=== PATIENT | female | born 1990 | race Caucasian/White ===

== ENCOUNTER 2017-12-14 10:06 | Outpatient (CLI) | payer MEDICAID, SELFPAY ==
--- NOTE | 2017-12-14 10:02 | DI.RAD_ITS ---
SYMPTOMS/DIAGNOSIS: LT WRIST PAIN LEFT WRIST: Three views. No priors. No bone or joint abnormality is identified. The soft tissues are unremarkable.
== END 2017-12-14 10:26 ==
PROVIDERS: PCP Nurse Practitioner Family; Visit Provider Physician Assistant
DX: M25.532 Pain in left wrist (principal)
CPT/HCPCS: 73110

== ENCOUNTER 2017-12-24 09:06 | Outpatient (CLI) | payer MEDICAID, SELFPAY ==
[2017-12-24 12:59] LABS: Anion Gap 8.5 mmol/L (3-11); BUN 12 mg/dL (7-18); CO2 27.5 mmol/L (21.0-32.0); CREATININE 0.72 mg/dL (0.55-1.02); Chloride 105 mmol/L (98-107); Cholesterol 192 mg/dL (50-200); Glucose 81 mg/dL (70-100); HDL Cholesterol 75 mg/dL (40-60); LDL CHOLESTEROL 114 mg/dL (<100); Potassium 4.3 mmol/L (3.5-5.1); Sodium 141 mmol/L (136-145); Triglyceride 51 mg/dL (30-150)
== END 2017-12-24 09:26 ==
PROVIDERS: PCP Nurse Practitioner Family; Visit Provider Nurse Practitioner Family
DX: F32.9 Major depressive disorder, single episode, unspecified (principal)
CPT/HCPCS: 36415; 80048; 80061; 83721

== ENCOUNTER 2018-05-02 08:32 | Emergency (ER) | payer MEDICAID, SELFPAY ==
[2018-05-02 08:59] VITALS: BP 103/66; PULSE 126; TEMP 37.5; O2SAT 100
--- NOTE | 2018-05-02 09:18 | DI.CT_ITS ---
SYMPTOMS/DIAGNOSIS: STREP THROAT, CONCERN FOR ABSCESS CT SCAN OF THE NECK: CT scan of the neck was performed following the uneventful administration of intravenous contrast material. There are no priors for comparison. The visualized intracranial structures are unremarkable. The visualized orbits and retroorbital soft tissues are unremarkable. The visualized paranasal sinuses are clear. The mastoid air cells are well pneumatized. There is mild enlargement of the palatine tonsils. No abscess is identified. No significant airway narrowing is seen. The remainder of the nasopharynx, oropharynx, hypopharynx and larynx are unremarkable. The thyroid gland is unremarkable. Subcentimeter lymph nodes are seen in the neck. These are likely reactive. The parotid and submandibular glands are unremarkable. The lung apices are clear. Mild degenerative changes are seen in the spine. IMPRESSION: 1. Mild enlargement of the palatine tonsils consistent with tonsillitis. 2. No evidence of an abscess. The findings were discussed with Dr. Felicita Garcia of the Emergency Department on the date of the examination.
[2018-05-02] MEDS: Lactated Ringers 1,000 ML 1000 ML IV ×2 (09:35→11:25)
[2018-05-02] MEDS: Normal Saline Flush 10 ML SYR IVP (09:35)
--- NOTE | 2018-05-02 09:44 | W.ED.GENAD ---
Discharge Plan Disposition Patient Disposition: HOME Condition: Stable Discharge Details Chief Complaint: Sorethroat Clinical Impression: Acute streptococcal pharyngitis Primary Care Provider: Nuzhat Garcia ED Provider: Felicita Garcia Home Meds and New Rx's Prescriptions: New penicillin V potassium 500 mg tablet 500 mg PO BID 10 Days Qty: 19 RF: 0 Continued diclofenac potassium 50 mg tablet 50 mg PO BID Qty: 30 RF: 0 sertraline 100 mg tablet 100 mg PO DAILY Qty: 90 RF: 4 No Action ondansetron HCl 8 mg tablet 8 mg PO TID PRN (Reason: nausea and vomiting) Qty: 30 RF: 0 prochlorperazine maleate [Compazine] 10 mg tablet 10 mg PO Q6H PRN (Reason: nausea and vomiting) Qty: 10 RF: 0 ranitidine HCl 300 mg capsule 300 mg PO QHS Qty: 14 RF: 0 Discharge Instructions Instructions: Pharyngitis (ED) Additional Instructions: Please return immediately to the emergency department if you develop any new or worsening symptoms or if you become otherwise concerned. It is extremely important that you make an appointment to be seen as soon as possible in follow-up for this visit by your primary care doctor. Stand Alone Forms: Work Release Referrals: Nuzhat Garcia GRADUATE ENGINEER [Primary Care Provider] - Discharge Data Discharge Date/Time-TO BE ENTERED AT DEPARTURE: 05/02/18 12:21 Medical Decision Making Amina Jones Is a 27-year-old woman with history of depression, TMJ pain who presented to the emergency department with sore throat since yesterday, also with difficulty swallowing and pain with lateral rotation of her neck. On exam patient appears uncomfortable but nontoxic. Posterior pharynx is erythematous, uvula is midline. Patient is tachycardic. Concern for bacterial pharyngitis, possible retropharyngeal abscess versus less likely peritonsillar abscess. Plan for screening labs, CT neck, IV fluid hydration. CT neck negative for abscess. Strep test positive. Dexamethasone given patient with significant pain with swallowing. She is taking fluids without issue in the emergency department at this time. On reassessment patient's heart rate is 100. Will treat with penicillin. I had a lengthy discussion with the patient regarding return to emergency department precautions, home care, and importance of outpatient follow-up with her PCP. Patient verbalized understanding of the plan and is amenable. All questions were answered. Medical Records Medical records reviewed: Yes I reviewed the patient's medical records. Imaging Data Radiologic Study: Attestation: I personally reviewed and interpreted this imaging study as follows: Radiologist's impression: CT SCAN OF THE NECK: CT scan of the neck was performed following the uneventful administration of intravenous contrast material. There are no priors for comparison. The visualized intracranial structures are unremarkable. The visualized orbits and retroorbital soft tissues are unremarkable. The visualized paranasal sinuses are clear. The mastoid air cells are well pneumatized. There is mild enlargement of the palatine tonsils. No abscess is identified. No significant airway narrowing is seen. The remainder of the nasopharynx, oropharynx, hypopharynx and larynx are unremarkable. The thyroid gland is unremarkable. Subcentimeter lymph nodes are seen in the neck. These are likely reactive. The parotid and submandibular glands are unremarkable. The lung apices are clear. Mild degenerative changes are seen in the spine. IMPRESSION: 1. Mild enlargement of the palatine tonsils consistent with tonsillitis. 2. No evidence of an abscess. Lab Data Lab results reviewed: Yes I reviewed the patient's lab results. Laboratory Tests Range/Units 05/02/18 05/02/18 05/02/18 09:35 09:35 09:35 WBC (4.4-10.8) k/cumm 13.75 H RBC (4.00-5.20) m/cumm 4.40 Hgb (12.0-15.5) g/dL 12.8 Hct (36.0-46.0) % 38.5 MCV (80-95) fL 87.5 MCH (27.0-33.0) pg 29.1 MCHC (32.0-36.0) g/dL 33.2 RDW (11.7-14.6) % 14.2 Plt Count (130-400) x1000/uL 224 MPV (8.0-11.0) fL 10.0 Immature Gran % 0.3 Neutrophils % 86.1 Lymphocytes % 7.2 Monocytes % 5.7 Eosinophils % 0.6 Basophils % 0.1 Absolute Neutrophils (1.2-6.7) k/cumm 11.84 H Absolute Lymphocytes (1.2-3.4) k/cumm 0.99 L Absolute Monocytes (0.11-0.7) k/cumm 0.78 H Absolute Eosinophils (0.0-0.7) k/cumm 0.08 Absolute Basophils (0.0-0.2) k/cumm 0.01 Sodium (136-145) mmol/L 134 L Potassium (3.5-5.1) mmol/L 3.6 Chloride (98-107) mmol/L 100 Carbon Dioxide (21.0-32.0) mmol/L 24.8 Anion Gap (3-11) mmol/L 9.2 BUN (7-18) mg/dL 10 Creatinine (0.55-1.02) mg/dL 0.75 Estimated GFR/1.73 m2 (mL/min/1.73m2) >= 60.00 Glucose (70-100) mg/dL 103 H Lactate (0.6-1.4) mmol/l 0.8 Calcium (8.5-10.1) mg/dL 8.8 HPI General Mode of arrival: ambulatory. Date/Time Provider Initiated Documentation: 05/02/18 09:18. Limitations to Documentation: no limitations. Information obtained by: patient, RN notes reviewed and old records reviewed. HPI Narrative: Amina Jones is a 27-year-old woman with history of depression, TMJ presents emergency department sore throat. Patient reports that she developed sore throat yesterday. Patient reports that she has had pain with swallowing, but has also noticed that it seems difficult for her to swallow. She has had decreased p.o. intake both food and fluids because of this. Patient reports sore throat is worse with turning her head and also swallowing. She has had fevers at home but has not measured temperature. She has had some nausea without vomiting. She denies other pain, shortness of breath, cough, rash, diarrhea. No other recent illness. No recent travel. Related Data Home Medications Medication Instructions Recorded Confirmed sertraline 100 mg tablet 100 mg PO DAILY #90 tab 03/11/18 05/05/18 diclofenac potassium 50 mg tablet 50 mg PO BID #30 tab 04/29/18 05/05/18 penicillin V potassium 500 mg PO BID 10 Days #19 tab 05/02/18 05/05/18 prochlorperazine maleate 10 mg PO Q6H PRN #10 tab 05/03/18 05/05/18 [Compazine] ranitidine HCl 300 mg PO QHS #14 cap 05/03/18 05/05/18 ondansetron HCl 8 mg tablet 8 mg PO TID PRN #30 tab 05/05/18 05/05/18 Previous Rx's Medication Instructions Recorded sertraline 100 mg tablet 100 mg PO DAILY #90 tab 03/11/18 diclofenac potassium 50 mg tablet 50 mg PO BID #30 tab 04/29/18 penicillin V potassium 500 mg PO BID 10 Days #19 tab 05/02/18 prochlorperazine maleate 10 mg PO Q6H PRN #10 tab 05/03/18 [Compazine] ranitidine HCl 300 mg PO QHS #14 cap 05/03/18 ondansetron HCl 8 mg tablet 8 mg PO TID PRN #30 tab 05/05/18 Allergies Allergy/AdvReac Type Severity Reaction Status Date / Time Sulfa (Sulfonamide Allergy Unknown Unverified 05/05/18 15:40 Antibiotics) naproxen AdvReac Unknown GI UPSET Unverified 05/05/18 15:40 General Stated Complaint: Sorethroat BONNIE: 3 Review of Systems Review of Systems Constitutional: reports fevers Eyes: denies eye pain ENT: denies facial pain, dental pain, ear pain, reports sore throat Cardiovascular: denies chest pain Respiratory: denies SOB, cough GI: denies abdominal pain, vomiting, diarrhea : denies flank pain MSK: denies back pain, neck pain, arthralgias, myalgias Skin: denies rash Neuro: denies headaches, numbness, weakness [facility] Medical History Left wrist pain (Acute) TMJ (temporomandibular joint disorder) (Chronic) BPPV (benign paroxysmal positional vertigo) (Inactive) Migraine headache with aura (Inactive) Surgical History H/O left knee surgery (Inactive ~2005) H/O tubal ligation (Inactive 09/30/15) section Family History Mother Diabetes Depression Hyperlipidemia Hypothyroidism Father Diabetes Hyperlipidemia Sister Hyperlipidemia Son ADHD Daughter No problems noted. Daughter No problems noted. Maternal Grandfather COPD (chronic obstructive pulmonary disease) Heart disease Chronic kidney disease Diabetes Depression Maternal Grandmother Colon cancer Paternal Grandfather Heart disease Myocardial infarction Paternal Grandmother Metastatic bone cancer Breast cancer Social History Smoking/Tobacco Use Status: Never Alcohol Intake: current Alcohol Intake frequency: a few times a month Drug use: Never Substance use type: does not use Household members: other Details: 4 current occupation: Cook Pets and animals: Yes Pets and animals: cat(s) Frequency: 3-4 times per week Special matilda needs: No Do you feel safe at home: Yes Do you feel safe in your relationship?: Yes Exam Narrative Exam Narrative: Constitutional: Uncomfortable but [id number], pleasant, conversing normally HENT: head atraumatic/normocephalic/normal inspection, mucous membranes moist. Posterior pharynx erythematous without exudate. Uvula midline. No intraoral lesion. Normal voice. Handling secretions without issue. Eyes: conjunctiva normal, sclera normal, pupils 3mm b/l Neck: no stridor, pain with lateral rotation in both directions, trachea midline Chest: normal inspection Resp: normal work of breathing, LCTAB Cardio: Tachycardic rate, normal rhythm, no murmur appreciated Back: normal inspection, no rash Skin: warm, dry, normal color, no rash Neuro: alert, not altered, grossly non-focal, normal tone Ext: no edema Psych: normal mood, normal affect, normal behavior Course Vital Signs Temperature 37.5 C 05/02/18 08:59 Pulse 126 H 05/02/18 08:59 Blood Pressure 103/66 05/02/18 08:59 Pulse Oximetry 100 05/02/18 08:59 Temperature 37.5 C 05/02/18 08:59 Temperature Source Skin 05/02/18 08:59 Pulse 126 H 05/02/18 08:59 Blood Pressure 103/66 05/02/18 08:59 Blood Pressure Position Sitting 05/02/18 08:59 Pulse Oximetry 100 05/02/18 08:59 Oxygen Delivery Method Room Air 05/02/18 08:59 Oxygen Flow Rate 0 05/02/18 08:59 Lab/Test Results Lab/Test Results: POC Strep Test-QUINN(Rapid) Start: 05/02/18 09:03 Freq: Status: Active Protocol: Document 05/02/18 09:03 CT (Rec: 05/02/18 09:03 CT [id number]) Strep test-QUINN(Rapid)-POC POC-Strep test-QUINN (Rapid) Positive POC-Strep test-QUINN (Rapid) Positive
[2018-05-02 09:46] LABS: Lactate-non-spesis 0.8 mmol/l (0.6-1.4)
[2018-05-02 09:49] LABS: Abs Immature Grans 0.04 k/cumm (0.0-0.09); Absolute Basophil Count 0.01 k/cumm (0.0-0.2); Absolute Eosinophil Count 0.08 k/cumm (0.0-0.7); Absolute Lymphocyte Count 0.99 k/cumm (1.2-3.4); Absolute Monocyte Count 0.78 k/cumm (0.11-0.7); Absolute Neutrophil Count 11.84 k/cumm (1.2-6.7); Basophils % 0.1; Eosinophils % 0.6; HCT 38.5 % (36.0-46.0); HGB 12.8 g/dL (12.0-15.5); Immature Grans % 0.3; Lymphocytes % 7.2; Mean Corp. HGB Concentration 33.2 g/dL (32.0-36.0); Mean Corpuscular Hemoglobin 29.1 pg (27.0-33.0); Mean Corpuscular Volume 87.5 fL (80-95); Monocytes % 5.7; Neutrophils % 86.1; Platelet Count 224 x1000/uL (130-400); RBC Distribution Width 14.2 % (11.7-14.6); White Blood Cell Count 13.75 k/cumm (4.4-10.8)
[2018-05-02 09:56] LABS: Anion Gap 9.2 mmol/L (3-11); BUN 10 mg/dL (7-18); CO2 24.8 mmol/L (21.0-32.0); CREATININE 0.75 mg/dL (0.55-1.02); Calcium 8.8 mg/dL (8.5-10.1); Chloride 100 mmol/L (98-107); Glucose 103 mg/dL (70-100); Potassium 3.6 mmol/L (3.5-5.1); Sodium 134 mmol/L (136-145)
[2018-05-02] MEDS: Omnipaque 350 MG/ML 100 ML BTL IV (10:29)
[2018-05-02] MEDS: Penicillin V POTASSIUM 500 MG TAB PO (10:53)
[2018-05-02 11:15] VITALS: BP 106/63; PULSE 112; RESP 14; TEMP 37.9; O2SAT 99
[2018-05-02 11:34] VITALS: TEMP 37.9
[2018-05-02] MEDS: Acetaminophen 500 MG TAB 1000 MG PO (11:34)
[2018-05-02] MEDS: Dexamethasone 10 MG/ML VIAL IM (11:39)
[2018-05-02 11:48] VITALS: BP 108/66; PULSE 105; RESP 14; TEMP 37.8; O2SAT 98
[2018-05-02 12:10] VITALS: TEMP 37.8
[2018-05-02 12:12] VITALS: BP 104/63; PULSE 104; RESP 14; TEMP 37.8; O2SAT 98
--- NOTE | 2018-05-10 13:50 | ED.GENADUL_ITS ---
Discharge Plan Disposition Patient Disposition: HOME Condition: Stable Discharge Details Chief Complaint: Sorethroat Clinical Impression: Acute streptococcal pharyngitis Primary Care Provider: Nuzhat Garcia ED Provider: Felicita Garcia Home Meds and New Rx's Prescriptions: New penicillin V potassium 500 mg tablet 500 mg PO BID 10 Days Qty: 19 RF: 0 Continued diclofenac potassium 50 mg tablet 50 mg PO BID Qty: 30 RF: 0 sertraline 100 mg tablet 100 mg PO DAILY Qty: 90 RF: 4 No Action ondansetron HCl 8 mg tablet 8 mg PO TID PRN (Reason: nausea and vomiting) Qty: 30 RF: 0 prochlorperazine maleate [Compazine] 10 mg tablet 10 mg PO Q6H PRN (Reason: nausea and vomiting) Qty: 10 RF: 0 ranitidine HCl 300 mg capsule 300 mg PO QHS Qty: 14 RF: 0 Discharge Instructions Instructions: Pharyngitis (ED) Additional Instructions: Please return immediately to the emergency department if you develop any new or worsening symptoms or if you become otherwise concerned. It is extremely important that you make an appointment to be seen as soon as possible in follow- up for this visit by your primary care doctor. Stand Alone Forms: Work Release Referrals: Nuzhat Garcia NON DESTRUCTIVE TESTING INSPECTOR [Primary Care Provider] - Discharge Data Discharge Date/Time-TO BE ENTERED AT DEPARTURE: 05/02/18 12:21 Medical Decision Making Amina Jones Is a 27-year-old woman with history of depression, TMJ pain who presented to the emergency department with sore throat since yesterday, also with difficulty swallowing and pain with lateral rotation of her neck. On exam patient appears uncomfortable but nontoxic. Posterior pharynx is erythematous, uvula is midline. Patient is tachycardic. Concern for bacterial pharyngitis, possible retropharyngeal abscess versus less likely peritonsillar abscess. Plan for screening labs, CT neck, IV fluid hydration. CT neck negative for abscess. Strep test positive. Dexamethasone given patient with significant pain with swallowing. She is taking fluids without issue in the emergency department at this time. On reassessment patient's heart rate is 100. Will treat with penicillin. I had a lengthy discussion with the patient regarding return to emergency department precautions, home care, and importance of outpatient follow-up with her PCP. Patient verbalized understanding of the plan and is amenable. All questions were answered. Medical Records Medical records reviewed: Yes I reviewed the patient's medical records. Imaging Data Radiologic Study: Attestation: I personally reviewed and interpreted this imaging study as follows: Radiologist's impression: CT SCAN OF THE NECK: CT scan of the neck was performed following the uneventful administration of intravenous contrast material. There are no priors for comparison. The visualized intracranial structures are unremarkable. The visualized orbits and retroorbital soft tissues are unremarkable. The visualized paranasal sinuses are clear. The mastoid air cells are well pneumatized. There is mild enlargement of the palatine tonsils. No abscess is identified. No significant airway narrowing is seen. The remainder of the nasopharynx, oropharynx, hypopharynx and larynx are unremarkable. The thyroid gland is unremarkable. Subcentimeter lymph nodes are seen in the neck. These are likely reactive. The parotid and submandibular glands are unremarkable. The lung apices are clear. Mild degenerative changes are seen in the spine. IMPRESSION: 1. Mild enlargement of the palatine tonsils consistent with tonsillitis. 2. No evidence of an abscess. Lab Data Lab results reviewed: Yes I reviewed the patient's lab results. Laboratory Tests Range/Units 05/02/18 05/02/18 05/02/18 09:35 09:35 09:35 WBC (4.4-10.8) k/cumm 13.75 H RBC (4.00-5.20) m/cumm 4.40 Hgb (12.0-15.5) g/dL 12.8 Hct (36.0-46.0) % 38.5 MCV (80-95) fL 87.5 MCH (27.0-33.0) pg 29.1 MCHC (32.0-36.0) g/dL 33.2 RDW (11.7-14.6) % 14.2 Plt Count (130-400) x1000/uL 224 MPV (8.0-11.0) fL 10.0 Immature Gran % 0.3 Neutrophils % 86.1 Lymphocytes % 7.2 Monocytes % 5.7 Eosinophils % 0.6 Basophils % 0.1 Absolute Neutrophils (1.2-6.7) k/cumm 11.84 H Absolute Lymphocytes (1.2-3.4) k/cumm 0.99 L Absolute Monocytes (0.11-0.7) k/cumm 0.78 H Absolute Eosinophils (0.0-0.7) k/cumm 0.08 Absolute Basophils (0.0-0.2) k/cumm 0.01 Sodium (136-145) mmol/L 134 L Potassium (3.5-5.1) mmol/L 3.6 Chloride (98-107) mmol/L 100 Carbon Dioxide (21.0-32.0) mmol/L 24.8 Anion Gap (3-11) mmol/L 9.2 BUN (7-18) mg/dL 10 Creatinine (0.55-1.02) mg/dL 0.75 Estimated GFR/1.73 m2 (mL/min/1.73m2) >= 60.00 Glucose (70-100) mg/dL 103 H Lactate (0.6-1.4) mmol/l 0.8 Calcium (8.5-10.1) mg/dL 8.8 HPI General Mode of arrival: ambulatory . Date/Time Provider Initiated Documentation: 05/02/18 09:18 . Limitations to Documentation: no limitations . Information obtained by: patient, RN notes reviewed and old records reviewed . HPI Narrative: Amina Jones is a 27-year-old woman with history of depression, TMJ presents emergency department sore throat. Patient reports that she developed sore throat yesterday. Patient reports that she has had pain with swallowing, but has also noticed that it seems difficult for her to swallow. She has had decreased p.o. intake both food and fluids because of this. Patient reports sore throat is worse with turning her head and also swallowing. She has had fevers at home but has not measured temperature. She has had some nausea without vomiting. She denies other pain, shortness of breath, cough, rash, diarrhea. No other recent illness. No recent travel. Related Data Home Medications Medication Instructions Recorded Confirmed sertraline 100 mg tablet 100 mg PO DAILY #90 tab 03/11/18 05/05/18 diclofenac potassium 50 mg tablet 50 mg PO BID #30 tab 04/29/18 05/05/18 penicillin V potassium 500 mg PO BID 10 Days #19 tab 05/02/18 05/05/18 prochlorperazine maleate 10 mg PO Q6H PRN #10 tab 05/03/18 05/05/18 [Compazine] ranitidine HCl 300 mg PO QHS #14 cap 05/03/18 05/05/18 ondansetron HCl 8 mg tablet 8 mg PO TID PRN #30 tab 05/05/18 05/05/18 Previous Rx's Medication Instructions Recorded sertraline 100 mg tablet 100 mg PO DAILY #90 tab 03/11/18 diclofenac potassium 50 mg tablet 50 mg PO BID #30 tab 04/29/18 penicillin V potassium 500 mg PO BID 10 Days #19 tab 05/02/18 prochlorperazine maleate 10 mg PO Q6H PRN #10 tab 05/03/18 [Compazine] ranitidine HCl 300 mg PO QHS #14 cap 05/03/18 ondansetron HCl 8 mg tablet 8 mg PO TID PRN #30 tab 05/05/18 Allergies Allergy/AdvReac Type Severity Reaction Status Date / Time Sulfa (Sulfonamide Allergy Unknown Unverified 05/05/18 15:40 Antibiotics) naproxen AdvReac Unknown GI UPSET Unverified 05/05/18 15:40 General Stated Complaint: Sorethroat BONNIE: 3 Review of Systems Review of Systems Constitutional: reports fevers Eyes: denies eye pain ENT: denies facial pain, dental pain, ear pain, reports sore throat Cardiovascular: denies chest pain Respiratory: denies SOB, cough GI: denies abdominal pain, vomiting, diarrhea : denies flank pain MSK: denies back pain, neck pain, arthralgias, myalgias Skin: denies rash Neuro: denies headaches, numbness, weakness [facility] Medical History Left wrist pain (Acute) TMJ (temporomandibular joint disorder) (Chronic) BPPV (benign paroxysmal positional vertigo) (Inactive) Migraine headache with aura (Inactive) Surgical History H/O left knee surgery (Inactive ~2005) H/O tubal ligation (Inactive 09/30/15) section Family History Mother Diabetes Depression Hyperlipidemia Hypothyroidism Father Diabetes Hyperlipidemia Sister Hyperlipidemia Son ADHD Daughter No problems noted. Daughter No problems noted. Maternal Grandfather COPD (chronic obstructive pulmonary disease) Heart disease Chronic kidney disease Diabetes Depression Maternal Grandmother Colon cancer Paternal Grandfather Heart disease Myocardial infarction Paternal Grandmother Metastatic bone cancer Breast cancer Social History Smoking/Tobacco Use Status: Never Alcohol Intake: current Alcohol Intake frequency: a few times a month Drug use: Never Substance use type: does not use Household members: other Details: 4 current occupation: Cook Pets and animals: Yes Pets and animals: cat(s) Frequency: 3-4 times per week Special matilda needs: No Do you feel safe at home: Yes Do you feel safe in your relationship?: Yes Exam Narrative Exam Narrative: Constitutional: Uncomfortable but [id number], pleasant, conversing normally HENT: head atraumatic/normocephalic/normal inspection, mucous membranes moist. Posterior pharynx erythematous without exudate. Uvula midline. No intraoral lesion. Normal voice. Handling secretions without issue. Eyes: conjunctiva normal, sclera normal, pupils 3mm b/l Neck: no stridor, pain with lateral rotation in both directions, trachea midline Chest: normal inspection Resp: normal work of breathing, LCTAB Cardio: Tachycardic rate, normal rhythm, no murmur appreciated Back: normal inspection, no rash Skin: warm, dry, normal color, no rash Neuro: alert, not altered, grossly non-focal, normal tone Ext: no edema Psych: normal mood, normal affect, normal behavior Course Vital Signs Temperature 37.5 C 05/02/18 08:59 Pulse 126 H 05/02/18 08:59 Blood Pressure 103/66 05/02/18 08:59 Pulse Oximetry 100 05/02/18 08:59 Temperature 37.5 C 05/02/18 08:59 Temperature Source Skin 05/02/18 08:59 Pulse 126 H 05/02/18 08:59 Blood Pressure 103/66 05/02/18 08:59 Blood Pressure Position Sitting 05/02/18 08:59 Pulse Oximetry 100 05/02/18 08:59 Oxygen Delivery Method Room Air 05/02/18 08:59 Oxygen Flow Rate 0 05/02/18 08:59 Lab/Test Results Lab/Test Results: POC Strep Test-QUINN(Rapid) Start: 05/02/18 09:03 Freq: Status: Active Protocol: Document 05/02/18 09:03 CT (Rec: 05/02/18 09:03 CT [email or web address]) Strep test-QUINN(Rapid)-POC POC-Strep test-QUINN (Rapid) Positive POC-Strep test-QUINN (Rapid) Positive
== END 2018-05-02 12:21 | disposition home or self-care (01) ==
PROVIDERS: Emergency Provider Student in an Organized Health Care Education/Training Program; PCP Nurse Practitioner Family
DX: J02.0 Streptococcal pharyngitis (principal)
CPT/HCPCS: 36415; 70491; 80048; 81025; 96361; 96374; 99285; 83605; 85025; 99283; J1100; J3490

== ENCOUNTER 2018-05-03 16:23 | Emergency (ER) | payer MEDICAID, SELFPAY ==
[2018-05-03 16:27] VITALS: BP 110/66; PULSE 76; RESP 16; TEMP 36.7; O2SAT 99
[2018-05-03] MEDS: Dexamethasone 4 MG TAB 8 MG PO (16:50)
--- NOTE | 2018-05-03 17:05 | ED.GENADUL_ITS ---
Discharge Plan Disposition Patient Disposition: HOME Condition: Stable Discharge Details Chief Complaint: Recheck Clinical Impression: Pharyngitis, Facial swelling Primary Care Provider: Nuzhat Garcia ED Provider: Esequiel Lainez Home Meds and New Rx's Prescriptions: New prochlorperazine maleate [Compazine] 10 mg tablet 10 mg PO Q6H PRN (Reason: nausea and vomiting) Qty: 10 RF: 0 ranitidine HCl 300 mg capsule 300 mg PO QHS Qty: 14 RF: 0 No Action diclofenac potassium 50 mg tablet 50 mg PO BID Qty: 30 RF: 0 sertraline 100 mg tablet 100 mg PO DAILY Qty: 90 RF: 4 penicillin V potassium 500 mg tablet 500 mg PO BID 10 Days Qty: 19 RF: 0 Discharge Instructions Instructions: Pharyngitis (ED) Additional Instructions: 1. Drink plenty of fluids. Add solids as tolerated. 2. Continue all medications as prescribed. 3. Acetaminophen 1000mg every 4 hours (up to 5 time a day) and/or ibuprofen 600mg every 6 hours as needed for fever or pain. 4. Compazine 10 mg every 6 hours as needed for nausea/vomiting 5. Ranitidine 300 mg at bedtime. Return to the Emergency Department (ED) if your condition worsens, does not improve as expected, or for ANY other concerns. Specifically, return if you have new or uncontrolled pain, worsening fever, difficulty breathing, vomiting, or are unable to drink fluids. Medical Decision Making 19-year-old with a recent diagnosis of strep pharyngitis returns for evaluation of new facial flushing and mild facial swelling. Onset of symptoms occurred hours after taking her previous dose of penicillin. She also has had increased nausea since starting her oral antibiotics. Exam was significant for an erythematous hypopharynx with no evidence of abscess as well as a mild bilateral malar rash and mild swelling of the cheeks. Treated in the ED with oral Decadron and oral ranitidine. Discharged home with oral Compazine for use as needed for nausea. Also will take ranitidine on a regular basis while taking her antibiotics. Pt evaluated immediately prior to discharge with improved symptoms, normal vital signs, and tolerating PO. The patient feels appropriate for discharge home. Discussed clinical/diagnostic findings. Discharged with a clear plan for outpatient follow up. Given usual and customary return instructions prior to discharge. Medical Records Medical records reviewed: Yes I reviewed the patient's medical records. HPI 27-year-old woman with a history of migraine headaches, BPV, and TMJ. Evaluated here yesterday for a new pharyngitis. Evaluation included a positive rapid strep screen, IV hydration, and treatment with steroids. Clinically improved at discharge and has has been able to tolerate liquid intake since. However, today at approximately 1300, noted atypical bilateral facial flushing and swelling. Denies other generalized exanthem, dyspnea, throat swelling, or worsening throat pain. Has no history of similar symptoms. Has had no previous drug reaction. She also has had worsening nausea since her discharge with no emesis. General Date/Time Provider Initiated Documentation: 05/03/18 16:46 . Related Data Home Medications Medication Instructions Recorded Confirmed sertraline 100 mg tablet 100 mg PO DAILY #90 tab 03/11/18 05/03/18 diclofenac potassium 50 mg tablet 50 mg PO BID #30 tab 04/29/18 05/03/18 penicillin V potassium 500 mg PO BID 10 Days #19 tab 05/02/18 05/03/18 prochlorperazine maleate 10 mg PO Q6H PRN #10 tab 05/03/18 [Compazine] ranitidine HCl 300 mg PO QHS #14 cap 05/03/18 Previous Rx's Medication Instructions Recorded sertraline 100 mg tablet 100 mg PO DAILY #90 tab 03/11/18 diclofenac potassium 50 mg tablet 50 mg PO BID #30 tab 04/29/18 penicillin V potassium 500 mg PO BID 10 Days #19 tab 05/02/18 prochlorperazine maleate 10 mg PO Q6H PRN #10 tab 05/03/18 [Compazine] ranitidine HCl 300 mg PO QHS #14 cap 05/03/18 Allergies Allergy/AdvReac Type Severity Reaction Status Date / Time Sulfa (Sulfonamide Allergy Unknown Unverified 05/03/18 16:31 Antibiotics) naproxen AdvReac Unknown GI UPSET Unverified 05/03/18 16:31 General Stated Complaint: Recheck BONNIE: 3 Review of Systems Review of Systems All systems are reviewed and are unremarkable except as noted in HPI and below: CONSTITUTIONAL: no fevers/chills, nausea with no emesis EYES: no change in vision HEENT: no throat pain or difficulty swallowing; no neck pain CARDIOVASCULAR: no chest pain, palpitations, leg swelling, or diaphoresis RESPIRATORY: no cough, dyspnea, wheezing GASTROINTESTINAL: no abdominal pain, melena, nausea/emesis GENITOURINARY: no dysuria, flank pain, MUSCULOSKELETAL: no pack pain, myalgias, arthralgias INTEGUMENTARY: New facial rash with mild facial swelling worse on the left side than right NEUROLOGIC: no headache, focal weakness, difficulty with speech, numbness PSYCHIATRIC: no confusion, no anxiety HEME: no easy bruising or bleeding ALLERGIC: no urticaria PFSH Medical History Left wrist pain (Acute) TMJ (temporomandibular joint disorder) (Chronic) BPPV (benign paroxysmal positional vertigo) (Inactive) Migraine headache with aura (Inactive) Surgical History H/O left knee surgery (Inactive ~2005) H/O tubal ligation (Inactive 09/30/15) section Family History Mother Diabetes Depression Hyperlipidemia Hypothyroidism Father Diabetes Hyperlipidemia Sister Hyperlipidemia Son ADHD Daughter No problems noted. Daughter No problems noted. Maternal Grandfather COPD (chronic obstructive pulmonary disease) Heart disease Chronic kidney disease Diabetes Depression Maternal Grandmother Colon cancer Paternal Grandfather Heart disease Myocardial infarction Paternal Grandmother Metastatic bone cancer Breast cancer Social History Smoking/Tobacco Use Status: Never Alcohol Intake: current Alcohol Intake frequency: a few times a month Drug use: Never Substance use type: does not use Household members: other Details: 4 Pets and animals: Yes Pets and animals: cat(s) Frequency: 3-4 times per week Special matilda needs: No Do you feel safe at home: Yes Do you feel safe in your relationship?: Yes Exam Narrative Exam Narrative: Nursing note and vital signs have been reviewed and noted. GENERAL: alert, active, no acute distress, well -hydrated, well-nourished HEENT: atraumatic/normocephalic, PERRLA, EOMI, conjunctiva clear, external ears/canals normal, nasal mucosa normal; oropharynx with bilateral peritonsillar erythema and mild tonsillar swelling right greater than left. Uvula is midline with no evidence of peritonsillar abscess. Bilateral malar exanthem with buccal swelling left greater than right NECK: supple, full range of motion; no significant anterior cervical adenopathy CARDIOVASCULAR: nl pulses, no edema PULMONARY: nl effort, no audible wheezing or stridor ABDOMEN: non-distended; no significant tenderness EXTREMITY: normal muscle tone, all joints with FROM, no deformity NUERO: normal mentation, moving all extremities, normal stance and gait, PSYCH: alert and oriented SKIN: no new rashes or lesions Course Vital Signs Temperature 98.1 F 05/03/18 16:27 Pulse 76 05/03/18 16:27 Respiratory Rate 16 05/03/18 16:27 Blood Pressure 110/66 05/03/18 16:27 Pulse Oximetry 99 05/03/18 16:27 Temperature 98.1 F 05/03/18 16:27 Temperature Source Skin 05/03/18 16:27 Pulse 76 05/03/18 16:27 Respiratory Rate 16 05/03/18 16:27 Respiratory Effort Non-Labored 05/03/18 16:32 Blood Pressure 110/66 05/03/18 16:27 Blood Pressure Position Sitting 05/03/18 16:27 Pulse Oximetry 99 05/03/18 16:27 Oxygen Delivery Method Room Air 05/03/18 16:27 Oxygen Flow Rate 0 05/03/18 16:27
== END 2018-05-03 17:00 | disposition home or self-care (01) ==
PROVIDERS: Emergency Provider Emergency Medicine; PCP Nurse Practitioner Family
DX: J02.9 Acute pharyngitis, unspecified (principal); R22.0 Localized swelling, mass and lump, head
CPT/HCPCS: 99283; J8540

== ENCOUNTER 2018-07-25 10:24 | Outpatient (CLI) | payer MEDICAID, SELFPAY ==
[2018-07-25 12:43] LABS: HCT 40.6 % (36.0-46.0); Mean Corpuscular Hemoglobin 28.1 pg (27.0-33.0); Mean Corpuscular Volume 87.9 fL (80-95); Platelet Count 351 x1000/uL (130-400); RBC 4.62 m/cumm (4.00-5.20); White Blood Cell Count 5.79 k/cumm (4.4-10.8)
[2018-07-25 13:33] LABS: ALT 25 U/L (12-78); AST 17 U/L (15-37); Albumin 3.7 g/dL (3.4-5.0); Alkaline Phosphatase 99 U/L (46-116); Anion Gap 7.4 mmol/L (3-11); BUN 9 mg/dL (7-18); Bilirubin, Total 0.5 mg/dL (0.2-1.0); CO2 28.6 mmol/L (21.0-32.0); CREATININE 0.62 mg/dL (0.55-1.02); Calcium 9.1 mg/dL (8.5-10.1); Chloride 103 mmol/L (98-107); FREE T4 0.89 ng/dL (0.76-1.46); Glucose 81 mg/dL (70-100); Potassium 4.8 mmol/L (3.5-5.1); Sodium 139 mmol/L (136-145); TSH 1.83 uIU/mL (0.358-3.74); Total Protein 7.4 g/dL (6.4-8.2)
== END 2018-07-25 10:44 ==
PROVIDERS: PCP Nurse Practitioner Family; Visit Provider Nurse Practitioner Family
DX: R42 Dizziness and giddiness (principal)
CPT/HCPCS: 36415; 80053; 85027; 84439; 84443

== ENCOUNTER 2019-02-07 12:41 | Outpatient (REF) | payer MEDICAID, SELFPAY | END 2019-02-07 13:01 | LOC: LBN 12:41 | PROVIDERS: PCP Nurse Practitioner Family; Visit Provider Family Medicine | DX: J02.9 Acute pharyngitis, unspecified (principal) | CPT/HCPCS: 87070 ==

== ENCOUNTER 2019-08-17 21:48 | Emergency (ER) | payer MEDICAID, SELFPAY ==
[2019-08-17] VITALS (24 sets, daily range): BP systolic 113–132; BP diastolic 59–84; PULSE 76–101; RESP 12–23; TEMP 36.7; O2SAT 99–100
--- NOTE | 2019-08-17 21:59 | ED.GENADUL_ITS ---
Discharge Plan Disposition Patient Disposition: HOME Condition: Good Discharge Details Chief Complaint: Chest Pain Clinical Impression: Acute pericarditis Primary Care Provider: Nuzhat Garcia ED Provider: Alber Agostos and New Rx's Prescriptions: New indomethacin 50 mg capsule 50 mg PO TID Qty: 30 RF: 0 colchicine 0.6 mg capsule 0.6 mg PO BID Qty: 20 RF: 0 hydrocodone-acetaminophen 5-325 mg tablet 1 tab PO BID PRNQty: 4 RF: 0 Discharge Instructions Instructions: Acute Pericarditis (ED) Additional Instructions: Please get your prescriptions filled in the morning. Start taking indomethacin in the morning. Take your next dose of colchicine tomorrow night. He hydrocodo ne/acetaminophen from here is for severe pain if needed. Rest and take it easy until follow-up with primary care. Contact primary care today for follow-up appointment. Outpatient echo has been ordered and you should be contacted by the hospital as to when to come in for that appointment. Return to ED if you develop fever, new or worsening pain, shortness of breath, other concerns or problems. Stand Alone Forms: Work Release Referrals: Nuzhat Garcia NP [Primary Care Provider] - Discharge Data Discharge Date/Time-TO BE ENTERED AT DEPARTURE: 08/18/19 02:30 Medical Decision Making <RAZ Rosario - Last Filed: 08/18/19 12:57> Patient is a 29-year-old female presents today with chief complaint of chest pain. She reports the pain came on a few hours prior to arrival when she is cleaning her house. Reports that she was picking up things on the floor when she had sudden onset of left-sided central chest pain that radiated to the central anterior neck. States she had some shortness of breath associated with the discomfort. Pain is not worse with exertion. She denies any nausea vomiting. States that she had been lifting heavy objects at work recently. No chest trauma. Patient is not an active smoker. She denies alcohol or illicit drug use. Patient is to status post tubal ligation. No personal or significant familial history of cardiac disease. No history of DVT or PE. Patient is not on any hormone replacement. Past medical history is pertinent for depression, migraines. On exam, patient appears slightly anxious. She appears to be no respiratory distress. Slightly tachycardic with a heart rate of 99. Normal cardiac auscultation. Lungs are clear. She does have tenderness elicited with palpation about the chest as well as movement of the left upper extremity, in particular adduction of the left shoulder. Abdomen is benign. No calf tenderness, no lower extremity edema. Differential includes musculoskeletal pain, pleurisy, pneumonia, PE, ACS. I do find the latter to less likely. Patient has no history of IV drug use and does not have any evidence of systemic illness suggestive of endocarditis. Her history and exam is most consistent with musculoskeletal discomfort. Will obtain chest x-ray, labs and EKG. ECG was reviewed by Dr. Agosto. Patientin NSR with rate of 91,no acute ischmic changes, he advises no acute abnormality. Labs reviewed. No leukocytosis. CBC within normal limits, CMP within normal limits, troponin less than 0.05, TSH normal, d-dimer 331. Chest x-ray reviewed by radiologist: FINDINGS: Lungs: No focal airspace consolidation. Pleural space: No large pleural effusion. No large pneumothorax. Heart/Mediastinum: Cardiomediastinal silhouette is unchanged. Bones/joints: No displaced fracture. IMPRESSION: No acute findings. Patient given Tylenol, Toradol and Lidoderm patch to help with discomfort. Despite the above interventions, the patient continues to endorse severe pain with no improvement. The pain does radiate centrally, also considered esophagitis and will give GI cocktail. GI cocktail also unsuccessful at alleviating discomfort. Patient continues to rate the pain at an 8 out of 10. Given patient's level of discomfort, will plan to move forward with CT for possible unseen underlying pathology including dissection or PE although I do find these less likely with no widening of the mediastinum, tearing pain, back pain both negative d-dimer. We will also plan for repeat troponin. <Alber Agosto MD - Last Filed: 08/18/19 02:29> Patient had presented with acute onset of chest pain radiating to left shoulder and neck. It is worse with movement and breathing. She does not necessarily feel short of breath but hurts to take a breath. She denies any risk factors for PE or ACS. She denies fever or viral illness. Initial work-up unremarkable but continues to have pain despite Tylenol, Toradol, Lidoderm patch. Because of this CTA of chest was performed. This shows no PE or dissection. However there is evidence of probable pericardial thickening with small effusion. Her repeat EKG does appear to be developing [place] depression rather diffusely. Not completely obvious but seems to be there. Repeat troponin negative. Sed rate and C- reactive protein sent. Patient reevaluated. I do not hear a friction rub. Pain does not really seem to change with her sitting forward but she is just uncomfortable to begin with. I am going to treat this as acute pericarditis. We will start her on colchicine and indomethacin. Will need outpatient echo and follow-up with primary care with eventual referral to cardiology if needed. We will give her [place] to go pack for her discomfort early on. We did discuss risks and side effects of all the drugs. I did review her in the [place] prescription monitoring system. No narcotics within the last 2 years. Informed consent given and signed. Patient told to return if she develops fever, worsening pain, shortness of breath, other concerns or problems. Lab Data Lab results reviewed: Yes I reviewed the patient's lab results. ECG Data Attestation: I personally reviewed and interpreted this ECG (s) as follows: Prior ECG tracings: available for review Interpretation: Second EKG is sinus rhythm at 91. Normal axis. Normal intervals. She appears to be developing [place] depression throughout. HPI <RAZ Rosario - Last Filed: 08/18/19 12:57> General Mode of arrival: ambulatory . Date/Time Provider Initiated Documentation: 08/17/19 21:59 . Limitations to Documentation: no limitations . Information obtained by: patient and RN notes reviewed . History of Present Illness 29 year old F presents to the emergency department with the chief complaint of chest pain, described as severe, with intensity rated at 9. Quality is described as stabbing, and is localized to the chest. Patient neck. Patient started experiencing this hour(s) and it has been constant. No relieving factors improve symptom(s), No exacerbating factors reported . Patient notes chest pain; denies cough, diaphoresis, fever/chills, headaches, loss of appetite, nausea/vomiting, rash, shortness of breath, syncope and weakness. Patient did receive the following treatments prior to arrival, none Related Data Home Medications Medication Instructions Recorded Confirmed colchicine 0.6 mg PO BID #20 cap 08/18/19 hydrocodone-acetaminophen 1 tab PO BID PRN #4 tab 08/18/19 indomethacin 50 mg PO TID #30 cap 08/18/19 Previous Rx's Medication Instructions Recorded colchicine 0.6 mg PO BID #20 cap 08/18/19 hydrocodone-acetaminophen 1 tab PO BID PRN #4 tab 08/18/19 indomethacin 50 mg PO TID #30 cap 08/18/19 Allergies Allergy/AdvReac Type Severity Reaction Status Date / Time Sulfa (Sulfonamide Allergy Unknown Unverified 08/17/19 22:01 Antibiotics) naproxen AdvReac Unknown GI UPSET Unverified 08/17/19 22:01 General BONNIE: 3 Review of Systems <RAZ Rosario - Last Filed: 08/18/19 12:57> Constitutional Constitutional: Reports as per HPI, Denies chills, Denies fever(s), Denies headache(s), Denies lethargy and Denies poor appetite Eyes Eyes: Denies change in vision ENT Ears, Nose, Mouth, and Throat: Denies dizziness and Denies headache(s) Cardiovascular Cardiovascular: Reports as per HPI, Reports chest pain (no change in chest pain since onset), Reports chest pain at rest, Reports chest pain with activity, Denies rapid heart rate, Denies pedal edema, Denies irregular heart rhythm, Denies claudication, Denies leg edema, Denies lightheadedness, Reports radiating jaw, neck or arm pain (anterior neck), Denies dyspnea and Denies dyspnea on exertion Respiratory Respiratory: Reports as per HPI, Denies chest congestion, Denies cough, Denies pain on inspiration, Denies pain with cough, Denies dyspnea, Denies dyspnea on exertion and Denies wheezing Gastrointestinal Gastrointestinal: Reports as per HPI, Denies abdominal pain, Denies diarrhea, Denies nausea and Denies vomiting Musculoskeletal Musculoskeletal: Reports as per HPI and Denies back pain Integumentary/Breasts Skin/Breast: Reports as per HPI and Denies rash Neurologic Neurologic: Reports as per HPI, Denies dizziness and Denies headache(s) Allergic/Immunologic Allergic/Immunologic: Denies wheezing PFSH <RAZ Rosario - Last Filed: 08/18/19 12:57> Medical History BPPV (benign paroxysmal positional vertigo) (Inactive) Depressive disorder (Chronic) Migraine headache with aura (Inactive) TMJ (temporomandibular joint disorder) (Chronic) Surgical History H/O left knee surgery (Inactive ~2005) Torn Meniscus Repair H/O tubal ligation (Inactive 09/30/15) History of section (Chronic ~2012) 2012 and 2015 Social History Smoking/Tobacco Use Status: Never Alcohol Intake: current Alcohol Intake frequency: a few times a month Drug use: Never Substance use type: does not use Household members: other Details: 4 current occupation: Cook Pets and animals: Yes Pets and animals: cat(s) Frequency: 3-4 times per week Special matilda needs: No Do you feel safe at home: Yes Do you feel safe in your relationship?: Yes Exam <RAZ Rosario - Last Filed: 08/18/19 12:57> Const General: cooperative, healthy appearing, comfortable, no acute distress and well developed Nutritional Appearance: average body habitus and well nourished Orientation: alert, awake and oriented x3 HENMT Head: normal to inspection Ears: hearing grossly normal bilaterally Mouth: moist mucous membranes Neck Neck: normal visual inspection, full ROM, no lymphadenopathy, no meningeal signs, trachea midline, supple and no anterior neck swelling Thyroid: thyroid normal Carotids: normal carotid upstroke and no bruits Chest Chest: normal inspection of the chest, normal palpation of entire chest wall, no crepitus and tenderness (elicited with pressure applied over sternum and with movement of LUE) Resp Effort & Inspection: normal respiratory effort, able to speak in complete sentences and no respiratory distress Auscultation: clear to auscultation bilaterally, no rales, no rhonchi and no wheezes Cardio Rate: regular rate Rhythm: regular rhythm Heart Sounds: S1 normal and S2 normal GI Inspection: normal to inspection, no edema and non-distended Palpation: soft, no hepatosplenomegaly, not firm, no guarding, not rigid and nontender Auscultation: normal bowel sounds Back/Spine/Pelvis Back: no CVA tenderness Thoracic/Lumbar Spine: thoracic and lumbar spine normal to inspection Skin General skin exam: no rashes or lesions noted Trauma: no lacerations or abrasions Neuro General: patient alert, patient awake and patient oriented x3 Cognition: normal cognition Speech: speech normal Gait: normal gait Extrem General: normal to inspection, capillary refill normal, no pedal edema, no calf tenderness and normal gait Psych Appearance: grossly normal and well kempt Mental Status: mental status grossly normal Speech and Movement: speech and movement normal Sign Out <RAZ Rosario - Last Filed: 08/18/19 12:57> Sign Out Data: Sign Out Comment: Patient having chest pain, worse with movement and palpation of the chest wall. Most consistent with musculoskeletal discomfort. CT for PE and dissection pending. Plan for repeat troponin Last updated by Gissell Stafford PA at 08/18/19 00:41
[2019-08-17 22:27] LABS: Abs Immature Grans 0.01 k/cumm (0.0-0.09); Absolute Basophil Count 0.03 k/cumm (0.0-0.2); Absolute Eosinophil Count 0.37 k/cumm (0.0-0.7); Absolute Lymphocyte Count 3.17 k/cumm (1.2-3.4); Absolute Monocyte Count 0.45 k/cumm (0.11-0.7); Absolute Neutrophil Count 3.89 k/cumm (1.2-6.7); Basophils % 0.4; Eosinophils % 4.7; HCT 37.5 % (36.0-46.0); HGB 12.4 g/dL (12.0-15.5); Immature Grans % 0.1 %; Mean Corp. HGB Concentration 33.1 g/dL (32.0-36.0); Mean Corpuscular Hemoglobin 28.8 pg (27.0-33.0); Mean Corpuscular Volume 87.2 fL (80-95); Mean Platelet Volume 9.7 fL (8.0-11.0); Monocytes % 5.7; Neutrophils % 49.1; Platelet Count 302 x1000/uL (130-400); RBC Distribution Width 13.7 % (11.7-14.6); White Blood Cell Count 7.92 k/cumm (4.4-10.8)
--- NOTE | 2019-08-17 22:39 | DI.RAD_ITS ---
EXAM: XR PORTABLE CHEST AP CLINICAL HISTORY: CP, SOB TECHNIQUE: 2D digital imaging was performed. COMPARISON: No exams were available for comparison FINDINGS: MEDIASTINUM: Normal. HEART: Normal. PULMONARY VASCULATURE: Normal. LUNGS: Clear. PLEURAL SPACE: No pleural effusion or pneumothorax. BONE:Normal. OTHER FINDINGS:Normal. IMPRESSION: No acute pulmonary findings. DATA REPOSITORY: RADIATION DOSE DELIVERED:
[2019-08-17 22:49] LABS: ALT 20 U/L (14-59); AST 16 U/L (15-37); Albumin 3.8 g/dL (3.4-5.0); Alkaline Phosphatase 82 U/L (46-116); Anion Gap 7.7 mmol/L (3-11); BUN 13 mg/dL (7-18); Bilirubin, Total 0.4 mg/dL (0.2-1.0); CO2 29.3 mmol/L (21.0-32.0); CREATININE 0.83 mg/dL (0.55-1.02); Calcium 9.3 mg/dL (8.5-10.1); Chloride 103 mmol/L (98-107); Glucose 98 mg/dL (74-106); Potassium 3.6 mmol/L (3.5-5.1); Sodium 140 mmol/L (136-145); Total Protein 7.7 g/dL (6.4-8.2)
[2019-08-17 22:51] LABS: Magnesium 2.2 mg/dL (1.8-2.4); Troponin I < 0.05 ng/mL (<0.06)
--- NOTE | 2019-08-17 22:59 | DI.VRAD_ITS ---
PROCEDURE INFORMATION: Exam: XR Chest, 1 View Exam date and time: 08/17/2019 10:40 PM Age: 29 years old Clinical indication: Other: Cp, SOB TECHNIQUE: Imaging protocol: XR of the chest Views: 1 view. COMPARISON: CR CHEST 2 VIEWS PA,LAT 02/12/2017 8:48 PM FINDINGS: Lungs: No focal airspace consolidation. Pleural space: No large pleural effusion. No large pneumothorax. Heart/Mediastinum: Cardiomediastinal silhouette is unchanged. Bones/joints: No displaced fracture. IMPRESSION: No acute findings. Dictated and Authenticated by: Tracey Bobby MD. Ordering:DAPHNEY Borrero MD
[2019-08-17 23:20] LABS: D-Dimer 331 ng/mlFEU (<500)
[2019-08-17] MEDS: Acetaminophen 500 MG TAB 1000 MG PO (23:27)
[2019-08-17] MEDS: Ketorolac 30 MG/ML VIAL IVP (23:28)
[2019-08-17] MEDS: Normal Saline Flush 10 ML SYR IVP (23:28)
[2019-08-17] MEDS: Lidocaine 5% Patch 1 PATCH TP (23:32)
[2019-08-18] VITALS (16 sets, daily range): BP systolic 106–111; BP diastolic 61–70; PULSE 89–103; RESP 13–22; O2SAT 97–99
--- NOTE | 2019-08-18 01:03 | DI.CT_ITS ---
EXAM: CT CHEST PE CTA CLINICAL HISTORY: chest pain. TECHNIQUE: Imaging Protocol: Axial CT angiography was performed with multi-slice acquisition and mu lti-planar and/or 3D reconstructions. CONTRAST MATERIAL: Intravenous: Omnipaque 350 Contrast volume:75 mL COMPARISON: CT ABD PELVIS WITH CONTRAST from 02/11/2013 FINDINGS: Pulmonary Arteries: No evidence of filling defect to suggest pulmonary emboli. Tracheobronchial tree: Patent where visualized. Mediastinum and Marii: No dominant adenopathy or fluid collection. Pulmonary parenchyma: No consolidation or dominant measurable mass. No architectural distortion. Mild dependent atelectasis. Pleura: No effusion or pneumothorax. Heart: The heart is not dilated. No coronary artery calcifications are seen. No right heart strain. Small pericardial effusion versus pericardial thickening. Aorta: Thoracic aorta non-dilated. No evidence of dissection. Upper abdomen: Unremarkable. Bones: Mild degenerative changes. No acute abnormality. IMPRESSION: 1. No evidence of pulmonary embolism, thoracic aortic dissection or aneurysm. 2. Possible small pericardial effusion versus thickening. RADIATION DOSE DELIVERED: Total DLP Total DLP Total DLP DATA REPOSITORY: All CT scans at this facility are submitted to the National Radiology Data Registry (NRDR) Dose Index Registry (DIR) with the [employer] (ACR). RADIATION OPTIMIZATION: All CT scans at this facility use at least one of these dose optimization te chniques: automated exposure control; mA and/or kV adjustment per patient size (includes targeted exa ms where dose is matched to clinical indication); or iterative reconstruction.
[2019-08-18] MEDS: Normal Saline - Diluent 50 ML VIAL IV (01:13)
[2019-08-18] MEDS: Normal Saline Flush 10 ML SYR IVP (01:13)
[2019-08-18] MEDS: Omnipaque 350 MG/ML 100 ML BTL IJ (01:14)
--- NOTE | 2019-08-18 01:36 | DI.VRAD_ITS ---
PROCEDURE INFORMATION: Exam: CT Angiography Chest With Contrast Exam date and time: 08/18/2019 12:37 AM Age: 29 years old Clinical indication: Type not specified; Patient HX: Sternal chest pain x5+/- hours, difficulty breathing, no known trauma TECHNIQUE: Imaging protocol: Computed tomographic angiography of the chest with intravenous contrast. 3D rendering: MIP and/or 3D reconstructed images were created by the technologist. Radiation optimization: All CT scans at this facility use at least one of these dose optimization techniques: automated exposure control; mA and/or kV adjustment per patient size (includes targeted exams where dose is matched to clinical indication); or iterative reconstruction. Contrast material: [id number]; Contrast volume: 75 ml; Contrast route: INTRAVENOUS (IV); COMPARISON: CR XR PORTABLE CHEST AP 08/17/2019 10:34 PM FINDINGS: Pulmonary arteries: Normal. No pulmonary emboli. Aorta: Unremarkable. No aortic aneurysm. No aortic dissection. Lungs: Atelectasis of the lung bases. Pleural space: Unremarkable. No pneumothorax. No pleural effusion. Heart: Possible small pericardial effusion versus thickening. Lymph nodes: Unremarkable. No enlarged lymph nodes. Bones/joints: Moderate degenerative change of the spine. Soft tissues: Unremarkable. IMPRESSION: 1. No pulmonary artery filling defect to suggest pulmonary embolism. 2. Possible small pericardial effusion versus thickening. Dictated and Authenticated by: Tracey Bobby MD. Ordering:DAPHNEY Borrero MD
[2019-08-18 01:42] LABS: Troponin I < 0.05 ng/mL (<0.06)
[2019-08-18 01:57] LABS: C-Reactive Protein 0.67 mg/dL (0.0-0.3)
[2019-08-18] MEDS: Colchicine 0.6 MG TAB PO (02:07)
[2019-08-18 02:31] LABS: ESR 47 mm/hr (0-20)
== END 2019-08-18 02:30 | disposition home or self-care (01) ==
PROVIDERS: Physician Assistant; Emergency Provider Emergency Medicine; PCP Nurse Practitioner Family
DX: I31.8 Other specified diseases of pericardium (principal)
CPT/HCPCS: 71275; 80053; 85652; 93005; 96374; 99285; 71045; 83735; 84443; 84484; 85025; 85379; 86140; 93010; J1885; J3490

== ENCOUNTER 2019-08-23 01:41 | Outpatient (CLI) | payer MEDICAID, SELFPAY ==
--- NOTE | 2019-08-23 08:21 | DI.US_ITS ---
APPROVED REPORT EXAM: Comprehensive 2D, Doppler, and color-flow Echocardiogram Patient Location: Out-Patient Hog Ringer: Lorenza Mays RDCS (AE) Indications: Acute pericarditis Other Information Study Quality: Good Conclusion Normal left ventricular chamber size and wall thickness. Estimated ejection fraction is 55 to 60%. There are no segmental wall motion abnormalities. Diastolic function is normal Normal right ventricular size and function Normal atrial size There are no structural valvular abnormalities Trace to mild mitral and tricuspid regurgitation. Estimated right ventricular systolic pressure is n ormal Trivial pericardial effusion Wall motion Left Ventricle The left ventricle is normal size. The left ventricular systolic function is normal. The left ventric ular ejection fraction is within the normal range. There is normal left ventricular wall thickness. T here is normal LV segmental wall motion. The left ventricular diastolic function is normal. LVEF is 5 5-60%. Right Ventricle The right ventricle is normal size. The right ventricular systolic function is normal. The RVSP is 19 .2 mmHg. Atria The left atrium size is normal. The right atrium size is normal. Aortic Valve Aortic valve is trileaflet. There is no aortic valvular stenosis. No aortic regurgitation is present. Mitral Valve The mitral valve is normal in structure. No evidence of mitral valve stenosis. Trace to mild mitral r egurgitation. Tricuspid Valve The tricuspid valve is normal in structure. There is no tricuspid valve stenosis. Trace to mild tricu spid regurgitation. Pulmonic Valve The pulmonary valve is normal in structure. There is no pulmonic valvular stenosis. There is no pulmo asad valvular regurgitation. Great Vessels The aortic root is normal in size. The ascending aorta is normal in size. IVC is normal in size and c ollapses >50% with inspiration. Pericardium Trace pericardial effusion. 2D Dimensions IVSD d PLAX 0.72 cm F: 0.6-1.0 LV Vol A2C d MOD 56.0 mL LVPW d PLAX 0.71 cm F: 0.6 - 1.0 LV Vol A4C d MOD 53.2 mL LVID d PLAX 4.01 cm F: 3.8 - 5.2 LA vol/ BSA A2C s A-L 14.1 mL/m2 LVDs 2.55 cm F: 2.2 - 3.5 LA vol/ BSA A4C s A-L 14.3 mL/m2 Ao Root d 2.24 cm F: 2.7 - 3.3 LA Vol/ BSA Biplane s A-L 15.1 mL/m2 RA Area A4C 10.54 cm2 LA Area A4C s MOD 12.53 cm2 RA Vol/ BSA A4C s A-L 12.7 mL/m2 LA Area A2C s MOD 11.67 cm2 Ao Asc Diam d 2.37 cm F: 2.3 - 3.1 LV EF A4C MOD 59.2 % LV EF Teichholz 65.8 % LV EF A2C MOD 61.6 % LVEF (Andersen's) 59.68 % F: 54 - 74 LV EF Biplane MOD 59.7 % LV Volume 43.60 mL F: 46 - 106 SV 33.50 mL LV Volume Index 24.22 mL/m2 F: 29 - 61 SV Index 18.55 mL/m2 LV Vol Biplane MOD 56.1 mL FS 35.75 % M-Mode TAPSE 1.72 cm (M/F) >1.7 LV Diastology MV E' medial 0.098 (>0.07 m/s) E/A Ratio 1.2 LV E/e MED 7.60 (<14) MV E Vmax 0.75 (0.4-1.3 m/s) MV E' lateral 0.185 (>0.1 m/s) MV A Vmax 0.65 (0.4-1.3 m/s) LV E/e LAT 4.00 (<14) MV E/A Ratio 1.09 MV E/E' medial 7.63 MV E/E' lateral 4.03 Aortic Valve LVOT Area 2.81 cm2 AoV Area Vmax 2.49 cm2 LVOT Vmax 1.23 m/s AoV Area/ BSA (Vmax) 1.38 cm2/m2 LVOT Mean Shayne. 0.76 m/s ALEX Mean Shayne. 2.17 cm2 LVOT Peak Grad 6.0 mmHg ALEX Mean Shayne. Index 1.20 cm2/m2 LVOT Mean Grad 2.8 mmHg LVOT VTI 0.222 m LVOT Diam s 1.85 cm AoV Vmax 1.39 m/s Velocity Ratio 0.88 AoV Mean Shayne. 0.98 m/s AoV Peak Grad 7.7 mmHg LVOT SV 62.27 mL AoV Mean Grad 4.2 mmHg AoV VTI 0.233 m AoV Area VTI 2.67 cm2 AoV Area/ BSA (VTI) 1.48 cm/m2 Mitral Valve MV DT 233 (160-240 msec) MV PHT 68 msec MV Area PHT 3.25 cm2 Pulmonary Valve PV Vmax 0.97 (0.5-1.5 m/s) RVOT Peak Gr. 2.95 mmHg PV Peak Grad 3.8 mmHg RVOT Mean Gr. 1.35 mmHg PV Mean Grad 1.7 mmHg RVOT VTI 0.171 m PV VTI 0.171 m RVOT Vmax 0.86 m/s Tricuspid Valve TR Peak Grad 16.2 mmHg TR Vmax 2.01 m/s RA Pressure 3.00 mmHg RVSP (TR) 19.2 mmHg
== END 2019-08-23 02:01 ==
PROVIDERS: PCP Nurse Practitioner Family; Visit Provider Nurse Practitioner Family
DX: I30.9 Acute pericarditis, unspecified (principal); I31.3 Pericardial effusion (noninflammatory); I34.0 Nonrheumatic mitral (valve) insufficiency; R42 Dizziness and giddiness
CPT/HCPCS: 93306

== ENCOUNTER 2019-08-24 15:25 | Outpatient (CLI) | payer MEDICAID, SELFPAY ==
--- NOTE | 2019-08-24 15:15 | RT.EKG_ITS ---
APPROVED REPORT Exam: Resting ECG Patient Location: O HR:76 bpm ECG Measurements Heart Rate 76 AXIS MA 141 P -3 QRSd 68 QRS 58 QT 359 T 64 QTc 405 <Conclusion> Sinus rhythm...normal P axis, V-rate 60- 99
== END 2019-08-24 15:45 ==
PROVIDERS: PCP Nurse Practitioner Family; Visit Provider Nurse Practitioner Family
DX: I31.9 Disease of pericardium, unspecified (principal)

== ENCOUNTER 2019-08-28 07:47 | Outpatient (CLI) | payer MEDICAID, SELFPAY ==
[2019-09-02 06:52] LABS: SARS-CoV-2 RNA Undetected (Undetected); SARS-CoV-2 Specimen Source Nasopharynx
== END 2019-08-28 08:07 ==
PROVIDERS: PCP Nurse Practitioner Family; Visit Provider Nurse Practitioner Family
DX: Z11.59 Encounter for screening for other viral diseases (principal)
CPT/HCPCS: U0003

== ENCOUNTER 2019-09-05 03:13 | Outpatient (CLI) | payer MEDICAID, SELFPAY ==
[2019-09-05 10:30] LABS: ESR 34 mm/hr (0-20)
[2019-09-05 16:29] LABS: CRP, High Sensitivity 2.24 mg/L (See Note); Rheumatoid Factor <8.6 IU/mL (<12.0)
[2019-09-06 15:06] LABS: ANA Interpretation Negative (Negative)
== END 2019-09-05 03:33 ==
PROVIDERS: PCP Nurse Practitioner Family; Visit Provider Nurse Practitioner Family
DX: I30.9 Acute pericarditis, unspecified (principal); Z00.00 Encounter for general adult medical examination without abnormal findings
CPT/HCPCS: 36415; 85652; 86141; 86900; 86901; 86038; 86431

== ENCOUNTER 2019-11-17 17:42 | Outpatient (REF) | payer MEDICAID, SELFPAY ==
--- NOTE | 2019-11-17 13:30 | PAPFT_PTH ---
PATIENT: Amina Jones LOC: [facility] U#:[id number] AGE/SX: 29/F ROOM: RE11/17/[address]: BISI Da Silva : 1990 BED: DIS: 11/17/2019 SPEC #: [id number] RECD: 11/20/19 13:10 STATUS: FELICIA FUNG #: [id number] RODRIGO: 11/17/19 13:[address]: Nuzhat Garcia DEPT: [facility] Cytology RECD BY: Cristina Hernandez Tissues: 1 - CX/ENDOCX FOR PAP SMEARS Procedures: PAP THIN PREP/UVM Screening HPV DNA PROBE Comments: [id number]
[2019-11-17 21:52] LABS: ESR 41 mm/hr (0-20)
[2019-11-19 16:41] LABS: CRP, High Sensitivity 5.73 mg/L (See Note)
[2019-11-20 08:45] LABS: Abs Immature Grans 0.03 10^3/uL (0.0-0.06); Absolute Basophil Count 0.07 10^3/uL (0.0-0.2); Absolute Eosinophil Count 0.27 10^3/uL (0.0-0.7); Absolute Monocyte Count 0.38 10^3/uL (0.1-0.8); Absolute Neutrophil Count 3.64 10^3/uL (1.2-6.7); HCT 38.4 % (36.0-46.0); HGB 12.5 g/dL (11.2-15.7); Immature Grans % 0.4; Lymphocytes % 35.3; MCH 28.5 pg (27.0-33.0); MCHC 32.6 % (32.0-36.0); MCV 87.5 fL (80-95); MPV 10.8 fL (8.0-11.0); Monocytes % 5.6; Neutrophils % 53.7; Nucleated RBC 0 %; Platelet Count 323 10^3/uL (130-400); RBC 4.39 10^6/uL (3.93-5.22); RDW 13.2 % (11.7-14.6); WBC 6.79 10^3/uL (4.4-10.8)
== END 2019-11-17 18:02 ==
LOC: LBN 17:42
PROVIDERS: PCP Nurse Practitioner Family; Visit Provider Nurse Practitioner Family
DX: I31.9 Disease of pericardium, unspecified (principal); Z12.4 Encounter for screening for malignant neoplasm of cervix
CPT/HCPCS: 85652; 86141; 88142; 85025; 87624

== ENCOUNTER 2020-03-26 08:22 | Emergency (ER) | payer MEDICAID, SELFPAY ==
[2020-03-26] VITALS (33 sets, daily range): BP systolic 102–118; BP diastolic 66–74; PULSE 64–89; RESP 12–24; TEMP 36.8; O2SAT 97–100
--- NOTE | 2020-03-26 08:15 | RT.EKG_ITS ---
APPROVED REPORT Exam: Resting ECG Patient Location: E HR:75 bpm ECG Measurements Heart Rate 75 AXIS WV 151 P -3 QRSd 74 QRS 54 QT 354 T 58 QTc 395 Conclusion Sinus rhythm...normal P axis, V-rate 60- 99 No STEMI. I have reviewed and interpreted ECG and agree with software generated interpretation.
--- NOTE | 2020-03-26 08:26 | W.ED.GENAD ---
Discharge Plan Disposition Patient Disposition: HOME Condition: Stable Discharge Details Clinical Impression: Chest wall pain Primary Care Provider: Nuzhat Garcia ED Provider: Cathy Roman Home Meds and New Rx's Prescriptions: New clindamycin HCl 150 mg capsule 450 mg PO TID 7 Days Qty: 63 RF: 0 ibuprofen 600 mg tablet 600 mg PO Q6H PRN (Reason: pain) Qty: 20 RF: 0 Continued lidocaine 4 % adhesive patch,medicated 1 patch topical DAILY PRN (Reason: pain) Qty: 30 RF: 4 Discharge Instructions Instructions: Chest Wall Pain (ED) Additional Instructions: Alternate ice and heat to the affected area(s) several times daily for 20 minutes at a time. Take the ibuprofen 600 mg every 6 hours for the next 2 days. You can try [id number] Lidoderm patches as needed and directed for pain. Call your primary care doctor today to schedule a follow-up appointment for reevaluation this week for result of your ESR blood test and for reevaluation. Return immediately to the emergency department if you develop any worsening or new concerning symptoms. Discharge Data Discharge Date/Time-TO BE ENTERED AT DEPARTURE: 03/26/20 13:51 Discharge Physician: Cathy Roman Medical Decision Making 0830 -- 29-year-old female with a history of pericarditis in August 2019 treated with indomethacin and colchicine, BPPV, hyperlipidemia presents for right-sided sharp chest pain which has now progressed to entire anterior chest pressure since yesterday. EKG on arrival notes a rate of 75, sinus, no STEMI, nondiagnostic. Upon review of records, patient was diagnosed with acute pericarditis on a second EKG while here in the ED after MI depression noted, and 2 negative troponins at that time. Patient had an echocardiogram on August 24, 2019 which noted Conclusion Normal left ventricular chamber size and wall thickness. Estimated ejection fraction is 55 to 60%. There are no segmental wall motion abnormalities. Diastolic function is normal Normal right ventricular size and function Normal atrial size There are no structural valvular abnormalities Trace to mild mitral and tricuspid regurgitation. Estimated right ventricular systolic pressure is normal Trivial pericardial effusion Patient vitals are within normal limits. She appears comfortable and nontoxic. She has reproducible anterior chest pain to palpation and with deep breaths. Differential diagnosis includes musculoskeletal pain, pericarditis, PE, etc. We will check screening labs, CT chest, give a dose of Toradol and Lidoderm patch and reassess. 1000 -- Delay in patient going to CT due to awaiting urine test and delay in radiology. Patient reassessed and her pain has not changed. She is declining additional pain medication at this time. 1230 -- CT chest negative. Repeat troponin negative. EKG notes a rate of 71, sinus, questionable MI depression in 1 but this appears similar to previous EKGs and not acute. No STEMI. Patient reassessed and denies any change in pain. She was offered additional pain medication but declined. Patient drove herself to the ED. Discussed with patient that with 2 negative troponins and 2 EKGs that do not appear obviously consistent with STEMI or pericarditis, do not see an indication for admission at this time and patient is agreeable. Advised that she could be in the early stages of a developing process and to be aware of any change or worsening of her condition and to return immediately. We will send home with a prescription for ibuprofen to take every 6 hours over the next few days. Advised to follow up with the primary care doctor for re-evaluation. Usual and customary return precautions given prior to discharge. Medical Records Medical records reviewed: Yes I reviewed the patient's medical records. Imaging Data Radiologic Study: Radiologist's impression: CT CHEST PE CTA CLINICAL HISTORY: pleuritic chest pain, r/o PE. TECHNIQUE: Imaging Protocol: Axial CT angiography was performed with multi-slice acquisition and multi-planar and/or 3D reconstructions. CONTRAST MATERIAL: Intravenous: Omnipaque 350 Contrast volume:100 mL COMPARISON: CT CT CHEST PE CTA from 08/18/2019 FINDINGS: Tracheobronchial tree: Patent where visualized. Pulmonary parenchyma: No consolidation or dominant measurable mass. No architectural distortion. Pulmonary Arteries: No evidence of filling defect to suggest pulmonary emboli. Mediastinum and Marii: No dominant adenopathy or fluid collection. Visualized thyroid gland: Unremarkable. Pleura: No effusion or pneumothorax. Heart: The heart is not dilated. No coronary artery calcifications are seen. No pericardial effusion. Aorta: Thoracic aorta non-dilated. No evidence of dissection. Upper abdomen: Unremarkable. Soft tissues: Unremarkable. Bones: Normal. IMPRESSION: No evidence of pulmonary embolism, thoracic aortic dissection or aneurysm. Results of this exam have been verbally communicated with provider. Lab Data Lab results reviewed: Yes I reviewed the patient's lab results. Labs: Laboratory Tests Range/Units 02/09/21 02/09/21 02/09/21 08:30 08:30 08:30 WBC (4.4-10.8) 10^3/uL 5.70 RBC (3.93-5.22) 10^6/uL 4.53 Hgb (11.2-15.7) g/dL 12.7 Hct (36.0-46.0) % 39.4 MCV (80-95) fL 87.0 MCH (27.0-33.0) pg 28.0 MCHC (32.0-36.0) % 32.2 RDW (11.7-14.6) % 13.8 Plt Count (130-400) 10^3/uL 309 MPV (8.0-11.0) fL 9.6 Immature Gran % 0.4 Neutrophils % 54.6 Lymphocytes % 32.8 Monocytes % 6.1 Eosinophils % 5.6 Basophils % 0.5 Nucleated RBC % % 0 Absolute Neutrophils (1.2-6.7) 10^3/uL 3.11 Absolute Lymphocytes (1.2-3.4) 10^3/uL 1.87 Absolute Monocytes (0.1-0.8) 10^3/uL 0.35 Absolute Eosinophils (0.0-0.7) 10^3/uL 0.32 Absolute Basophils (0.0-0.2) 10^3/uL 0.03 ESR (<or=20) mm/hr PT (9.3-11.0) sec 10.4 INR (0.9-1.1) 1.0 APTT (21.0-27.5) sec 26.3 D-Dimer (<500) ng/mlFEU Sodium (136-145) mmol/L 139 Potassium (3.5-5.1) mmol/L 3.9 Chloride (98-107) mmol/L 105 Carbon Dioxide (21.0-32.0) mmol/L 25.1 Anion Gap (3-11) mmol/L 8.9 BUN (7-18) mg/dL 12 Creatinine (0.55-1.02) mg/dL 0.8 Estimated GFR/1.73 m2 (mL/min/1.73m2) >= 60.00 Glucose (74-106) mg/dL 91 Calcium (8.5-10.1) mg/dL 8.8 Magnesium (1.8-2.4) mg/dL 2.2 Total Bilirubin (0.2-1.0) mg/dL 0.7 AST (15-37) U/L 16 ALT (14-59) U/L 28 Alkaline Phosphatase (46-116) U/L 93 Troponin I (<0.06) ng/mL < 0.05 C-Reactive Protein (0.0-0.3) mg/dL Total Protein (6.4-8.2) g/dL 7.5 Albumin (3.4-5.0) g/dL 3.5 Range/Units 03/26/20 03/26/20 03/26/20 08:30 08:30 08:30 WBC (4.4-10.8) 10^3/uL RBC (3.93-5.22) 10^6/uL Hgb (11.2-15.7) g/dL Hct (36.0-46.0) % MCV (80-95) fL MCH (27.0-33.0) pg MCHC (32.0-36.0) % RDW (11.7-14.6) % Plt Count (130-400) 10^3/uL MPV (8.0-11.0) fL Immature Gran % Neutrophils % Lymphocytes % Monocytes % Eosinophils % Basophils % Nucleated RBC % % Absolute Neutrophils (1.2-6.7) 10^3/uL Absolute Lymphocytes (1.2-3.4) 10^3/uL Absolute Monocytes (0.1-0.8) 10^3/uL Absolute Eosinophils (0.0-0.7) 10^3/uL Absolute Basophils (0.0-0.2) 10^3/uL ESR (<or=20) mm/hr 58 PT (9.3-11.0) sec INR (0.9-1.1) APTT (21.0-27.5) sec D-Dimer (<500) ng/mlFEU 555 H Sodium (136-145) mmol/L Potassium (3.5-5.1) mmol/L Chloride (98-107) mmol/L Carbon Dioxide (21.0-32.0) mmol/L Anion Gap (3-11) mmol/L BUN (7-18) mg/dL Creatinine (0.55-1.02) mg/dL Estimated GFR/1.73 m2 (mL/min/1.73m2) Glucose (74-106) mg/dL Calcium (8.5-10.1) mg/dL Magnesium (1.8-2.4) mg/dL Total Bilirubin (0.2-1.0) mg/dL AST (15-37) U/L ALT (14-59) U/L Alkaline Phosphatase (46-116) U/L Troponin I (<0.06) ng/mL C-Reactive Protein (0.0-0.3) mg/dL 0.43 H Total Protein (6.4-8.2) g/dL Albumin (3.4-5.0) g/dL Range/Units 03/26/20 12:10 WBC (4.4-10.8) 10^3/uL RBC (3.93-5.22) 10^6/uL Hgb (11.2-15.7) g/dL Hct (36.0-46.0) % MCV (80-95) fL MCH (27.0-33.0) pg MCHC (32.0-36.0) % RDW (11.7-14.6) % Plt Count (130-400) 10^3/uL MPV (8.0-11.0) fL Immature Gran % Neutrophils % Lymphocytes % Monocytes % Eosinophils % Basophils % Nucleated RBC % % Absolute Neutrophils (1.2-6.7) 10^3/uL Absolute Lymphocytes (1.2-3.4) 10^3/uL Absolute Monocytes (0.1-0.8) 10^3/uL Absolute Eosinophils (0.0-0.7) 10^3/uL Absolute Basophils (0.0-0.2) 10^3/uL ESR (<or=20) mm/hr PT (9.3-11.0) sec INR (0.9-1.1) APTT (21.0-27.5) sec D-Dimer (<500) ng/mlFEU Sodium (136-145) mmol/L Potassium (3.5-5.1) mmol/L Chloride (98-107) mmol/L Carbon Dioxide (21.0-32.0) mmol/L Anion Gap (3-11) mmol/L BUN (7-18) mg/dL Creatinine (0.55-1.02) mg/dL Estimated GFR/1.73 m2 (mL/min/1.73m2) Glucose (74-106) mg/dL Calcium (8.5-10.1) mg/dL Magnesium (1.8-2.4) mg/dL Total Bilirubin (0.2-1.0) mg/dL AST (15-37) U/L ALT (14-59) U/L Alkaline Phosphatase (46-116) U/L Troponin I (<0.06) ng/mL < 0.05 C-Reactive Protein (0.0-0.3) mg/dL Total Protein (6.4-8.2) g/dL Albumin (3.4-5.0) g/dL ECG Data Attestation: I personally reviewed and interpreted this ECG (s) as follows: Interpretation: #1 -- Rate of 75, sinus, no acute ST elevation or depression. MI 151. QRS 74. QTc 395. #2 -- Rate of 71, sinus, No STEMI, MI 158, QRS 77, QTc 395. There is very minimal MI depression noted in lead I which is seen in first and second EKG but this is questionable at best and is not diffuse. There is no STEMI. HPI General Mode of arrival: ambulatory. Date/Time Provider Initiated Documentation: 03/26/20 08:26. Limitations to Documentation: no limitations. Information obtained by: patient. HPI Narrative: Patient is a 29-year-old female with a history of pericarditis in August 2019 who presents with chest pain since yesterday. Patient states the pain is constant pressure and intermittent sharp pain that is worse with deep breaths and leaning forward. Patient's chest pain in August 2019 when she was diagnosed with pericarditis was on the left side of her chest and sharp. She states since yesterday the pain started while she was sitting down and started on the right side of her chest and since then has progressed to her entire chest. She states the pain is a constant 8 and increases to 10 with deep breaths and when leaning forward. 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 She has not taken any medication for her pain. Patient denies any fever, cough, shortness of breath, nausea, vomiting, dizziness, leg pain or swelling, recent travel, recent sick contacts or recent surgeries. Patient was treated with Indocin and colchicine after her diagnosis of pericarditis in August which she states she finished completely with near relief. She states since August she has had intermittent episodes of left-sided chest pain that occur every few weeks that are sharp and lasting a few seconds occurring at random. Related Data Home Medications Medication Instructions Recorded Confirmed lidocaine 4 % topical patch 1 patch TOPICAL DAILY PRN #30 ea 11/17/19 03/26/20 clindamycin HCl 450 mg PO TID 7 Days #63 cap 03/26/20 ibuprofen 600 mg PO Q6H PRN #20 tab 03/26/20 Previous Rx's Medication Instructions Recorded lidocaine 4 % topical patch 1 patch TOPICAL DAILY PRN #30 ea 11/17/19 clindamycin HCl 450 mg PO TID 7 Days #63 cap 03/26/20 ibuprofen 600 mg PO Q6H PRN #20 tab 03/26/20 Allergies Allergy/AdvReac Type Severity Reaction Status Date / Time Sulfa (Sulfonamide Allergy Unknown Verified 03/26/20 08:33 Antibiotics) naproxen AdvReac Unknown GI UPSET Verified 03/26/20 08:33 General BONNIE: 2 Review of Systems All systems reviewed & are unremarkable except as noted in HPI and below Constitutional Constitutional: Reports as per HPI, Denies chills and Denies fever(s) Eyes Eyes: Denies blurry vision ENT Ears, Nose, Mouth, and Throat: Denies dizziness, Denies sore throat and Denies throat swelling Cardiovascular Cardiovascular: Reports chest pain and Denies dyspnea Respiratory Respiratory: Denies cough and Denies dyspnea Gastrointestinal Gastrointestinal: Denies abdominal pain, Denies diarrhea and Denies vomiting Genitourinary Genitourinary: Denies hematuria and Denies dysuria Musculoskeletal Musculoskeletal: Denies back pain and Denies numbness Integumentary/Breasts Skin/Breast: Denies lesions and Denies rash Neurologic Neurologic: Denies dizziness, Denies localized weakness and Denies numbness Allergic/Immunologic Allergic/Immunologic: Denies throat swelling [facility] Medical History (Updated 03/26/20 @ 13:32 by Cathy Roman DO) BPPV (benign paroxysmal positional vertigo) Depressive disorder Hyperlipidemia Migraine headache with aura Pericarditis TMJ (temporomandibular joint disorder) Surgical History H/O left knee surgery (~2005) Torn Meniscus Repair H/O tubal ligation (09/30/15) History of section (~2012) 2012 and 2016 Family History Mother Diabetes Depression Hyperlipidemia Hypothyroidism Father Diabetes Hyperlipidemia Sister Hyperlipidemia Son ADHD Daughter No problems noted. Daughter No problems noted. Maternal Grandfather , at 82 of kidney failure COPD (chronic obstructive pulmonary disease) Heart disease Chronic kidney disease Diabetes Depression Maternal Grandmother , at 62 of colon cancer Colon cancer Paternal Grandfather , in his 60s of [place] Heart disease Myocardial infarction Paternal Grandmother , in her 70s of metastatic bone cancer Metastatic bone cancer Breast cancer Social History Smoking/Tobacco Use Status: Never Smoking risk assessment performed?: Yes Alcohol Intake: current Alcohol Intake frequency: a few times a month Drug use: Never Substance use type: does not use Household members: other Details: 4 current occupation: Cook Pets and animals: Yes Pets and animals: cat(s) Frequency: 3-4 times per week Special matilda needs: No Do you feel safe at home: Yes Do you feel safe in your relationship?: Yes History History 3 Para 3 Hx # Term Pregnancies Multiple births Hx # Pregnancies Ectopic pregnancies AB induced Hx Number of Living Children 3 AB spontaneous Exam Const General: cooperative, healthy appearing and no acute distress HENDE Head: normal to inspection Face and sinus: normal facial exam Eyes General: appearance normal, both eyes and all related structures EOM: EOM intact bilaterally Neck Neck: normal visual inspection and No submandibular swelling Lymphatic: no lymphadenopathy noted Chest Chest: normal inspection of the chest, no crepitus, tenderness (entire anterior chest) and No rash Resp Effort & Inspection: normal respiratory effort and able to speak in complete sentences Auscultation: clear to auscultation bilaterally Cardio Rate: regular rate Rhythm: regular rhythm GI Inspection: normal to inspection Palpation: soft, not firm, not rigid and nontender Auscultation: normal bowel sounds Back/Spine/Pelvis Thoracic/Lumbar Spine: thoracic and lumbar spine normal to inspection Skin General skin exam: no rashes or lesions noted Neuro General: patient alert, patient awake and patient oriented x3 Cognition: normal cognition Speech: speech normal Motor: muscle tone normal throughout Sensory Exam: no sensory deficits noted Extrem General: normal to inspection, full ROM, capillary refill normal, no calf tenderness bilaterally and no edema Psych Appearance: grossly normal Mental Status: mental status grossly normal Speech and Movement: speech and movement normal Affect: normal affect
[2020-03-26 08:43] LABS: Abs Immature Grans 0.02 10^3/uL (0.0-0.06); Absolute Basophil Count 0.03 10^3/uL (0.0-0.2); Absolute Eosinophil Count 0.32 10^3/uL (0.0-0.7); Absolute Lymphocyte Count 1.87 10^3/uL (1.2-3.4); Absolute Monocyte Count 0.35 10^3/uL (0.1-0.8); Absolute Neutrophil Count 3.11 10^3/uL (1.2-6.7); Basophils % 0.5; Eosinophils % 5.6; HCT 39.4 % (36.0-46.0); HGB 12.7 g/dL (11.2-15.7); Immature Grans % 0.4; Lymphocytes % 32.8; MCHC 32.2 % (32.0-36.0); MPV 9.6 fL (8.0-11.0); Monocytes % 6.1; Neutrophils % 54.6; Nucleated RBC 0 %; Platelet Count 309 10^3/uL (130-400); RBC 4.53 10^6/uL (3.93-5.22); RDW 13.8 % (11.7-14.6); RDW-SD 43.9 fL
--- NOTE | 2020-03-26 08:45 | DI.CT_ITS ---
EXAM: CT CHEST PE CTA CLINICAL HISTORY: pleuritic chest pain, r/o PE. TECHNIQUE: Imaging Protocol: Axial CT angiography was performed with multi-slice acquisition and mu lti-planar and/or 3D reconstructions. CONTRAST MATERIAL: Intravenous: Omnipaque 350 Contrast volume:100 mL COMPARISON: CT CT CHEST PE CTA from 08/18/2019 FINDINGS: Tracheobronchial tree: Patent where visualized. Pulmonary parenchyma: No consolidation or dominant measurable mass. No architectural distortion. Pulmonary Arteries: No evidence of filling defect to suggest pulmonary emboli. Mediastinum and Marii: No dominant adenopathy or fluid collection. Visualized thyroid gland: Unremarkable. Pleura: No effusion or pneumothorax. Heart: The heart is not dilated. No coronary artery calcifications are seen. No pericardial effusion. Aorta: Thoracic aorta non-dilated. No evidence of dissection. Upper abdomen: Unremarkable. Soft tissues: Unremarkable. Bones: Normal. IMPRESSION: No evidence of pulmonary embolism, thoracic aortic dissection or aneurysm. Results of this exam have been verbally communicated with provider. RADIATION DOSE DELIVERED: Total DLP DATA REPOSITORY: All CT scans at this facility are submitted to the National Radiology Data Registry (NRDR) Dose Index Registry (DIR) with the [employer] (ACR). RADIATION OPTIMIZATION: All CT scans at this facility use at least one of these dose optimization te chniques: automated exposure control; mA and/or kV adjustment per patient size (includes targeted exa ms where dose is matched to clinical indication); or iterative reconstruction.
[2020-03-26 08:57] LABS: C-Reactive Protein 0.43 mg/dL (0.0-0.3)
[2020-03-26 09:01] LABS: ALT 28 U/L (14-59); AST 16 U/L (15-37); Albumin 3.5 g/dL (3.4-5.0); Alkaline Phosphatase 93 U/L (46-116); Anion Gap 8.9 mmol/L (3-11); BUN 12 mg/dL (7-18); Bilirubin, Total 0.7 mg/dL (0.2-1.0); CO2 25.1 mmol/L (21.0-32.0); CREATININE 0.8 mg/dL (0.55-1.02); Calcium 8.8 mg/dL (8.5-10.1); Chloride 105 mmol/L (98-107); Glucose 91 mg/dL (74-106); Magnesium 2.2 mg/dL (1.8-2.4); PTT Activated 26.3 sec (21.0-27.5); Potassium 3.9 mmol/L (3.5-5.1); Prothrombin Time 10.4 sec (9.3-11.0); Sodium 139 mmol/L (136-145); Total Protein 7.5 g/dL (6.4-8.2); Troponin I < 0.05 ng/mL (<0.06)
[2020-03-26 09:12] LABS: D-Dimer 555 ng/mlFEU (<500)
[2020-03-26] MEDS: Lidocaine 5% Patch 1 PATCH TP (09:19)
[2020-03-26] MEDS: Ketorolac 30 MG/ML VIAL IVP (09:19)
[2020-03-26] MEDS: Normal Saline 1,000 ML 1000 ML IV (09:20)
[2020-03-26] MEDS: Omnipaque 350 MG/ML 100 ML BTL IJ (11:13)
[2020-03-26] MEDS: Normal Saline Flush 10 ML SYR IVP (11:16)
[2020-03-26] MEDS: Normal Saline - Diluent 50 ML VIAL IV (11:16)
--- NOTE | 2020-03-26 11:45 | RT.EKG_ITS ---
APPROVED REPORT Exam: Resting ECG Patient Location: E HR:71 bpm ECG Measurements Heart Rate 71 AXIS ME 158 P -25 QRSd 77 QRS 40 QT 365 T 45 QTc 395 Conclusion Sinus rhythm...normal P axis, V-rate 60- 99 Low voltage, precordial leads...precordial leads <1.0mV. No STEMI. I have reviewed and interpreted ECG and agree with software generated interpretation.
[2020-03-26 12:44] LABS: Troponin I < 0.05 ng/mL (<0.06)
[2020-03-26 15:57] LABS: ESR 58 mm/hr (<or=20)
== END 2020-03-26 13:51 | disposition home or self-care (01) ==
PROVIDERS: Emergency Provider Physician Assistant; PCP Nurse Practitioner Family
DX: R07.81 Pleurodynia (principal)
CPT/HCPCS: 36415; 71275; 80053; 81025; 85652; 93005; 96361; 96374; 99285; 83735; 84484; 85025; 85379; 85610; 85730; 86140; 93010; J1885; J3490

== ENCOUNTER 2020-04-01 08:12 | Outpatient (CLI) | payer MEDICAID, SELFPAY ==
--- NOTE | 2020-04-01 08:15 | RT.EKG_ITS ---
APPROVED REPORT Exam: Resting ECG Patient Location: O HR:71 bpm ECG Measurements Heart Rate 71 AXIS MT 156 P -23 QRSd 81 QRS 55 QT 371 T 59 QTc 404 Conclusion Sinus rhythm...normal P axis, V-rate 60- 99
== END 2020-04-01 08:13 | disposition home or self-care (01) ==
PROVIDERS: PCP Nurse Practitioner Family; Visit Provider Nurse Practitioner Family
DX: R07.89 Other chest pain (principal)
CPT/HCPCS: 93010

== ENCOUNTER 2020-04-01 08:35 | Outpatient (CLI) | payer MEDICAID, SELFPAY ==
[2020-04-01 15:54] LABS: ESR 40 mm/hr (<or=20)
[2020-04-01 17:30] LABS: CRP, High Sensitivity 2.93 mg/L (See Note)
[2020-04-02 10:51] LABS: Albumin 57.7 % (55.8-66.1); Total Protein 6.7 g/dL (6.3-8.2)
[2020-04-02 11:17] LABS: dsDNA Ab, IgG <12.3 IU/mL (<30.0)
[2020-04-02 15:49] LABS: ANA Interpretation Negative (Negative)
[2020-04-03 15:54] LABS: Phospholipid Ab, IgG <9.4 GPL; Phospholipid Ab, IgM <9.4 MPL
== END 2020-04-01 08:36 | disposition home or self-care (01) ==
LOC: LOS 08:35
PROVIDERS: PCP Nurse Practitioner Family; Referring Provider Nurse Practitioner Family; Visit Provider Nurse Practitioner Family
DX: R07.89 Other chest pain (principal); Z86.79 Personal history of other diseases of the circulatory system; I31.8 Other specified diseases of pericardium
CPT/HCPCS: 36415; 85652; 86141; 86147; 84165; 86038; 86225

== ENCOUNTER 2020-04-26 02:46 | Outpatient (CLI) | payer MEDICAID, SELFPAY ==
[2020-04-26 16:19] LABS: Bilirubin Negative (Negative); Blood Negative (Negative); Clarity Cloudy (Clear); Glucose Negative (Negative); Ketones Negative (Negative); Leukocyte Esterase Trace (Negative); Nitrite Negative (Negative); Specific Gravity 1.025 (1.005-1.025); Urobilinogen 0.2 EU/dL (Up TO 0.2); pH 5.5 (5-8)
[2020-04-26 16:31] LABS: Bacteria Negative HPF (Negative); C & S Indicated? No/Sq. Contamination; Casts Negative LPF (Negative); Crystals Negative HPF (Negative); Epithelial Cells Moderate HPF (Negative); Mucus Negative (Negative); Other Cells Negative (Negative); RBC 0-2 HPF (0-2)
[2020-04-26 16:59] LABS: C-Reactive Protein 0.13 mg/dL (0.0-0.3)
[2020-04-27 10:06] LABS: ESR 18 mm/hr (<or=20)
== END 2020-04-26 02:47 | disposition home or self-care (01) ==
LOC: LBO 02:46
PROVIDERS: PCP Nurse Practitioner Family; Visit Provider Nurse Practitioner Family
DX: I31.8 Other specified diseases of pericardium (principal); Z86.79 Personal history of other diseases of the circulatory system; R82.998 Other abnormal findings in urine
CPT/HCPCS: 36415; 85652; 81003; 81015; 86140

== ENCOUNTER 2020-06-26 02:19 | Outpatient (CLI) | payer MEDICAID, SELFPAY ==
--- NOTE | 2020-06-26 08:15 | DI.US_ITS ---
Exam(s) US PELVIS TRANSVAGINAL EXAM: US PELVIS TRANSVAGINAL CLINICAL HISTORY: LLQ pain x 4yrs, hx of ovarian cysts,R10.32 TECHNIQUE: Ultrasound of the pelvis was performed both transabdominal and transvaginal. COMPARISON: None FINDINGS: UTERUS: Nongravid and anteverted Measures 8.3 cm length x 4.4 cm AP x 5.5 cm wide. There are no uterine fibroids. Endometrial thickness measures 7 mm. There is no fluid in the endometrial canal. CERVIX: Small nabothian cyst noted RIGHT OVARY: Measures 2 x 1.4 x 3 cm Arterial flow demonstrated. Small subcentimeter follicular cysts noted. No solid masses. LEFT OVARY: Measures 2.7 x 1.8 x 2.7 cm Arterial flow demonstrated. In addition to small subcentimeter follicular cysts there is a 1.7 x 1.4 cm partially septated cyst in left ovary CUL-DE-SAC: No free fluid evident. IMPRESSION: 1. Normal appearing uterus and age-appropriate endometrium. 2. Dominant septated follicular cyst in left ovary measuring 17 x 14 millimeters. No solid masses in the ovaries. 3. No free fluid evident in the adnexal regions and cul-de-sac. DATA REPOSITORY:
== END 2020-06-26 02:39 ==
PROVIDERS: PCP Nurse Practitioner Family; Visit Provider Nurse Practitioner Family
DX: R10.32 Left lower quadrant pain (principal); N83.01 Follicular cyst of right ovary; N83.292 Other ovarian cyst, left side
CPT/HCPCS: 76830; 76856

== ENCOUNTER 2020-08-07 01:31 | Outpatient (CLI) | payer MEDICAID, SELFPAY ==
--- NOTE | 2020-08-07 07:00 | DI.US_ITS ---
Exam(s) US SOFT TISS ABD WALL/LOW BACK EXAM: US SOFT TISS ABD WALL/LOW BACK CLINICAL HISTORY: suspect hernia at left aspect of C/S scar,abd wall pain,r10.9,i31.9. TECHNIQUE: Ultrasound was performed using standard protocol. COMPARISON: No exams were available for comparison FINDINGS: Sonographic assessment utilizing grayscale and color Doppler imaging was performed and targeted to th e area of clinical concern. Images reveal a finding which is probably fat containing anterior abdominal wall hernia located proxi mal to inches lateral left of this patient's is therein section scar. This apparently does not ortiz e with Valsalva maneuver. This measures approximately 1.5 x 1.0 cm. IMPRESSION: As above. Differential diagnosis is between fat containing hernia and hematoma/abscess for this find ing. Cannot completely exclude neoplasm. Correlation with clinical findings recommended. Consider follow-up CT scan. DATA REPOSITORY:
== END 2020-08-07 01:51 ==
PROVIDERS: PCP Nurse Practitioner Family; Visit Provider Obstetrics & Gynecology
DX: R10.9 Unspecified abdominal pain (principal); I31.9 Disease of pericardium, unspecified; L90.5 Scar conditions and fibrosis of skin
CPT/HCPCS: 76705

== ENCOUNTER 2020-08-09 02:50 | Outpatient (CLI) | payer MEDICAID, SELFPAY ==
[2020-08-09 09:38] LABS: ESR 42 mm/hr (0-20)
[2020-08-09 09:57] LABS: C-Reactive Protein 0.57 mg/dL (0.0-0.3)
== END 2020-08-09 02:51 | disposition home or self-care (01) ==
LOC: LBO 02:51
PROVIDERS: PCP Nurse Practitioner Family; Visit Provider Internal Medicine
DX: I30.8 Other forms of acute pericarditis (principal)
CPT/HCPCS: 36415; 85652; 86140

== ENCOUNTER 2020-08-27 14:29 | Outpatient (REF) | payer MEDICAID, SELFPAY | END 2020-08-27 14:30 | disposition home or self-care (01) | LOC: LBN 14:29 | PROVIDERS: PCP Nurse Practitioner Family | DX: R10.32 Left lower quadrant pain (principal) | CPT/HCPCS: 87077; 87086; 87186 ==

== ENCOUNTER 2020-08-27 14:43 | Outpatient (CLI) | payer MEDICAID, SELFPAY ==
--- NOTE | 2020-08-27 12:15 | DI.US_ITS ---
Exam(s) US RENAL EXAM: US RENAL CLINICAL HISTORY: ? renal stone R10.9 ABD PAIN, LT FLANK PAIN. TECHNIQUE: Dos Santos scale, color and spectral Doppler were used. COMPARISON: CT CT CHEST PE CTA from 03/26/[address] CHEST PE CTA from 03/26/2020 FINDINGS: Renal size in cm: Right: 10.7 left: 10.4 Echogenicity: Normal Hydronephrosis: No Cyst or mass: No Nephrolithiasis: No Bladder:Normal Prevoid vol:286 cc Postvoid vol:12 cc Both ureteral jets were visualized. IMPRESSION: Negative renal ultrasound. DATA REPOSITORY:
== END 2020-08-27 15:03 ==
PROVIDERS: PCP Nurse Practitioner Family
DX: R10.9 Unspecified abdominal pain (principal)
CPT/HCPCS: 76770

== ENCOUNTER 2020-08-28 03:53 | Outpatient (CLI) | payer MEDICAID, SELFPAY ==
[2020-08-28 13:25] LABS: Abs Immature Grans 0.06 10^3/uL (0.0-0.06); Absolute Basophil Count 0.03 10^3/uL (0.0-0.2); Absolute Eosinophil Count 0.25 10^3/uL (0.0-0.7); Absolute Monocyte Count 0.56 10^3/uL (0.1-0.8); Absolute Neutrophil Count 6.66 10^3/uL (1.2-6.7); Basophils % 0.3; Eosinophils % 2.4; HCT 37.6 % (36.0-46.0); HGB 12.2 g/dL (11.2-15.7); Immature Grans % 0.6; Lymphocytes % 28.4; MCHC 32.4 % (32.0-36.0); MCV 86.4 fL (80-95); MPV 9.6 fL (8.0-11.0); Monocytes % 5.3; Nucleated RBC 0 %; Platelet Count 332 10^3/uL (130-400); RBC 4.35 10^6/uL (3.93-5.22); RDW 14.1 % (11.7-14.6); RDW-SD 44.8 fL; WBC 10.56 10^3/uL (4.4-10.8)
[2020-08-28 14:29] LABS: ALT 22 U/L (14-59); AST 18 U/L (15-37); Albumin 3.4 g/dL (3.4-5.0); Alkaline Phosphatase 104 U/L (46-116); Anion Gap 9.3 mmol/L (3-11); BUN 10 mg/dL (7-18); Bilirubin, Total 0.4 mg/dL (0.2-1.0); CO2 25.7 mmol/L (21.0-32.0); CREATININE 0.9 mg/dL (0.55-1.02); Calcium 8.8 mg/dL (8.5-10.1); Chloride 105 mmol/L (98-107); Glucose 105 mg/dL (74-106); Potassium 3.7 mmol/L (3.5-5.1); Sodium 140 mmol/L (136-145)
== END 2020-08-28 03:54 | disposition home or self-care (01) ==
LOC: LBO 03:53
PROVIDERS: PCP Nurse Practitioner Family
DX: R10.32 Left lower quadrant pain (principal)
CPT/HCPCS: 36415; 80053; 85025

== ENCOUNTER 2020-09-12 03:38 | Outpatient (CLI) | payer MEDICAID, SELFPAY ==
--- NOTE | 2020-09-12 07:15 | DI.CT_ITS ---
Exam(s) CT ABDOMEN PELVIS W EXAM: CT ABDOMEN PELVIS W CLINICAL HISTORY: ? hernia vs hematoma,F/U ABNL US,R10.32,LLQ ABD WALL PAIN. TECHNIQUE: Imaging Protocol: Axial computed tomography images with coronal and sagittal reformatted images were created and reviewed CONTRAST MATERIAL: Intravenous: Omnipaque 100cc Oral: None COMPARISON: CT CT CHEST PE CTA from 08/18/[address] CHEST PE CTA from 03/26/2020 FINDINGS: VISUALIZED LUNG BASES: No nodules nor pleural effusions evident. ABDOMEN: There is no ascites. LIVER: There is 2.8 x 1.1 by 1.6 cm fluid collection intimately related to anterior capsule right hep atic lobe. This was not evident on the lower most images of prior chest CT scan. There are no gas b ubbles within this fluid collection. No other focal hepatic findings. No dilatation of intrahepatic ducts. GALLBLADDER/BILIARY: No obvious gallbladder pathology. CBD is not dilated. PANCREAS: No evidence of pancreatic mass nor dilatation of the pancreatic duct. SPLEEN: Spleen is not enlarged. No obvious intrasplenic lesions. Splenic and portal veins are paten t. ADRENALS: There are no significant adrenal masses. KIDNEYS:No cysts evident. No solid renal masses. No calculi nor hydronephrosis.. ABDOMINAL AORTA: Abdominal aorta is not enlarged. LYMPH NODES:There is no retroperitineal nor paraaortic adenopathy. ABDOMINAL WALL: Some streaking in the deep subcutaneous tissues over the lower left anterior abdomina l wall is noted. No drainable fluid collection at this level nor elsewhere in the subcutaneous tissu es. GI: There is no evidence of bowel obstruction, free air, nor abscess. PELVIS: GI: No evidence of appendicitis.No evidence of sigmoid diverticulitis. LYMPH NODES: There is no intrapelvic nor inguinal adenopathy. REPRODUCTIVE: Uterus and adnexal regions appear age-appropriate. There is no free fluid in the pelvi s. URINARY BLADDER: No calculi nor obvious masses evident OSSEOUS: No significant osseous lesions. IMPRESSION: 1. With respect of the the patient's symptoms, there is some deep subcutaneous density over the anter ior aspect of the left rectus abdominus muscle which measures approximately 1.5 x 1.5 cm is probably related to scarring prior surgery. There is no true drainable fluid collection at this level. 2. Right-side of the abdomen there is a lentiform shaped abnormal fluid collection measuring 28 x 11 x 16 millimeters at the level of the anterior right hepatic lobe capsule. Difficult to determine if this is within the capsular subcapsular but this finding was not evident on the lower most images of the chest CT scan performed August 2019. It exhibits homogeneous fluid density without gas bubbles the rein. No overlying abnormality in the anterior abdominal wall musculature and subcutaneous fat layer over this region. Correlation with any interval trauma at this location is recommended. This findi ng requires appropriate follow-up 3. No other findings in the abdomen pelvis nor in the visualized lung bases. 4. RADIATION DOSE DELIVERED: 904.95mGy.cm Total DLP DATA REPOSITORY: All CT scans at this facility are submitted to the National Radiology Data Registry (NRDR) Dose Index Registry (DIR) with the [employer] (ACR). RADIATION OPTIMIZATION: All CT scans at this facility use at least one of these dose optimization te chniques: automated exposure control; mA and/or kV adjustment per patient size (includes targeted exa ms where dose is matched to clinical indication); or iterative reconstruction.
[2020-09-12] MEDS: Omnipaque 350 MG/ML 100 ML BTL IV (10:53)
[2020-09-12] MEDS: Omnipaque 350 MG/ML 50 ML BTL PO (10:53)
[2020-09-12] MEDS: Breeza Beverage 473 ML BTL PO ×2 (10:53→10:54)
[2020-09-12] MEDS: Normal Saline - Diluent 50 ML VIAL IV (10:54)
== END 2020-09-12 03:58 ==
PROVIDERS: PCP Nurse Practitioner Family; Visit Provider Surgery
DX: R10.32 Left lower quadrant pain (principal)
CPT/HCPCS: 74177; J3490; Q9967

== ENCOUNTER 2020-10-29 02:05 | Outpatient (CLI) | payer MEDICAID, SELFPAY ==
[2020-10-29 16:44] LABS: C-Reactive Protein 1.08 mg/dL (0.0-0.3)
[2020-10-29 16:45] LABS: ESR 26 mm/hr (0-20)
[2020-10-30 16:30] LABS: Rheumatoid Factor <8.6 IU/mL (<12.0)
[2020-10-31 10:39] LABS: Lyme Ab w Rflx to Lyme Confirm Negative (Negative)
== END 2020-10-29 02:06 | disposition home or self-care (01) ==
LOC: LBO 02:06
PROVIDERS: PCP Nurse Practitioner Family; Visit Provider Family Medicine
DX: M25.59 Pain in other specified joint (principal)
CPT/HCPCS: 36415; 85652; 86140; 86431; 86618

== ENCOUNTER 2021-01-21 07:36 | Emergency (ER) | payer MEDICAID, SELFPAY ==
[2021-01-21 07:45] VITALS: PULSE 86; RESP 16; TEMP 36.1; O2SAT 100
[2021-01-21 07:52] VITALS: BP 112/75; TEMP 36.1
--- NOTE | 2021-01-21 08:22 | W.ED.GENAD ---
Discharge Plan Disposition Patient Disposition: HOME Condition: Stable Discharge Details Clinical Impression: Injury of knee, left Primary Care Provider: Nuzhat Garcia ED Provider: Moises Blackburn Home Meds and New Rx's Prescriptions: Continued meloxicam 15 mg tablet 15 mg PO BID Qty: 180 RF: 4 Discharge Instructions Instructions: Knee Sprain (ED) Additional Instructions: X-ray did not reveal any dislocation or fracture. Rest, elevate, cool compresses every 2 hours for 20 minutes. Wear knee immobilizer and use crutches as needed, advance activity as tolerated. Continue your meloxicam as directed and you may also add on [id number] Tylenol as directed. Please watch for new or worsening symptoms and return to the ER for any concerns. If your symptoms not improving in the next 5-7 days with conservative measures, I have given you the name and number of orthopedics I recommend that you contact for outpatient reevaluation Stand Alone Forms: Work Release Referrals: Bay Johns MD [ [facility] STAFF PHYSICIAN] - Medical Decision Making This is a 30-year-old female with previous meniscus surgery to her left knee 15 years ago, presenting to the ER today with 2 falls one yesterday, 1 today, landing directly on her left knee. Denies any other injury. Clinically she has an abrasion to the inferior aspect of her left knee, full extension, limited flexion, increased discomfort with anterior draw and varus stress. Knee appears stable, no laxity. Will obtain x-ray. X-ray read by radiology is unremarkable. Discussed x-ray findings with patient. Will place into a long leg immobilizer and crutches, work note for the rest of the week. She will continue taking her meloxicam and I will recommend she takes [id number] Tylenol. We discussed resting, elevating, cool compresses. I have given her the name and number of our orthopedic provider to follow-up with if her symptoms not improving in the next week with conservative measures. She understands that reevaluation and potential MRI may be indicated for further evaluation of her symptoms. Standard discharge and return precautions provided This documentation was generated using [employer] system, please disregard any oddities of phrase or misspellings. Medical Records Medical records reviewed: Yes I reviewed the patient's medical records. Imaging Data Radiologic Study: Attestation: I personally reviewed and interpreted this imaging study as follows: Imaging: X-Ray Radiologist's impression: EXAM XR KNEE LT 4V+ CLINICAL HISTORY [ fall/direct blow x2. ] [] TECHNIQUE 2D digital imaging was performed of the left knee. [Four] images were obtained. [AP, lateral, Merchant and PA tunnel] [] views were obtained. COMPARISON [No exams were available for comparison] [] FINDINGS BONES: [No acute fracture is present.] [No bony destructive lesion is seen.] [] JOINTS: [The knee is normally aligned.] [No joint effusion is seen.] [] SOFT TISSUE: [Normal.] [] IMPRESSION [Normal radiographs of the left knee. HPI General Mode of arrival: ambulatory. Date/Time Provider Initiated Documentation: 01/21/21 07:59. Limitations to Documentation: no limitations. Information obtained by: patient. HPI Narrative: This is a 30-year-old female, reports past medical history of left knee meniscus repair approximately 15 years ago presenting to the ER today for evaluation of left knee pain. Patient states she had mechanical slip and fall both yesterday and today on ice, falling directly on her knee, not really a twisting mechanism. She denies any other injury. She denies any numbness, tingling, weakness. Reports the pain is mild to moderate at rest but worse with movement or bearing weight. She denies any numbness, tingling, weakness. She has been taking her meloxicam as directed. Related Data Home Medications Medication Instructions Recorded Confirmed meloxicam 15 mg tablet 15 mg PO BID #180 tab 01/16/21 01/21/21 Previous Rx's Medication Instructions Recorded meloxicam 15 mg tablet 15 mg PO BID #180 tab 01/16/21 Allergies Allergy/AdvReac Type Severity Reaction Status Date / Time Sulfa (Sulfonamide Allergy Unknown as a child Verified 01/21/21 07:48 Antibiotics) naproxen AdvReac Unknown GI UPSET Verified 01/21/21 07:48 General Stated Complaint: Orthopedic BONNIE: 4 Review of Systems Musculoskeletal Musculoskeletal: Denies deformity, Reports arthralgias, Denies numbness, Reports stiffness and Denies tingling Integumentary/Breasts Skin/Breast: Denies erythema Neurologic Neurologic: Denies numbness and Denies tingling [facility] Active Problem List Injury of knee, left (Acute) Pericarditis (Acute) Hyperlipidemia (Chronic) Lumbar back pain with radiculopathy affecting left lower extremity (Acute) TMJ (temporomandibular joint disorder) (Chronic) Ventral hernia without obstruction or gangrene (Acute) Left ovarian cyst (Acute) Medical History COVID-19 virus infection Positive test 06/10/20 Depressive disorder Migraine headache with aura Surgical History H/O left knee surgery (~2005) Torn Meniscus Repair H/O tubal ligation (09/30/15) History of section (~2012) 2012 and 2015 Family History Mother Diabetes Depression Hyperlipidemia Hypothyroidism Father Diabetes Hyperlipidemia Sister Hyperlipidemia Son ADHD Daughter No problems noted. Daughter No problems noted. Maternal Grandfather , at 82 of kidney failure COPD (chronic obstructive pulmonary disease) Heart disease Chronic kidney disease Diabetes Depression Maternal Grandmother , at 62 of colon cancer Colon cancer Paternal Grandfather , in his 60s of [place] Heart disease Myocardial infarction Paternal Grandmother , in her 70s of metastatic bone cancer Metastatic bone cancer Breast cancer Social History Smoking/Tobacco Use Status: Never Second Hand Exposure: Yes Smoking risk assessment performed?: Yes Alcohol Intake: current Alcohol Intake frequency: a few times a month Alcohol type: wine Drug use: Never Substance use type: does not use Caregiver/Support person: No Household members: significant other and children Housing: apartment Communication Needs: Corrective Lenses Do you need help understanding health information?: Rarely current occupation: Cook Pets and animals: Yes Pets and animals: cat(s) and fish Sexually active: Yes Do you think of yourself as: straight/heterosexual Current gender identity: female What is your relationship status?: living with partner How often do you talk on the phone with friends or family?: three or more times per week Do you belong to any clubs or organized social groups?: no Panel score (0-1 are the most socially isolated patients): 2 What type of physical activity do you participate in: walking Duration: 15-30 minutes/day Frequency: 3-4 times per week Rosa/Presybeterian: No preference Special rosa needs: No Seatbelt use: always Helmet use: Yes Helmet use: always Drive intox or ride w/intox fire truck driver: No Do you feel safe at home: Yes Do you feel safe in your relationship?: Yes History History 3 Para 3 Hx # Term Pregnancies Multiple births Hx # Pregnancies Ectopic pregnancies AB induced Hx Number of Living Children 3 AB spontaneous Exam Const General: cooperative, healthy appearing, comfortable and no acute distress Orientation: alert and awake HENMT Head: normal to inspection, normocephalic and atraumatic Eyes Conjunctivae: conjunctivae normal Neck Neck: normal visual inspection, trachea midline and supple Resp Effort & Inspection: normal respiratory effort and able to speak in complete sentences Cardio Rate: regular rate Rhythm: regular rhythm Skin General skin exam: no rashes or lesions noted Neuro General: patient alert, patient awake, moves all extremities and no focal motor deficits Cognition: normal cognition Speech: speech normal Gait: antalgic Motor: muscle tone normal throughout Sensory Exam: no sensory deficits noted Extrem Elbow/forearm/wrist images: 1. Abrasion Other: Left lower extremity hip, thigh, calf, ankle, foot unremarkable. 2+ Dorsalis pedal pulse. Full extension, limited flexion. Knee appears stable but increased discomfort with varus stress as well as positive anterior draw sign. There is diffuse anterior and lateral to palpation but there is no bony point tenderness or deformity. No joint laxity. Psych Appearance: grossly normal Mental Status: mental status grossly normal Course Vital Signs Vital signs: Vital Signs Temperature 36.1 C L 01/21/21 07:45 Pulse 86 01/21/21 07:45 Respiratory Rate 16 01/21/21 07:45 Pulse Oximetry 100 01/21/21 07:45 Temperature 36.1 C L 01/21/21 07:52 Temperature Source Skin 01/21/21 07:45 Pulse 86 01/21/21 07:45 Respiratory Rate 16 01/21/21 07:45 Respiratory Effort 01/21/21 07:45 Blood Pressure 112/75 01/21/21 07:52 Pulse Oximetry 100 01/21/21 07:45 Oxygen Delivery Method Room Air 01/21/21 07:45 Oxygen Flow Rate 0 01/21/21 07:45 Pain Level 8 01/21/21 08:00
--- NOTE | 2021-01-21 08:32 | DI.RAD_ITS ---
Exam(s) XR KNEE LT 4V+ EXAM: XR KNEE LT 4V+ CLINICAL HISTORY: fall/direct blow x2. TECHNIQUE: 2D digital imaging was performed of the left knee. Four images were obtained. AP, later al, Merchant and PA tunnel views were obtained. COMPARISON: No exams were available for comparison FINDINGS: BONES: No acute fracture is present. No bony destructive lesion is seen. JOINTS: The knee is normally aligned. No joint effusion is seen. SOFT TISSUE: Normal. IMPRESSION: Normal radiographs of the left knee. DATA REPOSITORY: RADIATION DOSE DELIVERED:
== END 2021-01-21 09:06 | disposition home or self-care (01) ==
PROVIDERS: Emergency Provider Physician Assistant; PCP Nurse Practitioner Family
DX: S89.82XA Other specified injuries of left lower leg, initial encounter (principal); W00.0XXA Fall on same level due to ice and snow, initial encounter
CPT/HCPCS: 99283; 73564; 99282

== ENCOUNTER 2021-07-30 14:51 | Emergency (ER) | payer MEDICAID, SELFPAY ==
[2021-07-30 14:53] VITALS: BP 123/78; PULSE 75; RESP 18; TEMP 36.8; O2SAT 100
--- NOTE | 2021-07-30 14:57 | ED.GENADUL_ITS ---
Discharge Plan Disposition Patient Disposition: HOME Condition: Stable Discharge Details Clinical Impression: Abdominal wall mass of left lower quadrant Primary Care Provider: Nuzhat Garcia ED Provider: Cathy Roman Home Meds and New Rx's Prescriptions: Continued hydroxychloroquine 200 mg tablet 400 mg PO DAILY Label Comments: TAKE 1 TABLET BY MOUTH TWICE DAILY Discharge Instructions Instructions: Soft Tissue Mass (ED) Additional Instructions: Your lab work and imaging today is reassuring and shows no evidence of acute concerning or significant findings. Your CT scan today again identified a soft tissue density in the left lower li drant which might be related to scarring after previous surgery. This may be the source of your pain. You have been placed on general surgery's follow-up list for follow-up in the office within the next week for reevaluation and consideration for repeat steroid injection at your site of pain. It is recommended that you alternate ice and heat to the affected area several times daily for 20 minutes at a time. Alternate tylenol and motrin as needed and directed for pain. Return immediately to the emergency department if you develop any worsening or new concerning symptoms. 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 No reported fever, GI or symptoms. Urine test negative. Patient appears comfortable and nontoxic. Her abdomen is soft and tender to deep palpation in the left lower quadrant. There are multiple small mobile soft masses within the left lower quadrant that may be associated with scar tissue from her previous abdominal surgery. There is 1 palpable 2 x 2 cm LLQ mass which is more tender to palpation. There is no overlying abdominal wall cellulitis, rigidity or guarding. As she has no GI symptoms, do not suspect an acute surgical abdomen. Differential diagnosis includes ovarian cyst, ovarian torsion, neuromuscular pain at site of previous surgery/scars, abdominal muscle wall strain, diverticulitis. This patient was evaluated during a time of global shortage of iodinated contrast media. Based on guidance from the [employer], best practices, and local institutional approaches, an alternative path for evaluating and managing the patient may have been employed in order to provide optimal care during this shortage. The current situation has been discussed with the patient. Discussed with radiologist and will plan for CT abdomen and pelvis with oral contrast. She does not have a full bladder and per discussion with radiologist, recommends a transvaginal ultrasound to rule out torsion. Will obtain screening labs and give a dose of Toradol and reassess. Patient again denies any vaginal discharge and states she had a normal Pap smear last year. She is declining any pelvic exam at this time and her presentation does not appear consistent with PID. Labs and imaging reviewed and negative for acute findings. Normal white blood cell count, electrolyte, lipase and liver function. Negative urinalysis. Transvaginal US notes: IMPRESSION: 1. Normal appearing uterus and age-appropriate endometrium. 2. Right ovarian follicular cysts. 3. No free fluid evident in the adnexal regions and cul-de-sac. CT abdomen/pelvis w/ PO contrast only notes: IMPRESSION: 1. No acute process within the abdomen or pelvis identified. 2. Stable small lenticular fluid collection along the anterior serosal surface of the right hepatic lobe. This is of uncertain etiology but could reflect chronic sequela of old trauma. 3. Stable to minimal increase in focal irregular soft tissue density within the subcutaneous fat anterior to the left lower quadrant of the abdomen, suggesting chronic scarring/fibrosis as sequela of prior surgery. Recommend clinical correlation. Patient reassessed and she denies any significant improvement in her symptoms. Patient drove herself here so we will hold on any narcotic pain medication. Case discussed and imaging reviewed with Dr. Greenwood --- possibilities include an endometrioma at the site of previous vs scarring or fibrosis -- recommending ice and heat, Tylenol and Motrin and will follow up with patient in the office within the next week for reevaluation and consideration for repeat steroid injection at the site of pain. Patient feels comfortable with this plan. Patient placed on surgery follow-up list. Usual and customary return precautions given prior to discharge. Medical Records Medical records reviewed: Yes I reviewed the patient's medical records. Medical records narrative: 09/12/20 CT ABDOMEN ? PELVIS W CLINICAL HISTORY: ? ? hernia vs hematoma,F/U ABNL US,R10.32,LLQ ABD WALL PAIN. ? TECHNIQUE:? Imaging Protocol: Axial computed tomography images with coronal and sagittal reformatted images were created and reviewed CONTRAST MATERIAL:? Intravenous: Omnipaque 100cc Oral: None COMPARISON:? CT CT CHEST PE CTA from 08/18/[address] CHEST PE CTA from 03/26/2020 FINDINGS: VISUALIZED LUNG BASES: No nodules nor pleural effusions evident.? ABDOMEN: There is no ascites. LIVER: There is 2.8 x 1.1 by 1.6 cm fluid collection intimately related to anterior capsule right hepatic lobe.? This was not evident on the lower most images of prior chest CT scan.? There are no gas bubbles within this fluid collection.? No other focal hepatic findings.? No dilatation of intrahepatic ducts. GALLBLADDER/BILIARY: No obvious gallbladder pathology.? CBD is not dilated. PANCREAS: No evidence of pancreatic mass nor dilatation of the pancreatic duct.? SPLEEN: Spleen is not enlarged.? No obvious intrasplenic lesions.? Splenic and portal veins are patent. ADRENALS: There are no significant adrenal masses. KIDNEYS:No cysts evident.? No solid renal masses.? No calculi nor hydronephrosis.. ABDOMINAL AORTA: Abdominal aorta is not enlarged. LYMPH NODES:There is no retroperitineal nor paraaortic adenopathy. ABDOMINAL WALL: Some streaking in the deep subcutaneous tissues over the lower left anterior abdominal wall is noted.? No drainable fluid collection at this level nor elsewhere in the subcutaneous tissues. GI: There is no evidence of bowel obstruction, free air, nor abscess. PELVIS:? GI: No evidence of appendicitis.No evidence of sigmoid diverticulitis. LYMPH NODES: There is no intrapelvic nor inguinal adenopathy. REPRODUCTIVE: Uterus and adnexal regions appear age-appropriate.? There is no free fluid in the pelvis. URINARY BLADDER: No calculi nor obvious masses evident OSSEOUS: No significant osseous lesions. IMPRESSION: 1. With respect of the the patient's symptoms, there is some deep subcutaneous density over the anterior aspect of the left rectus abdominus muscle which measures approximately 1.5 x 1.5 cm is probably related to scarring prior surgery.? There is no true drainable fluid collection at this level. 2. Right-side of the abdomen there is a lentiform shaped abnormal fluid collection measuring 28 x 11 x 16 millimeters at the level of the anterior right hepatic lobe capsule.? Difficult to determine if this is within the capsular subcapsular but this finding was not evident on the lower most images of the chest CT scan performed August 2019.? It exhibits homogeneous fluid density without gas bubbles therein.? No overlying abnormality in the anterior abdominal wall musculature and subcutaneous fat layer over this region.? Correlation with any interval trauma at this location is recommended.? This finding requires appropriate follow-up 3. No other findings in the abdomen pelvis nor in the visualized lung bases. Imaging Data Radiologic Study: Radiologist's impression: US TRANSVAGINAL CLINICAL HISTORY:? LLQ abd pain, h/o ovarian cyst, r/o torsion TECHNIQUE:? Ultrasound of the pelvis was performed using transvaginal technique. COMPARISON:? Prior CT scan 09/12/2020 was reviewed FINDINGS: UTERUS: Nongravid and anteverted Measures 5.4 cm length x 4.2 cm AP x 4.9 cm wide. There are no uterine fibroids. Endometrial thickness measures? mm. There is no fluid in the endometrial canal. CERVIX: Small nabothian cyst in the upper cervix noted. RIGHT OVARY: Measures 3 x 3.4 x 2.3 cm Contains follicular cysts, the largest of these measuring 1.8 cm by 1.2 cm.? Vascular flow was demonstrated in the right ovary. LEFT OVARY: Measures 2 x 1.2 x 2.1 cm No cysts nor masses evident.? Vascular flow is demonstrated in the left ovary. CUL-DE-SAC: No free fluid evident. IMPRESSION: 1. Normal appearing uterus and age-appropriate endometrium. 2. Right ovarian follicular cysts. 3. No free fluid evident in the adnexal regions and cul-de-sac. CT Abdomen And Pelvis Without Contrast Exam date and time: 07/30/2021 5:06 PM Age: 31 years old Clinical indication: Other: Llq abd pain, h/o mass llq TECHNIQUE: Imaging protocol: Computed tomography of the abdomen and pelvis without contrast. COMPARISON: CT ABDOMEN PELVIS W 09/12/2020 10:49 AM FINDINGS: Liver: There is a 3.1 x 1.1 cm lenticular fluid collection along the anterior aspect of the right hepatic lobe on image 25, series 2, without clear change in size since 09/12/2020. Gallbladder and bile ducts: Normal. No calcified stones. No ductal dilation. Pancreas: Normal. No ductal dilation. Spleen: Normal. No splenomegaly. Adrenal glands: Normal. No mass. Kidneys and ureters: No renal or ureteral stones are identified. There is no hydronephrosis or hydroureter. Stomach and bowel: There is no evidence of small or large bowel inflammation. There is no evidence for bowel obstruction. Appendix: The appendix is well visualized and appears normal. Intraperitoneal space: There is no evidence of free intraperitoneal fluid. There is no free intraperitoneal air. Vasculature: Unremarkable. No abdominal aortic aneurysm. Lymph nodes: Unremarkable. No enlarged lymph nodes. Urinary bladder: No bladder stones are identified. Reproductive: Unremarkable as visualized. Bones/joints: Unremarkable. No acute fracture. Soft tissues: There is a 1.4 x 0.9 cm focal irregular soft tissue density within the subcutaneous fat anterior to the left lower quadrant of the abdomen on image 58, series 2 with surrounding focal platelike soft tissue density, stable to minimally increased in size since prior study, suggesting chronic fibrosis. IMPRESSION: 1. No acute process within the abdomen or pelvis identified. 2. Stable small lenticular fluid collection along the anterior serosal surface of the right hepatic lobe. This is of uncertain etiology but could reflect chronic sequela of old trauma. 3. Stable to minimal increase in focal irregular soft tissue density within the subcutaneous fat anterior to the left lower quadrant of the abdomen, suggesting chronic scarring/fibrosis as sequela of prior surgery. Recommend clinical correlation. Lab Data Lab results reviewed: Yes I reviewed the patient's lab results. Labs: Laboratory Tests Range/Units 07/30/21 07/30/21 07/30/21 15:10 15:26 15:26 WBC (4.4-10.8) 10^3/uL 6.07 RBC (3.93-5.22) 10^6/uL 4.38 Hgb (11.2-15.7) g/dL 12.5 Hct (36.0-46.0) % 38.4 MCV (80-95) fL 88 MCH (27.0-33.0) pg 28.5 MCHC (32.0-36.0) % 32.6 RDW (11.7-14.6) % 12.8 Plt Count (130-400) 10^3/uL 287 MPV (8.0-11.0) fL 9.3 Immature Gran % 0.2 Neutrophils % 50.7 Lymphocytes % 37.6 Monocytes % 8.1 Eosinophils % 3.1 Basophils % 0.3 Nucleated RBC % (0.0-0.3) % 0.0 Absolute Neutrophils (1.2-6.7) 10^3/uL 3.08 Absolute Lymphocytes (1.2-3.4) 10^3/uL 2.28 Absolute Monocytes (0.1-0.8) 10^3/uL 0.49 Absolute Eosinophils (0.0-0.7) 10^3/uL 0.19 Absolute Basophils (0.0-0.2) 10^3/uL 0.02 Sodium (136-145) mmol/L 142 Potassium (3.5-5.1) mmol/L 3.6 Chloride (98-107) mmol/L 105 Carbon Dioxide (21.0-32.0) mmol/L 28.5 Anion Gap (3-11) mmol/L 8.5 BUN (7-18) mg/dL 11 Creatinine (0.55-1.02) mg/dL 0.8 Estimated GFR/1.73 m2 (mL/min/1.73m2) >= 60.00 Glucose (74-106) mg/dL 79 Calcium (8.5-10.1) mg/dL 9.1 Total Bilirubin (0.2-1.0) mg/dL 0.9 AST (15-37) U/L 23 ALT (14-59) U/L 27 Alkaline Phosphatase (46-116) U/L 83 Total Protein (6.4-8.2) g/dL 7.5 Albumin (3.4-5.0) g/dL 3.8 Lipase (73-393) U/L 71 Urine Color (Yellow) Yellow Urine Clarity (Clear) Clear Urine pH (5-8) 5.5 Ur Specific [place] (1.005-1.025) 1.015 Urine Protein (Negative) mg/dL Negative Urine Ketones (Negative) mg/dL Negative Urine Blood (Negative) Negative Urine Nitrite (Negative) Negative Urine Bilirubin (Negative) Negative Urine Urobilinogen (Up TO 0.2) EU/dL 0.2 Ur Leukocyte Esterase (Negative) Negative Urine Glucose (Negative) mg/dL Negative HPI General Mode of arrival: ambulatory . Date/Time Provider Initiated Documentation: 07/30/21 14:55 . Limitations to Documentation: no limitations . Information obtained by: patient . HPI Narrative: Patient is a 31-year-old female with a history of Palindromic rheumatism on hydroxychloroquine, x2, tubal ligation who presents to the ED with complaint of left lower quadrant abdominal pain for the past 6 weeks. She states the pain is constant throbbing with intermittent sharp pain. She states the pain is better when she uses her hands to support the area. She occasionally has relief with ibuprofen. She denies any fever, nausea, vomiting, diarrhea, urinary symptoms or vaginal discharge. Patient was seen at [facility] today for the symptoms and referred here for further evaluation and imaging. She states her pain feels different than her usual ovarian cysts as it is more intense than that at this time. Related Data Home Medications Medication Instructions Recorded Confirmed hydroxychloroquine 200 mg tablet 400 mg PO DAILY 07/30/21 07/30/21 Allergies Allergy/AdvReac Type Severity Reaction Status Date / Time Sulfa (Sulfonamide Allergy Unknown as a child Verified 07/30/21 14:57 Antibiotics) naproxen AdvReac Unknown GI UPSET Verified 07/30/21 14:57 General Stated Complaint: Abd Prob BONNIE: 4 Review of Systems All systems reviewed & are unremarkable except as noted in HPI and below Constitutional Constitutional: Denies chills, Denies excessive sweating, Denies fatigue, Denies fever(s), Denies weakness and Denies weight loss Eyes Eyes: Reports system reviewed and no additional complaints, except as documented and Denies blurry vision ENT Ears, Nose, Mouth, and Throat: Denies vertigo, Denies dizziness, Denies otalgia, Denies nasal congestion, Denies sore throat and Denies throat swelling Cardiovascular Cardiovascular: Denies chest pain, Denies syncope, Denies rapid heart rate and Denies dyspnea Respiratory Respiratory: Denies chest congestion, Denies cough, Denies pain on inspiration and Denies dyspnea Gastrointestinal Gastrointestinal: Reports abdominal pain, Denies diarrhea and Denies vomiting Genitourinary Genitourinary: Denies hematuria, Denies dysuria and Denies flank pain Musculoskeletal Musculoskeletal: Denies back pain and Denies joint swelling Integumentary/Breasts Skin/Breast: Denies lesions and Denies rash Neurologic Neurologic: Denies behavioral changes, Denies confusion, Denies vertigo, Denies dizziness, Denies syncope, Denies localized weakness and Denies weakness Psychiatric Psychiatric: Denies behavioral changes, Denies confusion and Denies depression Endocrine Endocrine: Denies excessive sweating and Denies fatigue Hematologic/Lymphatic Hematologic/Lymphatic: Denies easy bruising and Denies lymphadenopathy Allergic/Immunologic Allergic/Immunologic: Denies throat swelling PFSH All Active Problems (Updated 07/30/21 @ 18:26 by Cathy Roman DO) Abdominal wall mass of left lower quadrant (Acute) Injury of knee, left (Acute) Pericarditis (Acute) Hyperlipidemia (Chronic) Lumbar back pain with radiculopathy affecting left lower extremity (Acute) TMJ (temporomandibular joint disorder) (Chronic) Ventral hernia without obstruction or gangrene (Acute) Left ovarian cyst (Acute) Medical History COVID-19 virus infection Positive test 06/10/20 Depressive disorder Migraine headache with aura Surgical History H/O left knee surgery (~2005) Torn Meniscus Repair H/O tubal ligation (09/30/15) History of section (~2012) 2012 and 2015 Family History Mother Diabetes Depression Hyperlipidemia Hypothyroidism Father Diabetes Hyperlipidemia Sister Hyperlipidemia Son ADHD Daughter No problems noted. Daughter No problems noted. Maternal Grandfather , at 82 of kidney failure COPD (chronic obstructive pulmonary disease) Heart disease Chronic kidney disease Diabetes Depression Maternal Grandmother , at 62 of colon cancer Colon cancer Paternal Grandfather , in his 60s of CT Heart disease Myocardial infarction Paternal Grandmother , in her 70s of metastatic bone cancer Metastatic bone cancer Breast cancer Social History Smoking/Tobacco Use Status: Never Second Hand Exposure: Yes Smoking risk assessment performed?: Yes Alcohol Intake: current Alcohol Intake frequency: a few times a month Alcohol type: wine Drug use: Never Substance use type: does not use Caregiver/Support person: No Household members: significant other and children Housing: apartment Communication Needs: Corrective Lenses Do you need help understanding health information?: Rarely current occupation: Cook Pets and animals: Yes Pets and animals: cat(s) and fish Sexually active: Yes Do you think of yourself as: straight/heterosexual Current gender identity: female What is your relationship status?: living with partner How often do you talk on the phone with friends or family?: three or more times per week Do you belong to any clubs or organized social groups?: no Panel score (0-1 are the most socially isolated patients): 2 What type of physical activity do you participate in: walking Duration: 15-30 minutes/day Frequency: 3-4 times per week Rosa/Hoahaoism: No preference Special rosa needs: No Seatbelt use: always Helmet use: Yes Helmet use: always Drive intox or ride w/intox 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 Do you feel safe at home: Yes Do you feel safe in your relationship?: Yes History History 3 Para 3 Hx # Term Pregnancies Multiple births Hx # Pregnancies Ectopic pregnancies AB induced Hx Number of Living Children 3 AB spontaneous Exam Const General: cooperative and healthy appearing Orientation: alert, awake and oriented x3 HENMT Head: normal to inspection Ears: hearing grossly normal bilaterally, external ears normal and TM's normal bilaterally General nose exam: external nose normal Face and sinus: normal facial exam Mouth: oral mucosae normal Teeth and gingiva: dentition normal Throat: posterior oropharynx normal Eyes General: appearance normal, both eyes and all related structures Eyelids: eyelids normal Pupils: PERRL EOM: EOM intact bilaterally Neck Neck: normal visual inspection Lymphatic: no lymphadenopathy noted Chest Chest: normal inspection of the chest Resp Effort & Inspection: normal respiratory effort and able to speak in complete sentences Auscultation: clear to auscultation bilaterally Cardio Rate: regular rate Rhythm: regular rhythm GI Inspection: normal to inspection Palpation: soft, not firm, no guarding, no hepatosplenomegaly, no masses and tender in the LLQ Auscultation: normal bowel sounds Abdomen image: 1. Approximate 2 x 2 centimeter mobile soft mass noted within the left lower quadrant, multiple other small mobile soft masses noted. There is no overlying abdominal wall erythema, induration, fluctuance or crepitus. Back/Spine/Pelvis Back: no CVA tenderness Skin General skin exam: no rashes or lesions noted Neuro General: patient alert and patient awake Cognition: normal cognition Speech: speech normal Gait: normal gait Motor: muscle tone normal throughout Sensory Exam: no sensory deficits noted Extrem General: normal to inspection, full ROM and capillary refill normal Psych Appearance: grossly normal Mental Status: mental status grossly normal Speech and Movement: speech and movement normal Affect: normal affect Thought Process: normal Course Vital Signs Vital signs: Vital Signs Temperature 98.2 F 07/30/21 14:53 Pulse 75 07/30/21 14:53 Respiratory Rate 18 07/30/21 14:53 Blood Pressure 123/78 07/30/21 14:53 Pulse Oximetry 100 07/30/21 14:53 Temperature 98.2 F 07/30/21 14:53 Temperature Source Temporal Artery Scan 07/30/21 14:53 Pulse 75 07/30/21 14:53 Respiratory Rate 18 07/30/21 14:53 Blood Pressure 123/78 07/30/21 14:53 Blood Pressure Position Sitting 07/30/21 14:53 Pulse Oximetry 100 07/30/21 14:53 Oxygen Delivery Method Room Air 07/30/21 14:53 Oxygen Flow Rate 0 07/30/21 14:53 Pain Level 7 07/30/21 14:53
--- NOTE | 2021-07-30 15:15 | DI.CT_ITS ---
Exam(s) CT ABDOMEN PELVIS WO EXAM: CT ABDOMEN PELVIS WO CLINICAL HISTORY: LLQ abd pain, h/o mass LLQ. TECHNIQUE: Imaging Protocol: Axial computed tomography images with coronal and sagittal reformatted images were created and reviewed CONTRAST MATERIAL: Intravenous: none Oral: Yes. Oral contrast was administered for bowel opacification COMPARISON: CT CT ABDOMEN PELVIS W from 09/12/2020 FINDINGS: VISUALIZED LUNG BASES: No nodules nor pleural effusions evident. ABDOMEN: There is no ascites. LIVER: The previously described benign-appearing subcapsular fluid collection in the right hepatic lo be is again noted, measuring 3.2 by 1.1 by 1.5 cm craniocaudal. This is perhaps minimally increased in size from the prior study. No other focal hepatic findings. GALLBLADDER/BILIARY: No obvious gallbladder pathology. CBD is not dilated. PANCREAS: No evidence of pancreatic mass nor dilatation of the pancreatic duct. SPLEEN: Spleen is not enlarged. No obvious intrasplenic lesions. ADRENALS: There are no significant adrenal masses. KIDNEYS:No cysts evident. No solid renal masses. No calculi nor hydronephrosis. . ABDOMINAL AORTA: Abdominal aorta is not enlarged. LYMPH NODES: There is no retroperitoneal nor paraaortic adenopathy. ABDOMINAL WALL: No hernia but there is again noted deep scarring which has stable appearance over the left rectus abdominus muscle, unchanged from the prior study. There is no drainable fluid collectio n at this level nor elsewhere. GI: There is no evidence of bowel obstruction, free air, nor abscess. PELVIS: LYMPH NODES: There is no intrapelvic nor inguinal adenopathy. GI: No evidence of appendicitis.No evidence of sigmoid diverticulitis. URINARY BLADDER: No calculi nor obvious masses evident REPRODUCTIVE: Uterus and ovaries appear unremarkable. No extraovarian adnexal masses. No free fluid in the pelvis. OSSEOUS: No significant osseous lesions. IMPRESSION: 1. No acute findings in the abdomen and pelvis. 2. The previously described lenticular shaped subcapsular fluid collection in the liver over the righ t hepatic lobe has slightly increased in size by few millimeters. This is of uncertain etiology but may be related to prior trauma. 3. Stable appearance of deep soft tissue density in the deep subcutaneous fat contiguous with the low er left rectus abdominus. This is most probably scarring/fibrosis. Possibly related to prior surger y or trauma. There is no drainable fluid collection at this level. RADIATION DOSE DELIVERED: 849.47mGy.cm Total DLP DATA REPOSITORY: All CT scans at this facility are submitted to the National Radiology Data Registry (NRDR) Dose Index Registry (DIR) with the [employer] (ACR). RADIATION OPTIMIZATION: All CT scans at this facility use at least one of these dose optimization te chniques: automated exposure control; mA and/or kV adjustment per patient size (includes targeted exa ms where dose is matched to clinical indication); or iterative reconstruction.
--- NOTE | 2021-07-30 15:20 | DI.US_ITS ---
Exam(s) US TRANSVAGINAL EXAM: US TRANSVAGINAL CLINICAL HISTORY: LLQ abd pain, h/o ovarian cyst, r/o torsion TECHNIQUE: Ultrasound of the pelvis was performed using transvaginal technique. COMPARISON: Prior CT scan 09/12/2020 was reviewed FINDINGS: UTERUS: Nongravid and anteverted Measures 5.4 cm length x 4.2 cm AP x 4.9 cm wide. There are no uterine fibroids. Endometrial thickness measures mm. There is no fluid in the endometrial canal. CERVIX: Small nabothian cyst in the upper cervix noted. RIGHT OVARY: Measures 3 x 3.4 x 2.3 cm Contains follicular cysts, the largest of these measuring 1.8 cm by 1.2 cm. Vascular flow was demons trated in the right ovary. LEFT OVARY: Measures 2 x 1.2 x 2.1 cm No cysts nor masses evident. Vascular flow is demonstrated in the left ovary. CUL-DE-SAC: No free fluid evident. IMPRESSION: 1. Normal appearing uterus and age-appropriate endometrium. 2. Right ovarian follicular cysts. 3. No free fluid evident in the adnexal regions and cul-de-sac. DATA REPOSITORY:
[2021-07-30 15:25] LABS: Bilirubin Negative (Negative); Blood Negative (Negative); Clarity Clear (Clear); Glucose Negative (Negative); Ketones Negative (Negative); Leukocyte Esterase Negative (Negative); Nitrite Negative (Negative); Specific Gravity 1.015 (1.005-1.025); Urobilinogen 0.2 EU/dL (Up TO 0.2); pH 5.5 (5-8)
[2021-07-30 15:37] LABS: Abs Immature Grans 0.01 10^3/uL (0.0-0.06); Absolute Basophil Count 0.02 10^3/uL (0.0-0.2); Absolute Eosinophil Count 0.19 10^3/uL (0.0-0.7); Absolute Lymphocyte Count 2.28 10^3/uL (1.2-3.4); Absolute Monocyte Count 0.49 10^3/uL (0.1-0.8); Absolute Neutrophil Count 3.08 10^3/uL (1.2-6.7); Basophils % 0.3; Eosinophils % 3.1; HCT 38.4 % (36.0-46.0); HGB 12.5 g/dL (11.2-15.7); Immature Grans % 0.2; Lymphocytes % 37.6; MCH 28.5 pg (27.0-33.0); MCHC 32.6 % (32.0-36.0); MCV 88 fL (80-95); MPV 9.3 fL (8.0-11.0); Monocytes % 8.1; Neutrophils % 50.7; Platelet Count 287 10^3/uL (130-400); RBC 4.38 10^6/uL (3.93-5.22); RDW 12.8 % (11.7-14.6); RDW-SD 41.3 fL; WBC 6.07 10^3/uL (4.4-10.8)
[2021-07-30] MEDS: Ketorolac 30 MG/ML VIAL IVP (15:39)
[2021-07-30] MEDS: Normal Saline 1,000 ML 1000 ML IV (15:39)
[2021-07-30 15:51] LABS: ALT 27 U/L (14-59); AST 23 U/L (15-37); Albumin 3.8 g/dL (3.4-5.0); Alkaline Phosphatase 83 U/L (46-116); Anion Gap 8.5 mmol/L (3-11); BUN 11 mg/dL (7-18); Bilirubin, Total 0.9 mg/dL (0.2-1.0); CO2 28.5 mmol/L (21.0-32.0); CREATININE 0.8 mg/dL (0.55-1.02); Calcium 9.1 mg/dL (8.5-10.1); Chloride 105 mmol/L (98-107); Glucose 79 mg/dL (74-106); Lipase 71 U/L (73-393); Potassium 3.6 mmol/L (3.5-5.1); Sodium 142 mmol/L (136-145); Total Protein 7.5 g/dL (6.4-8.2)
[2021-07-30 15:59] VITALS: BP 126/80; PULSE 62; RESP 17; O2SAT 99
[2021-07-30] MEDS: Breeza Beverage 473 ML BTL PO (17:11)
--- NOTE | 2021-07-30 18:02 | DI.VRAD_ITS ---
PROCEDURE INFORMATION: Exam: CT Abdomen And Pelvis Without Contrast Exam date and time: 07/30/2021 5:06 PM Age: 31 years old Clinical indication: Other: Llq abd pain, h/o mass llq TECHNIQUE: Imaging protocol: Computed tomography of the abdomen and pelvis without contrast. COMPARISON: CT ABDOMEN PELVIS W 09/12/2020 10:49 AM FINDINGS: Liver: There is a 3.1 x 1.1 cm lenticular fluid collection along the anterior aspect of the right hepatic lobe on image 25, series 2, without clear change in size since 09/12/2020. Gallbladder and bile ducts: Normal. No calcified stones. No ductal dilation. Pancreas: Normal. No ductal dilation. Spleen: Normal. No splenomegaly. Adrenal glands: Normal. No mass. Kidneys and ureters: No renal or ureteral stones are identified. There is no hydronephrosis or hydroureter. Stomach and bowel: There is no evidence of small or large bowel inflammation. There is no evidence for bowel obstruction. Appendix: The appendix is well visualized and appears normal. Intraperitoneal space: There is no evidence of free intraperitoneal fluid. There is no free intraperitoneal air. Vasculature: Unremarkable. No abdominal aortic aneurysm. Lymph nodes: Unremarkable. No enlarged lymph nodes. Urinary bladder: No bladder stones are identified. Reproductive: Unremarkable as visualized. Bones/joints: Unremarkable. No acute fracture. Soft tissues: There is a 1.4 x 0.9 cm focal irregular soft tissue density within the subcutaneous fat anterior to the left lower quadrant of the abdomen on image 58, series 2 with surrounding focal platelike soft tissue density, stable to minimally increased in size since prior study, suggesting chronic fibrosis. IMPRESSION: 1. No acute process within the abdomen or pelvis identified. 2. Stable small lenticular fluid collection along the anterior serosal surface of the right hepatic lobe. This is of uncertain etiology but could reflect chronic sequela of old trauma. 3. Stable to minimal increase in focal irregular soft tissue density within the subcutaneous fat anterior to the left lower quadrant of the abdomen, suggesting chronic scarring/fibrosis as sequela of prior surgery. Recommend clinical correlation. Dictated and Authenticated by: Wagner Alcala MD. Ordering:SAMSON Morgan MD
--- NOTE | 2021-07-30 18:26 | NUR.NOTE ---
Nursing Note: Referral faxed to [facility] Surgery for abdominal wall mass for this Wednesday or next week. Consulted with Dr. Casas.
[2021-07-30 18:41] VITALS: BP 126/80; PULSE 68; RESP 18; TEMP 37; O2SAT 98
== END 2021-07-30 18:52 | disposition home or self-care (01) ==
PROVIDERS: Emergency Provider Physician Assistant; PCP Nurse Practitioner Family
DX: R19.04 Left lower quadrant abdominal swelling, mass and lump (principal)
CPT/HCPCS: 80053; 81025; 83690; 96361; 96374; 99285; 74176; 76830; 81003; 85025; 99284; J1885; J3490

== ENCOUNTER 2021-09-01 01:24 | Outpatient (CLI) | payer MEDICAID, SELFPAY ==
--- OUTSIDE RECORDS SUMMARY | 2021-09-01 01:25 | XMS_ITS | Encounter Summary ---
:1990 Author Organization [facility] [place] [address] Care Team Providers Name Role Phone Nuzhat Garcia APRN Primary Care Provider Reason for Visit Reason Onset Date Comments Prior Authorization 05/27/2021 Encounter Details Date Type Department Care Team Description 05/27/2021 [place] [facility] [place] [address] Social History Tobacco Use Types Packs/Day Years Used Date Never Smoker Smokeless Tobacco: Never Used Sex Assigned at Date Recorded Not on file documented as of this encounter Miscellaneous Notes Telephone Encounter - Erika Briceno - 05/27/2021 11:43 AM EDT Images from the original note were not included. Medication Prior Authorization Felicia ? Medication name/dose/directions: Colchicine 0.6mg capsules - once daily ?? Rationale for request: Pericarditis ?? Health plan: [place] Medicaid ([facility]) ?? Authorizing patient relations representative name: Jessy ?? Sent to health plan on: 05/27/21 ?? Health plan decision: Denied ?? Quantity approved: ?? Authorization number: [id number] ?? Start date: End date: documented in this encounter Plan of Treatment Upcoming Encounters Date Type Specialty Care Team Description 11/04/2021 Office Visit Rheumatology Rachelle Duarte MD [facility] DR RHEUMATOLOGY [place], [place] [address] (Wo rk) documented as of this encounter Visit Diagnoses Not on filedocumented in this encounter Care Teams Orchid Hand Relationship Specialty Start Date End Date Nuzhat Garcia APRN PCP - General Family Medicine 04/01/[address] [place] [address] [address] [place] [address] documented as of this encounter
--- OUTSIDE RECORDS SUMMARY | 2021-09-01 01:25 | XMS_ITS | Encounter Summary ---
:1990 Author Organization [facility] [place] [address] Care Team Providers Name Role Phone Nuzhat Garcia APRN Primary Care Provider Encounter Details Date Type Department Care Team Description 08/06/2020 TH Visit Rheumatology at [facility] [place] Rachelle Duarte Other acute (TeleHealth) [facility] MD [place] [address] [phone] [place] [address] Social History Tobacco Use Types Packs/Day Years Used Date Never Smoker Smokeless Tobacco: Never Used Sex Assigned at Date Recorded Not on file documented as of this encounter Progress Notes Rachelle Duarte MD - 08/06/2020 10:00 AM EDT She did not get a reminder and has been busy with her kids baseball. She did not log onto the video visit. She still has pain--worse if she is active the next day, episodes 1-2 times since the last visit. She is taking two 600mg ibuprofen daily, She is taking colchicine 0.6mg daily, she has almost daily pain. She stopped work for summer vacation. Her joint pain continues, with no swelling or stiffness, no rashes. Past: 29 yo woman with history of pericarditis--treated. Pain started suddenly on L sided, unable totake a full breath in August 2019. Symptoms improved over 2-4 weeks. She was treated with colchicine 0.6 mg twice daily and NSAIDs has used both indomethacin and ibuprofen. No viral sx prior. No rashes. No Raynaud's. + dry eyes and mouth. No LAD. No cough. No sun sensitivity. Symptoms improved over timeand then 1 to 2 months ago she had onset of right-sided chest pain. Is been difficult to get this pain to resolve. Does not tend to be positional its not related to exertion and is not associated with other rest david symptoms. She did have significant sicca symptoms, although she does have a history of uveitis She was also started on omeprazole but this has not significantly improved sx to date. Shoulders and elbows hurt randomly. No swelling or stiffness in the morning, but stiff during the day at work. No other history of serositis. She has no Raynaud's, patchy hair loss, oral ulceration, other shortness of breath. Medications and allergies reviewed PMH: Healthy with placenta previa no clotting issues Benign paroxysmal positional vertigo Depression Hyperlipidemia Migraine with aura TMJ No losses She has a history of left knee surgery for torn meniscus in 2005 She is a tubal ligation in September 2015 she has a history of sections In 2012 in 2015 SH: Works in a kitchen She has never been a smoker and she drinks alcohol a few times a month FH:MA with RA PE: There were no vitals taken for this visit. Telephone call Labs/studies: Labs from March 26, 2020 WBC 5.7 Hemoglobin 12.7 Platelets 309 Differential normal Normal INR and PTT Normal troponin Rheumatoid factor negative, CHRISTINE negative, double-stranded DNA negative antiphospholipid antibodies negative per report ESR 12/04 41 03/2020 58 CRP 09/05/19 2.24 mg/L CT of the chest by PE protocol on March 26, 2020 impression: No evidence of pulmonary embolism wisdom thoracic aortic dissection or aneurysm no other masses are noted. 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 She did have elevated inflammatory markers throughout this course although they seem to improve with treatment. In March of this year she had recurrent symptoms that were more right-sided and shecontinues on colchicine and ibuprofen with omeprazole added in. Work-up for underlying cause of. Carditis has been unrevealing. And we are asked to comment on whether this could be due to connective tissue disease. She is actually had an excellent work-up so far for connective tissue disease related pericarditis. She has not had an aspiration to look for malignant cells. 90% of pericarditis is idiopathic and additional w/u was unrevealing (reviewed in eDH). It is reasonable to continue her on the colchicine and NSAIDs for now, pericarditis does tend to have a recurrent picture and symptoms steroids are indicated if there have been multiple recurrences andshe is resistant to other therapies. The steroids are avoided initially as they likely increase the risk of steroid dependence and possibly recurrence. We discussed as her symptoms continue, would recommend trial of low dose prednisone (5mg daily) if her inflammatory markers are elevated. She agreed with this plan as colchicine 0.6mg daily and ibuprofen 600mg daily have not resolved the issue and shehas daily pain, although not as severe as August 2019. No other new rheuma sx at this time. Orders Placed This Encounter Procedures ??? Sedimentation rate ??? CRP, acute inflammation Prednisone 5mg daily if elevated (trial) F/u in 3 months documented in this encounter Plan of Treatment Upcoming Encounters Date Type Specialty Care Team Description 11/04/2021 Office Visit Rheumatology Rachelle Duarte MD [facility] DR RHEUMATOLOGY [place] [employer], [place] [address] (Wo rk) documented as of this encounter Results (ABNORMAL) Sedimentation rate (02/19/2021 12:15 PM EST) P athologist Signature Sed Rate 68 (H) 2 - 37 [facility] mm/hr [facility] Comment: Effective January 25, 2019 new capillar y photometric technology has resulted in a change in reference ranges. It is r ecommended that each ESR result be reviewed with its own age appropriate re ference range. Specimen Anatomical Collection Method Collection Time Receive d Time (Source) Location / / Volume Laterality Blood 02/19/2021 12:15 02/19/2021 PM EST 12:35 PM EST Resulting Agency Comment Spec In Lab Rachelle Duarte MD HEMATOLOGY ORDERABLES Performing Organization Address City/State/ZIP Code Phon [place] [address] documented in this encounter Visit Diagnoses Diagnosis Other acute pericarditis documented in this encounter Care Teams Sash Installer Relationship Specialty Start Date End Date Nuzhat Garcia APRN PCP - General Family Medicine 04/01/[address] [place] [address] documented as of this encounter
--- OUTSIDE RECORDS SUMMARY | 2021-09-01 01:25 | XMS_ITS | Encounter Summary ---
:1990 Author Organization [facility] [place] [address] Care Team Providers Name Role Phone Nuzhat Garcia APRN Primary Care Provider Reason for Visit Consultation (Urgent) - Closed Specialty Diagnoses / Procedures Referred By Contact Refer red To Contact Rheumatology Diagnoses Personal history of other diseases of the circulatory system Nuzhat Garcia APRN [facility] Rheumatology [address]c [address] [place] [address] [address] [place], [place] [address] Referral ID Status Reason Start Date Expiration Date Visits V isits Requested Authorized [id number] Closed Consult, Test 04/01/2020 04/01/2021 [facility] PCP Updated and/or Approved Encounter Details Date Type Department Care Team Description 05/01/2020 Office Visit Rheumatology at [facility] Rachelle Duarte [facility] [place] [address] CENTER [phone] RHEUMATOLOGY DEPT. [place], [place] [address] Social History Tobacco Use Types Packs/Day Years Used Date Never Smoker Smokeless Tobacco: Never Used Sex Assigned at Date Recorded Not on file documented as of this encounter Last Filed Vital Signs Vital Sign Reading Time Taken Comments Blood Pressure 115/73 05/01/2020 9:17 AM EDT Pulse 82 05/01/2020 9:17 AM EDT Temperature 36.7 ??C (98 ??F) 05/01/2020 9:17 AM EDT Respiratory Rate 18 05/01/2020 9:17 AM EDT Oxygen Saturation 100% 05/01/2020 9:17 AM EDT Inhaled Oxygen Concentration - - Weight 83.8 kg (184 lb 12.8 oz) 05/01/2020 9:17 AM EDT Height 157.5 cm (5' 2) 05/01/2020 9:17 AM EDT Body Mass Index 33.8 05/01/2020 9:17 AM EDT documented in this encounter Progress Notes Rachelle Duarte MD - 05/01/2020 9:30 AM EDT Referred by: Nuzhat Garcia For consultation and evaluation of: 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 These have been scanned into the medical record for future review. Cc: pericarditis HPI: 29 yo woman with history of pericarditis--treated. Pain started suddenly on L sided, unable to take a full breath in August 2019. Symptoms improved over 2-4 weeks. She was treated with colchicine 0.6 mg twice daily and NSAIDs has used both indomethacin and ibuprofen. No viral sx prior. No rashes. No Raynaud's. + dry eyes and mouth. No LAD. No cough. No sun sensitivity. Symptoms improved over time and then 1 to 2 months ago she had onset of right-sided chest pain. Is been difficult to get this pain to resolve. Does not tend to be positional its not related to exertion and is not associated with other rest david symptoms. She did have significant sicca symptoms, although she does have a history ofuveitis She was also started on omeprazole but this has not significantly improved sx to date. Shoulders and elbows hurt randomly. No swelling or stiffness in the morning, but stiff during the day at work. No other history of serositis. She has no Raynaud's, patchy hair loss, oral ulceration, other shortness of breath. ROS: No Raynaud's No malar rash No sun sensitivity No patchy alopecia or hair loss No LEWIS No vision change, red painful or swollen eyes-uveitis No hearing loss or ear pain no No epistaxis, no sinusitis or ulcers No oral ulcers or thrush No SOB or cough, no hemoptysis No CP or palpitations No abdominal pain or GI complaints including nausea, vomiting, diarrhea or constipation No urinary complaints No rashes or bruising No focal or global weakness No fevers, chills, sweats or adenopathy No infections No unintentional weight loss or excessive fatigue Mood is stable Medications and allergies reviewed PMH: Healthy with placenta previa no clotting issues Benign paroxysmal positional vertigo Depression Hyperlipidemia Migraine with aura TMJ No losses She has a history of left knee surgery for torn meniscus in 2005 She is a tubal ligation in September 2015 she has a history of sections In 2012 in 2016 SH: Works in a kitchen She has never been a smoker and she drinks alcohol a few times a month FH:MA with RA PE: BP 115/73 Pulse 82 Temp 36.7 ??C (98 ??F) (Temporal) Resp 18 Ht 157.5 cm (5' 2) Wt 83.8 kg (184 lb 12.8 oz) SpO2 100% BMI 33.80 kg/m?? Alert and pleasant in NAD Skin: no rashes Sclera anicteric, conjunctiva not injected Nares without d/c O/p Moist no lesions, ulcers or thrush Neck: no cervical adenopathy Lungs: CTAB Heart RRR no mrg Abd: Active bs, soft, nt, nd no masses or organomegaly appreciated Ext: no c/c/e pulses 2+ and symmetric at DP and radial No synovitis in upper or lower extremities Neuro: grossly non-focal Labs/studies: Labs from March 26, 2020 WBC [...] noted. Impression/Recommendations: This is a very pleasant 29-year-old Cook who initially had an episode ofpericarditis [...] cells. 90% of pericarditis is idiopathic and I would complete the work-up already started by her primary provider to see if there is evidence of immune activation, vasculitis, Sjogren's syndrome, seropositive rheumatoid arthritis (rheumatoid factor was negative but I do not see an anti-CCP antibody) hepatitis C and thyroid disease. Will check her urine to make sure there is no active sediment with blood or protein. It is reasonable to continue her on the colchicine and NSAIDs for now, pericarditis does tend to have a recurrent picture and symptoms steroids are indicated if there have been multiple recurrences andshe is resistant to other therapies. The steroids are avoided initially as they likely increase the risk of steroid dependence and possibly recurrence. Final rheumatology pictures evolve over time and so if she does have a change in symptoms or evolution of symptoms would be happy to see her back as well. Orders Placed This Encounter Procedures ??? Urine culture ??? Cyclic Citrullinated Peptide ??? C3 Complement ??? C4 Complement ??? Complement, Total ??? Extractable Nuclear Antigen (DOMINGO) Ab ??? Urinalysis with reflex Culture ??? Sedimentation rate ??? CRP, acute inflammation ??? CBC (with Diff) ??? TSH ??? Hepatitis C Antibody ??? Hemogram ??? Differential, Automated ??? Urinalysis Microscopic Exam Thank you for this interesting referral. Please do not hesitate to contact me if you have any questions or concerns. documented in this encounter Plan of Treatment Upcoming Encounters Date Type Specialty Care Team Description 11/04/2021 Office Visit Rheumatology Rachelle Duarte MD [facility] [address] RHEUMATOLOGY [place], [place] [address] (Wo rk) documented as of this encounter Procedures Procedure Name Priority Date/Time Associated Diagnosis Comme nts URINALYSIS Routine 05/01/2020 11:09 Results for this MICROSCOPIC EXAM AM EDT procedure a re in the results section. URINALYSIS WITH Routine 05/01/2020 11:09 Other acute Results for this REFLEX CULTURE AM EDT pericarditis procedure are in the results section. URINE CULTURE Routine 05/01/2020 11:09 Results fo r this AM EDT procedure are i n the results section. HC C-REACTIVE PROTEIN Routine 05/01/2020 11:08 Other acute Re sults for this AM EDT pericarditis procedure are i n the results section. HC PCH EXTRACTABLE Routine 05/01/2020 11:08 Other acute Resul ts for this NUCLEAR ANTIGEN AM EDT pericarditis procedure ar e in the results section. HC CYCLIC CITRULLINE Routine 05/01/2020 11:08 Other acute Res ults for this PEPTIDE AM EDT pericarditis procedure are i n the results section. HEMOGRAM Routine 05/01/2020 11:08 Other acute Results for this AM EDT pericarditis procedure are i n the results section. DIFFERENTIAL, Routine 05/01/2020 11:08 Other acute Results fo r this AUTOMATED AM EDT pericarditis procedure are i n the results section. HC VENIPUNCTURE Routine 05/01/2020 11:08 Other acute Results for this AM EDT pericarditis procedure are i n the results section. HC ESR-SEDIMENTATION Routine 05/01/2020 11:08 Other acute Res ults for this RATE, BLOOD AM EDT pericarditis procedure are i n the results section. HC CBC,PLT & AUTO Routine 05/01/2020 11:08 Other acute DIFF AM EDT pericarditis HC PCH COMPLEMENT, Routine 05/01/2020 11:08 Other acute Resul ts for this TOTAL (CH50) AM EDT pericarditis procedure are i n the results section. HC COMPLEMENT,C3 Routine 05/01/2020 11:08 Other acute Results for this SERUM AM EDT pericarditis procedure are i n the results section. HC COMPLEMENT C4, Routine 05/01/2020 11:08 Other acute Result s for this PLASMA AM EDT pericarditis procedure are i n the results section. HC THYROID Routine 05/01/2020 11:08 Other acute Results for this STIMULATING HORMONE, AM EDT pericarditis procedu re are in SERUM the results section. documented in this encounter Results (ABNORMAL) Urine culture (05/01/2020 11:09 AM EDT) Component Value Ref Test Analysis Performed At Patholo gist Range Method Time Signature Urine Culture 10,000-49,000 cfu/ml Escherichia coli JEANE 10,000-49,000 cfu/ml Normal mucosal crystal : Susceptibility testing not EXMORE routinely performed for Coagulase Negative Staphylococcus species and other [facility] Gram Positive organisms from urine. HOSPITAL (A) LABORATORY Organism Escherichia coli [facility] (A) [facility] LABORATORY Specimen Anatomical Collection Method Collection Time Receive d Time (Source) Location / / Volume Laterality Urine specimen 05/01/2020 11:09 5:05 (specimen) AM EDT PM EDT Resulting Agency Comment Spec In Lab Organism Antibiotic Method Susceptibility Escherichia coli Amikacin VITEK 2 METHOD Sensitive Escherichia coli Ampicillin + Sulbactam VITEK 2 METHOD Sensitiv e Escherichia coli Aztreonam VITEK 2 METHOD Sensitive Escherichia coli Cefazolin VITEK 2 METHOD Sensitive Escherichia coli Ceftazidime VITEK 2 METHOD <=1: Sensitive Escherichia coli Ceftriaxone VITEK 2 METHOD Sensitive Escherichia coli Ertapenem VITEK 2 METHOD Sensitive Escherichia coli Gentamicin VITEK 2 METHOD Sensitive Escherichia coli Levofloxacin VITEK 2 METHOD Sensitive Comment: Levofloxacin and Ciprofloxac in may not adequately treat infections in critically ill patients even when isolates test susceptible in the laboratory. Contact Infectious Disease b efore using in critically ill patients. Escherichia coli Meropenem VITEK 2 METHOD <=0.25: Sensiti ve Escherichia coli Nitrofurantoin VITEK 2 METHOD Sensitive Escherichia coli Piperacillin/Tazobactam VITEK 2 METHOD <=4: Se nsitive Escherichia coli Tetracycline VITEK 2 METHOD Sensitive Escherichia coli Tobramycin VITEK 2 METHOD Sensitive Escherichia coli Trimethoprim/Sulfa VITEK 2 METHOD Sensitive Rachelle Duarte MD MICROBIOLOGY - GENERAL ORDER JACI Performing Organization Address City/State/ZIP [place] [address] (ABNORMAL) Urinalysis Microscopic Exam (05/01/2020 11:09 AM EDT) P athologist Signature RBC UA 2 0 - 4 /HPF [facility] LABORATORY WBC UA 11 (H) 0 - 5 /HPF [facility] LABOR[facility]ORY Bacteria UA Few (A) None /HPF [facility] LABORATORY Squam Epith UA 5 (H) <=4 /HPF [facility] LABORATORY Hyaline Cast 6 (H) 0 - 2 /LPF [facility] LABORATORY Specimen Anatomical Collection Method Collection Time Receive d Time (Source) Location / / Volume Laterality Urine specimen 05/01/2020 11:09 1 (specimen) AM EDT 11:34 AM EDT Resulting Agency Comment Spec In Lab Rachelle Duarte MD URINE ORDERABLES Performing Organization Address City/State/ZIP [place] [address] (ABNORMAL) Urinalysis with reflex Culture (05/01/2020 11:09 AM EDT) [facility] gist Method Time Signature Glucose UA Negative Negative [facility] mg/dL [facility] LABORATORY Protein UA Negative Negative [facility] mg/dL [facility] LABORATORY Bilirubin UA Negative Negative [facility] mg/dL [facility] LABORATORY Comment: Clinical correlation required for positi ve Urine Bilirubin results as false positive may occur with some drugs and d rug related products. If a false positive is suspected a serum total bili celaya should be considered if clinically indicated. Urobilinogen UA Normal Normal mg/dL [facility] LABORATORY pH UA 5.5 5.0 - 8.0 [facility] LABORATORY Blood UA Negative Negative mg/dL [facility]ORY Ketones UA Negative Negative mg/dL [facility]ORY Nitrite UA Negative Negative [facility] LABORATORY Leukocytes UA Small (A) Negative [facility] LABORATORY Appearance UA Clear Clear [facility] LABORATORY Spec [place] UA 1.026 1.006 - 1.030 [facility] LABORATORY Color UA Yellow Yellow [facility] LABORATORY Culture Reflexed Yes [facility] LABORATORY Specimen Anatomical Collection Method Collection Time Receive d Time (Source) Location / / Volume Laterality Urine specimen 05/01/2020 11:09 1 (specimen) AM EDT 11:34 AM EDT Resulting Agency Comment Spec In Lab Rachelle Duarte MD URINE ORDERABLES Performing Organization Address City/State/ZIP [place] [address] Differential, Automated (05/01/2020 11:08 AM EDT) athologist Signature Neutrophils % 44.4 % [facility] LABORATORY Neutr Abs (ANC) 2.96 1.70 - [facility] 6.10 [facility] x10(3)/[facility] LABORATORY Lymphocytes % 43.2 % [facility] LABORATORY Lymphocytes Abs 2.9 0.9 - 3.2 [facility] x10(3)/[facility] LABORATORY Monocytes % 7.4 % [facility] LABORATORY Monocyte Abs 0.5 0.3 - 0.9 [facility] x10(3)/[facility] LABORATORY Eosinophils % 4.4 % [facility] LABORATORY Eosinophils Abs 0.3 0.0 - 0.4 [facility] x10(3)/[facility] LABORATORY Basophils % 0.3 % [facility] LABORATORY Basophils Abs 0.0 0.0 - 0.1 [facility] x10(3)/[facility] LABORATORY Immature Gran % 0.30 % [facility] LABORATORY Comment: Immature granulocytes(IG's)percentage an d absolute count will include metamyelocytes, myelocytes, and promyelo cytes. Blood smears from CBCs yielding IG's will be scanned manually for concor dance. If this scan disagrees with the automated IG or if promyelocytes are not ed, a manual differential will be performed. Tonya Gran Abs 0.02 0.00 - 0.04 x10(3)/[facility] Y [facility] LABORATORY Specimen Anatomical Collection Method Collection Time Receive d Time (Source) Location / / Volume Laterality Blood specimen 05/01/2020 11:08 1 (specimen) AM EDT 11:36 AM EDT Resulting Agency Comment Spec In Lab Rachelle Duarte MD HEMATOLOGY ORDERABLES Performing Organization Address City/State/ZIP [place] [address] Hemogram (05/01/2020 11:08 AM EDT) P athologist Signature WBC 6.7 4.0 - 9.5 [facility] x10(3)/[facility] LABORATORY RBC 4.31 4.00 - [place] SAMIA 5.21 [facility] x10(6)/[facility] LABORATORY Hemoglobin 12.0 11.7 - [facility] g[facility]/dL [facility] LABORATORY Hematocrit 37.3 35.7 - [facility] 45.8 % [facility] LABORATORY MCV 86.5 82.6 - [facility] 94.4 [facility] LABORATORY MCH 27.8 27.1 - [place] SAMIA 32.[address] [facility] LABORATORY MCHC 32.2 31.7 - [facility] SAMIA 35.0 gm/dL [facility] LABORATORY Platelets 280 145 - 357 [facility] x10(3)/[facility] LABORATORY RDWSD 43.2 37.0 - [place] SAMIA 46.0 [facility] LABORATORY RDWCV 13.7 11.5 - [facility] SAMIA 14.1 % [facility] LABORATORY MPV 9.8 7.6 - 12.9 [facility] LABORATORY nRBC % Auto 0.0 % [facility] LABORATORY nRBC Abs Auto 0.000 0.000 - [facility] 0.000 [facility] x10(3)/[facility] LABORATORY Specimen Anatomical Collection Method Collection Time Receive d Time (Source) Location / / Volume Laterality Blood specimen 05/01/2020 11:08 1 (specimen) AM EDT 11:36 AM EDT Resulting Agency Comment Spec In Lab Rachelle Duarte MD HEMATOLOGY ORDERABLES Performing Organization Address City/State/ZIP [place] [address] Hepatitis C Antibody (05/01/2020 11:08 AM EDT) Analysis Performed At Patho logist Time Signature Hepatitis C Ab Negative Negative [facility] LABORATORY Specimen Anatomical Collection Method Collection Time Receive d Time (Source) Location / / Volume Laterality Blood specimen 05/01/2020 11:08 1 (specimen) AM EDT 11:36 AM EDT Resulting Agency Comment Spec In Lab Rachelle Duarte MD IMMUNOLOGY ORDERABLES Performing Organization Address City/[facility]/[place] [address] TSH (05/01/2020 11:08 AM EDT) P athologist Signature TSH 2.29 0.27 - 4.20 [facility] mcIU/mL [facility] LABORATORY Specimen Anatomical Collection Method Collection Time Receive d Time (Source) Location / / Volume Laterality Blood specimen 05/01/2020 11:08 1 (specimen) AM EDT 11:36 AM EDT Resulting Agency Comment Spec In Lab Rachelle Duarte MD CHEMISTRY ORDERABLES Performing Organization Address City/[facility]/ZIP [facility] [place] [address] (ABNORMAL) CRP, acute inflammation (05/01/2020 11:08 AM EDT) P athologist Signature CRP 5.0 (H) <=4.9 mg/L [facility] LABORATORY Specimen Anatomical Collection Method Collection Time Receive d Time (Source) Location / / Volume Laterality Blood specimen 05/01/2020 11:08 1 (specimen) AM EDT 11:36 AM EDT Resulting Agency Comment Spec In Lab Rachelle Duarte MD CHEMISTRY ORDERABLES Performing Organization Address City/[facility]/[place] [address] (ABNORMAL) Sedimentation rate (05/01/2020 11:08 AM EDT) P athologist Signature Sed Rate 43 (H) 2 - 37 [facility] mm/hr [facility] LABORATORY Comment: Effective January 25, 2019 new capillar y photometric technology has resulted in a change in reference ranges. It is r ecommended that each ESR result be reviewed with its own age appropriate re ference range. Specimen Anatomical Collection Method Collection Time Receive d Time (Source) Location / / Volume Laterality Blood specimen 05/01/2020 11:08 1 (specimen) AM EDT 11:36 AM EDT Resulting Agency Comment Spec In Lab Rachelle Duarte MD HEMATOLOGY ORDERABLES Performing Organization Address City/State/ZIP Code Phon [place] [address] Extractable Nuclear Antigen (DOMINGO) Ab (05/01/2020 11:08 AM EDT) [facility] Method Time Signature DOMINGO Ab JEANE GRACIA Test ?Result ?Flag ??Unit ??RefValue [facility] HOSPITAL Ab to Extractable Nuclear Ag [facility] [place] LABORATORY ??SS-A/Ro Ab, IgG, S ?<0.2 ?U ? <1.0 (Negative) ??SS-B/La Ab, IgG, S ?<0.2 ?U ? <1.0 (Negative) ??Sm Ab, IgG, S ? <0.2 ?U ? <1.0 (Negative) ??WATER MECHANIC Ab, IgG, S ?<0.2 ?U ? <1.0 (Negative) ??Scl 70 Ab, IgG, S ? <0.2 ?U ? <1.0 (Negative) ??Jeanette 1 Ab, IgG, S ? <0.2 ?U ? <1.0 (Negative) ?Test Performed by: ?[facility] [address] ?[address] [place] [address] ?Cyanide Pot Tender: Jann Stern M.D. Ph.D.; CLIA# [id number] Specimen Anatomical Collection Method Collection Time Receive d Time (Source) Location / / Volume Laterality Blood specimen 05/01/2020 11:08 1 (specimen) AM EDT 12:52 PM EDT Resulting Agency Comment Spec In Lab Rachelle Duarte MD IMMUNOLOGY ORDERABLES Performing Organization Address City/State/ZIP Code [place] [address] (ABNORMAL) Complement, Total (05/01/2020 11:08 AM EDT) Analysis Performed At Patho logist Time Signature Complement >75 (H) 30 - 75 [facility] Total unit/mL [facility] LABORATORY Comment: Test Performed by: [facility] [address] [place], [place] [address] Cyanide Pot Tender: Jann Stern M.D. Ph. D.; CLIA# [id number] Specimen Anatomical Collection Method Collection Time Receive d Time (Source) Location / / Volume Laterality Blood specimen 05/01/2020 11:08 1 (specimen) AM EDT 12:41 PM EDT Resulting Agency Comment Spec In Lab Rachelle Duarte MD CHEMISTRY ORDERABLES Performing Organization Address City/State/[place] [address] C4 Complement (05/01/2020 11:08 AM EDT) P athologist Signature C4 Complement 26 10 - 40 JEANE SAMIA mg/dL [facility] LABORATORY Specimen Anatomical Collection Method Collection Time Receive d Time (Source) Location / / Volume Laterality Blood specimen 05/01/2020 11:08 1 (specimen) AM EDT 11:36 AM EDT Resulting Agency Comment Spec In Lab Rachelle Duarte MD CHEMISTRY ORDERABLES Performing Organization Address City/State/ZIP Code Phon e Number [address] C3 Complement (05/01/2020 11:08 AM EDT) P athologist Signature C3 Complement 158 90 - 180 [facility] LABORATORY Specimen Anatomical Collection Method Collection Time Receive d Time (Source) Location / / Volume Laterality Blood specimen 05/01/2020 11:08 1 (specimen) AM EDT 11:36 AM EDT Resulting Agency Comment Spec In Lab Rachelle Duarte MD CHEMISTRY ORDERABLES Performing Organization Address City/[facility]/ZIP Code Phon e Number [address] Cyclic Citrullinated Peptide (05/01/2020 11:08 AM EDT) P athologist Signature Anti-Cyc Cit <0.5 <=4.9 [facility] Peptide unit/mL [facility] LABORATORY Specimen Anatomical Collection Method Collection Time Receive d Time (Source) Location / / Volume Laterality Blood specimen 05/01/2020 11:08 1 (specimen) AM EDT 11:36 AM EDT Resulting Agency Comment Spec In Lab Rachelle Duarte MD CHEMISTRY ORDERABLES Performing Organization Address City/State/[place] [address] documented in this encounter Visit Diagnoses Diagnosis Other acute pericarditis documented in this encounter Care Teams Flocculator Operator Relationship Specialty Start Date End Date Nuzhat Garcia APRN PCP - General Family Medicine 04/01/20 [address] [facility] [address] [place] [address] [place] [address] documented as of this encounter
--- OUTSIDE RECORDS SUMMARY | 2021-09-01 01:25 | XMS_ITS | Encounter Summary ---
:1990 Author Organization [place] [address] Care Team Providers Name Role Phone Nuzhat Garcia APRN Primary Care Provider Encounter Details Date Type Department Care Team Description 05/20/2021 Telephone Rheumatology at [facility] Orquidea Mcmanus RN [facility] [place] [address] [place] [address] Social History Tobacco Use Types Packs/Day Years Used Date Never Smoker Smokeless Tobacco: Never Used Sex Assigned at Date Recorded Not on file documented as of this encounter Miscellaneous Notes Telephone Encounter - Orquidea Mcmanus RN - 05/20/2021 4:37 PM EDT Amina calls to advise she cancelled her appointment for tomorrow because she is sick. She is requesting we refill her medications because she is not able to get back in until end of August. Will checkwith provider and cue up if needed. Rachelle Duarte MD sent to Orquidea Mcmanus RN Caller: Unspecified (Yesterday, 10:25 AM) I refilled HCQ and colchicine, wasn't sure if this is what she meant. ??She can try cancellation list. ?? RTC and VM not set up yet. documented in this encounter Plan of Treatment Upcoming Encounters Date Type Specialty Care Team Description 11/04/2021 Office Visit Rheumatology Rachelle Duarte MD [facility] ER DR RHEUMATOLOGY [place], [place] [address] (Wo rk) documented as of this encounter Visit Diagnoses Not on filedocumented in this encounter Care Teams Practice Specialist Relationship Specialty Start Date End Date Nuzhat Garcia APRN PCP - General Family Medicine 04/01/[address] [facility] [place] [address] documented as of this encounter
--- OUTSIDE RECORDS SUMMARY | 2021-09-01 01:25 | XMS_ITS | Encounter Summary ---
:1990 Author Organization [facility] [place] [address] Care Team Providers Name Role Phone Nuzhat Garcia APRN Primary Care Provider Reason for Visit Reason Onset Date Comments Medication Refill 07/07/2021 Encounter Details Date Type Department Care Team Description 07/07/2021 Refill Rheumatology at [facility] [place]far[place] [address] Social History Tobacco Use Types Packs/Day Years Used Date Never Smoker Smokeless Tobacco: Never Used Sex Assigned at Date Recorded Not on file documented as of this encounter Miscellaneous Notes Telephone Encounter - Virginia Alfaro RN - 07/07/2021 4:28 PM EDT Refill Hydroxychloroquine requested at the new dose suggested by patient. Patient is in pain . The current RX is 200 mg but patient was under the understanding the prescription would be increased and a new RX would be sent to her pharmacy. Letter dated in February mentioned increased dose at that time due to inflammatory markers. Nurse will send prescription to Provider for consideration. documented in this encounter Plan of Treatment Upcoming Encounters Date Type Specialty Care Team Description 11/04/2021 Office Visit Rheumatology Rachelle Duarte MD [facility] DR RHEUMATOLOGY [place], [place] [address] (Wo rk) documented as of this encounter Visit Diagnoses Not on filedocumented in this encounter Care Teams Mine Environmental Engineer Relationship Specialty Start Date End Date Nuzhat Garcia APRN PCP - General Family Medicine 04/01/[address] [place] [address] documented as of this encounter
--- OUTSIDE RECORDS SUMMARY | 2021-09-01 01:25 | XMS_ITS | Encounter Summary ---
:1990 Author Organization [facility] [place] [address] Care Team Providers Name Role Phone Nuzhat Garcia APRN Primary Care Provider Encounter Details Date Type Department Care Team Description 02/19/2021 Office Visit Rheumatology at [facility] Rachelle Duarte Other acute pericarditis; [facility] MD [address] [place] [address] CENTER [phone] RHEUMATOLOGY DEPT. [place], [place] [address] Social History Tobacco Use Types Packs/Day Years Used Date Never Smoker Smokeless Tobacco: Never Used Sex Assigned at Date Recorded Not on file documented as of this encounter Last Filed Vital Signs Vital Sign Reading Time Taken Comments Blood Pressure 121/64 02/19/2021 11:13 AM EST Pulse 73 02/19/2021 11:13 AM EST Temperature 36.2 ??C (97.2 ??F) 02/19/2021 11:13 AM EST Respiratory Rate - - Oxygen Saturation 99% 02/19/2021 11:13 AM EST Inhaled Oxygen Concentration - - Weight 83.9 kg (185 lb) 02/19/2021 11:13 AM EST Height 157.5 cm (5' 2) 02/19/2021 11:13 AM EST Body Mass Index 33.84 02/19/2021 11:13 AM EST documented in this encounter Progress Notes Rachelle Duarte MD - 02/19/2021 11:30 AM EST F/u for history of pericarditis, now with evolving joint pain Cc: doing better HPI: She is doing better--the HCQ kicked in after about 2 months. Now only intermittent. No rashes. Gut ok. She has an eye exam scheduled for next month. Also has some ankle issues. She switched to child specialist and is very happy with this choice. Past: She awoke with a swollen wrist on Wednesday--sudden onset, no prior. She went ot the doctors, took some ibuprofen. The next day it started ot feel better. She stopped colchiine, steroids ibuprofen for the pericarditis a couple of months ago. She gets some chest pain after acitivtty. And wrist on the left side too, not as bad. She had an asymptomatic UTI in August--rx'd with antibiotics. She had a CTa couple of months ago for pain in her abdoen--? Was hernia. No f/c/s. Past: 29 yo woman with history of [...] a month FH:MA with RA PE: BP 121/64 Pulse 73 Temp 36.2 ??C (97.2 ??F) (Temporal) Ht 157.5 cm (5' 2) Wt 83.9 kg (185 lb) SpO2 99% BMI 33.84 kg/m?? Alert and pleasant in NAD Skin: no rashes Sclera anicteric, conjunctiva not injected Lungs: CTAB Heart RRR no mrgExt: no c/c/e pulses 2+ and symmetric at DP and radial R > L wrist warmth, mild swelling and tenderness Ankles with good ROM, some mild focal swelling Neuro: grossly non-focal Labs/studies: Labs from March [...] or aneurysm no other masses are noted. 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 She did have elevated inflammatory markers throughout this course although they seem to improve with treatment. In March of this year she had recurrent symptoms that were more right-sided and she continues on colchicine and ibuprofen with omeprazole added in. Work-up for underlying cause of. Carditis has been unrevealing. And we are asked to comment on whether thiscould be due to connective tissue disease. She had an excellent work-up prior to our initial visit for connective tissue disease related pericarditis. She has not had an aspiration to look for malignant cells. 90% of pericarditis is idiopathic and I would complete the work-up already started by her primary provider to see if there is evidence of immune activation, vasculitis, Sjogren's syndrome, serop ositive rheumatoid arthritis (rheumatoid factor was negative but I do not see an anti-CCP antibody) hepatitis C and thyroid disease--this was negative. She has been off treatment for the pericarditis for couple of months, presenting with joint swellingwhich is much more consistent with rheumatoid arthritis picture of the bilateral the right greater than left. Some response to ibuprofen but really seem to improve steroids. 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 Still with some stiffness in ankles and knees + MTP squeeze, wrist., although better not fully controlled Re assess inflammatory markers Continue HCQ 200mg bid, annual eye exam Colchicine and ibuprofen if needed for pericarditis sx--currently no recent flares F/u in 3 months Orders Placed This Encounter Procedures ??? Sedimentation rate ??? CRP, acute inflammation documented in this encounter Plan of Treatment Upcoming Encounters Date Type Specialty Care Team Description 11/04/2021 Office Visit Rheumatology Rachelle Duarte MD [facility] DR RHEUMATOLOGY [place], [place] [address] (Wo rk) Scheduled Orders Name Type Priority Associated Diagnoses Order S chedule Sedimentation rate Lab Routine Other acute p ericarditis Expected: 02/19/2021, Palindromic rheumatism Expir es: 02/20/2022 documented as of this encounter Procedures Procedure Name Priority Date/Time Associated Diagnosis Comme nts HC C-REACTIVE Routine 02/19/2021 12:15 Other acute Results fo r this PROTEIN PM EST pericarditis procedure are in Palindromic the results rheumatism section. HC Routine 02/19/2021 12:15 Other acute Results for this ESR-SEDIMENTATION PM EST pericarditis procedure are in RATE, BLOOD the results section. documented in this encounter Results (ABNORMAL) Sedimentation rate (02/19/2021 12:15 PM EST) P athologist Signature Sed Rate 68 (H) 2 - 37 [facility] mm/hr [facility] Comment: Effective January 25, [...] Duarte MD HEMATOLOGY ORDERABLES Performing Organization Address City/[facility]/ZIP Code Phon e Number [address] (ABNORMAL) CRP, acute inflammation (02/19/2021 12:15 PM EST) athologist Signature CRP 13.0 (H) <=4.9 mg/L 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
--- OUTSIDE RECORDS SUMMARY | 2021-09-01 01:25 | XMS_ITS | Encounter Summary ---
:1990 Author Organization [facility] [place] [address] Care Team Providers Name Role Phone Nuzhat Garcia APRN Primary Care Provider Encounter Details Date Type Department Care Team Description 11/06/2020 Office Visit Rheumatology at [facility] Rachelle Duarte acute pericarditis; [facility] MD Carlos [place] [address] CENTER [phone] R[address] [place] [address] Social History Tobacco Use Types Packs/Day Years Used Date Never Smoker Smokeless Tobacco: Never Used Sex Assigned at Date Recorded Not on file documented as of this encounter Last Filed Vital Signs Vital Sign Reading Time Taken Comments Blood Pressure 114/76 11/06/2020 12:44 PM EDT Pulse 85 11/06/2020 12:44 PM EDT Temperature 36.7 ??C (98.1 ??F) 11/06/2020 12:44 PM EDT Respiratory Rate - - Oxygen Saturation 98% 11/06/2020 12:44 PM EDT Inhaled Oxygen Concentration - - Weight 88 kg (194 lb) 11/06/2020 12:44 PM EDT Height 157.5 cm (5' 2) 11/06/2020 12:44 PM EDT Body Mass Index 35.48 11/06/2020 12:44 PM EDT documented in this encounter Patient Instructions Patient InstructionsRachelle Duarte MD - 11/06/2020 1:00 PM EDT Palindromic rheumatism (a version of RA) documented in this encounter Progress Notes Rachelle Duarte MD - 11/06/2020 1:00 PM EDT F/u for history of pericarditis, now with evolving joint pain Cc: wrist swelling HPI: She awoke with a swollen wrist on Wednesday--sudden onset, no prior. She went ot the doctors, tooksome ibuprofen. The next day it started ot feel better. She stopped colchiine, steroids ibuprofen for the pericarditis a couple of months ago. She gets some chest pain after acitivtty. And wrist on theleft side too, not as bad. She had an asymptomatic UTI in August--rx'd with antibiotics. She had a CT a couple of months ago for pain in [...] she has a history of sections In 2013 in 2016 SH: Works in a kitchen She has never been a smoker and she drinks alcohol a few times a month FH:MA with RA PE: BP 114/76 Pulse 85 Temp 36.7 ??C (98.1 ??F) (Temporal) Ht 157.5 cm (5' 2) Wt 88 kg (194lb) SpO2 98% BMI 35.48 kg/m?? Alert and pleasant in NAD Skin: no rashes Sclera anicteric, conjunctiva not injected Lungs: CTAB Heart RRR no mrg Abd: Active bs, soft, nt, nd no masses or organomegaly appreciated Ext: no c/c/e pulses 2+ and symmetric at DP and radial R > L wrist warmth, mild swelling and tenderness Neuro: grossly non-focal Labs/studies: Labs from March [...] for the pericarditis for couple of months, nurse presenting with joint swelling which is much more consistent with rheumatoid arthritis picture of the bilateral the right greater than left. Some response to ibuprofen but really seem to improve steroids. 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 Discussed risks and benefits of hydroxychloroquine including need for eye exams and that it takes several months to work. F/u in 3 months documented in this encounter Plan of Treatment Upcoming Encounters Date Type Specialty Care Team Description 11/04/2021 Office Visit Rheumatology Rachelle Duarte MD [facility] [address] RHEUMATOLOGY [place], [place] [address] (Wo rk) documented as of this encounter Visit Diagnoses Diagnosis Other acute pericarditis Palindromic rheumatism Palindromic rheumatism, site unspecified documented in this encounter Care Teams Pay Agent Relationship Specialty Start Date End Date Nuzhat Garcia APRN PCP - General Family Medicine 04/01/[address] [place], [place] [address]Y [address] [place] [address] documented as of this encounter
--- OUTSIDE RECORDS SUMMARY | 2021-09-01 01:25 | XMS_ITS | Encounter Summary ---
:1990 Author Organization [facility] [place] [address] Care Team Providers Name Role Phone Nuzhat Garcia APRN Primary Care Provider Reason for Visit Reason Onset Date Comments Prior Authorization 02/20/2021 Encounter Details Date Type Department Care Team Description 02/20/2021 Telephone [place] [facility] [place] [address] Social History Tobacco Use Types Packs/Day Years Used Date Never Smoker Smokeless Tobacco: Never Used Sex Assigned at Date Recorded Not on file documented as of this encounter Miscellaneous Notes Telephone Encounter - Erika Briceno - 03/21/2021 2:52 PM EST Re-submitted Telephone Encounter - Erika Briceno - 02/20/2021 7:57 AM EST Images from the original note were not included. Medication Prior Authorization Felicia Medication name/dose/directions: Colchicine 0.6mg capsules - once daily Rationale for request: Pericarditis Health plan: [place] Medicaid ([facility]LY [facility]) Authorizing sales and service representative name: Jessy Sent to health plan on: 02/20/21 Health plan decision: Denied Quantity approved: Authorization number: [id number] Start date: End date: documented in this encounter Plan of Treatment Upcoming Encounters Date Type Specialty Care Team Description 11/04/2021 Office Visit Rheumatology Rachelle Duarte MD [facility] RHEUMATOLOGY [place], [place] [address] (Wo rk) documented as of this encounter Visit Diagnoses Not on filedocumented in this encounter Care Teams Industrial Mechanic Relationship Specialty Start Date End Date Nuzhat Garcia APRN PCP - General Family Medicine 04/01/[address] [place] [address] documented as of this encounter
--- OUTSIDE RECORDS SUMMARY | 2021-09-01 01:25 | XMS_ITS | Encounter Summary ---
:1990 Author Organization [facility] [place] [address] Care Team Providers Name Role Phone Nuzhat Garcia APRN Primary Care Provider Reason for Visit Reason Onset Date Comments Other 08/21/2020 Encounter Details Date Type Department Care Team Description 08/21/2020 Telephone Rheumatology at [facility] Meet [facility]handari RN [facility] [place] [address] Social History Tobacco Use Types Packs/Day Years Used Date Never Smoker Smokeless Tobacco: Never Used Sex Assigned at Date Recorded Not on file documented as of this encounter Miscellaneous Notes Telephone Encounter - Meet Bhandari RN - 08/21/2020 10:14 AM EDT Amina called the audio visual secretary line returning my call, she would like to trial the Prednisone 5 mg bymouth daily, send to [place] Telephone Encounter - Meet Bhandari RN - 08/21/2020 10:04 AM EDT , Renetta Gonzalez MD sent to P [facility] Rheumatology Nurse Tn, Can you please call her and let her know the inflammatory markers are elevated. I would recommend ??atrial of prednisone 5mg daily to see how she does. ??If she agrees will write the rx. ??Thanks. renetta I tried to call her, but vm is not set up. documented in this encounter Plan of Treatment Upcoming Encounters Date Type Specialty Care Team Description 11/04/2021 Office Visit Rheumatology Renetta Duarte MD [facility] ER RHEUMATOLOGY [place], [place] [address] (Wo rk) documented as of this encounter Visit Diagnoses Not on filedocumented in this encounter Care Teams Manager Personnel Selection Relationship Specialty Start Date End Date Nuzhat Garcia APRN PCP - General Family Medicine 04/01/[address] [place] [address] [address] [place] [address] documented as of this encounter
--- OUTSIDE RECORDS SUMMARY | 2021-09-01 01:25 | XMS_ITS | Clinical Summary ---
:1990 Author Organization [facility] [place] [address] Care Team Providers Name Role Phone Nuzhat Garcia APRN Primary Care Provider Allergies Active Allergy Reactions Severity Noted Date Comments Naproxen Nausea And Vomiting 05/01/2020 Sulfa (Sulfonamide Antibiotics) Nausea And Vomiting Medications Medication Sig Dispensed Refills Start Date End Date Status ibuprofen (Advil;Motrin) 0 04/01/2020 Active 600 mg Tablet omeprazole (PriLOSEC) 20 Take 20 mg by 0 04/01/2020 Active mg Capsule, Delayed mouth daily. Release(E.C.) hydrOXYchloroQUINE Take 1 tablet 60 tablet 12 05/20/2021 Active (Plaquenil) 200 mg Tablet by mouth 2 times daily. colchicine (Colcrys) 0.6 Take 1 tablet 60 tablet 3 05/28/2021 Active mg Tablet by mouth daily. Active Problems No known active problems Encounters Date Type Specialty Care Team Description 07/07/2021 Refill Rheumatology Virginia Alfaro RN 07/01/2021 Telephone Rheumatology Gabi Dangelo from Last 3 Months Social History Tobacco Use Types Packs/Day Years Used Date Never Smoker Smokeless Tobacco: Never Used Sex Assigned at Date Recorded Not on file Last Filed Vital Signs Vital Sign Reading Time Taken Comments Blood Pressure 121/64 02/19/2021 11:13 AM EST Pulse 73 02/19/2021 11:13 AM EST Temperature 36.2 ??C (97.2 ??F) 02/19/2021 11:13 AM EST Respiratory Rate 18 05/01/2020 9:17 AM EDT Oxygen Saturation 99% 02/19/2021 11:13 AM EST Inhaled Oxygen Concentration - - Weight 83.9 kg (185 lb) 02/19/2021 11:13 AM EST Height 157.5 cm (5' 2) 02/19/2021 11:13 AM EST Body Mass Index 33.84 02/19/2021 11:13 AM EST Plan of Treatment Upcoming Encounters Date Type Specialty Care Team Description 11/04/2021 Office Visit Rheumatology Rachelle Duarte MD [facility] [address] RHEUMATOLOGY [facility], [place] [address] (Wo rk) Health Maintenance Due Date Last Done Comments Covid-19 Vaccine (#1) 1994 HIV screen 07/07/2007 Lipid Screening 07/07/2007 Tdap adult 2008 Tetanus vaccine 2008 HPV test 07/07/2019 PAP Smear 07/07/2019 Influenza (Flu) vaccine (1 of - Influenza standard 10/16/2021 series) Hepatitis C Screening Completed 05/01/2020 Insurance Payer Benefit Plan / Subscriber ID Effective Dates Phone Addre ss Type Group [place] [id number] 2020-Prese [phone] [address] [place], [place] [id number] Guarantor Name Account Type Relation to Date of Phone Bill ing Patient Address Amina Jones Personal/Family Self [address] (Home) [address] [place] [address] Care Teams Single Stroke Preformer Relationship Specialty Start Date End Date Nuzhat Garcia APRN PCP - General Family Medicine 04/01/[address] [place], [place] [id number]
--- OUTSIDE RECORDS SUMMARY | 2021-09-01 01:25 | XMS_ITS | Encounter Summary ---
:1990 Author Organization [facility] [place] [address] Care Team Providers Name Role Phone Nuzhat Garcia APRN Primary Care Provider Encounter Details Date Type Department Care Team Description 05/28/2021 Orders Only Rheumatology at [facility] Rachelle Duarte MD [facility] [place] [address] RHEUMATOLOGY DEPT. [phone] [place], [place] [address] (Wo rk) Social History Tobacco Use Types Packs/Day Years Used Date Never Smoker Smokeless Tobacco: Never Used Sex Assigned at Date Recorded Not on file documented as of this encounter Plan of Treatment Upcoming Encounters Date Type Specialty Care Team Description 11/04/2021 Office Visit Rheumatology Rachelle Duarte MD [facility] ER RHEUMATOLOGY [place], [place] [address] (Wo rk) documented as of this encounter Visit Diagnoses Not on filedocumented in this encounter Care Teams Owner Oral Surgeon Relationship Specialty Start Date End Date Nuzhat Garcia APRN PCP - General Family Medicine 04/01/[address] [place], [place] [id number] documented as of this encounter
--- OUTSIDE RECORDS SUMMARY | 2021-09-01 01:26 | XMS_ITS | Encounter Summary ---
:1990 Author Organization [facility] Address [address] [place] [address] Care Team Providers Name Role Phone Unknown, Provider Primary Care Provider Encounter Details Date Type Department Care Team Description 10/30/2020 Lab Requisition [facility] Outr Resulting Lab, Pathology & Laboratory Provider [facility] [address] [place], [place] [id number] Social History Tobacco Use Types Packs/Day Years Used Date Never Smoker Smokeless Tobacco: Never Used Alcohol Use Standard Drinks/Week Comments Yes 0 (1 standard drink = 0.6 oz pure alcoho l) Rare Alcohol Habits Answer Date Recorded How often do you have a drink containing alcohol? Not asked How many drinks containing alcohol do you have on a typical Not asked day when you are drinking? How often do you have six or more drinks on one occasion? No t asked Comment: Rare 02/16/2011 Sex Assigned at Date Recorded Not on file documented as of this encounter Plan of Treatment Not on filedocumented as of this encounter Procedures Procedure Name Priority Date/Time Associated Diagnosis Comme nts HOLD SST Today 10/29/2020 15:47 Results for this EDT procedure are i n the results section. LYME AB Today 10/29/2020 15:47 Results for this EDT procedure are i n the results section. RHEUMATOID FACTOR Today 10/29/2020 15:47 Result s for this EDT procedure are i n the results section. documented in this encounter Results HOLD SST (10/29/2020 15:47 EDT) Pathologist Sig nature Hold Hold [facility] Specimen Blood - Venous blood (substance) Performing Organization Address City/State/ZIP Code Phon e Number [facility] [address] [place] [address] SERVICES LYME AB (10/29/2020 15:47 EDT) Pathologist Sig nature Lyme Ab Negative Negative [facility] Specimen Blood - Venous blood (substance) Performing Organization Address City/State/ZIP Code Phon e Number [facility] [address] [place] [address] SERVICES RHEUMATOID FACTOR (10/29/2020 15:47 EDT) Pathologist Sig nature Rheumatoid Factor <8.6 <12.0 IU/mL [facility] SERVICES Specimen Blood - Venous blood (substance) Performing Organization Address City/[facility]/ZIP Code Phon e Number [facility] [address] [place] [address] SERVICES documented in this encounter Visit Diagnoses Not on filedocumented in this encounter Care Teams Family Intervention Specialist Relationship Specialty Start Date End Date Unknown, Provider, PCP - General 01/12/11 documented as of this encounter
--- OUTSIDE RECORDS SUMMARY | 2021-09-01 01:26 | XMS_ITS | Encounter Summary ---
:1990 Author Organization [facility] Address [address] [place] [address] Care Team Providers Name Role Phone Unknown, Provider Primary Care Provider Encounter Details Date Type Department Care Team Description 11/21/2019 Lab Requisition [facility] Nuzhat Garcia E ncounter for other Pathology & ANCHOR TACKER general examination Laboratory Medicine [address] [place] [address] [address] [place] [id number] [phone] Social History Tobacco Use Types Packs/Day Years [...] encounter Procedures Procedure Name Priority Date/Time Associated Comments Diagnosis PAP TEST Today 11/17/2019 13:30 Encounter for other Resu lts for this EDT general examination procedur e are in the results section. HUMAN PAPILLOMAVIRUS Today 11/17/2019 13:30 Encounter for ot her Results for this (HPV) DETECTION-HIGH EDT general examination procedure are in RISK TYPES the results section. documented in this encounter Results HUMAN PAPILLOMAVIRUS (HPV) DETECTION-HIGH RISK TYPES (11/17/2019 13:30 EDT) Human Papillomavirus NegativeComment: No Negative [facility] MEDICAL (HPV) Detection-High E6 or E7 mRNA is CENTER LABORATOR Y Types detected from HPV SERVICES types 16,18,31,33,35,39,45 ,51,52,56,58,59,66, and 68 by convict guard mediated amplification. Specimen Pap Test - Cervix and/or Endocervix Performing Organization Address City/[facility] [address]/ZIP [facility] Phon e Number [facility] [address] [place] [address] SERVICES PAP TEST (11/17/2019 13:30 EDT) Specimens A. Cervix and/or [facility] MEDICAL Endocervix , ThinPrep CENTER Imaging System with LABORATORY Manual Evaluation SERVICES Specimen Adequacy Satisfactory for [facility] MEDICAL Evaluation - CENTER transformation zone LABORATORY component present SERVICES General Negative for [facility] intraepithelial CENTER lesion or malignancy LABORATORY SERVICES Attestation . [facility] Electronically CENTER signed by Elisa sabillon, LABORATORY RHIANNON Linda( CP) SERVICES on 11/29/2019 a t 1535 Clinical History See below [facility] SERVICES HPV The result for the Human Pap illomavirus (HPV) Detection-High Risk Types is Negative. No E6 or E7 mRNA is detected from HPV types 16,18,31,33,35,39,45,51,52,56,58,59,66, and 68 by convict guard mediated [facility] MEDICAL amplification.Testing was pe rformed on specimen [id number] and was resulted on 11/29/2019 1523 EDT by ANY, LAB INSTRUMENT RESULTS IN [facility] SERVICES Performing Lab [facility] LAB [facility] SERVICES Scanned Images [facility] SERVICES Specimen Pap Test - Cervix and/or Endocervix Performing Organization Address City/[facility] [address]/ZIP Code Phon e Number [facility] [address] [place] [address] SERVICES documented in this encounter Visit Diagnoses Diagnosis Encounter for other general examination documented in this encounter Care Teams Packaging Technician Relationship Specialty Start Date End Date Unknown, Provider, PCP - General 01/12/11 documented as of this encounter
--- OUTSIDE RECORDS SUMMARY | 2021-09-01 01:26 | XMS_ITS | Encounter Summary ---
:1990 Author Organization [facility] Address [address] [place] [address] Care Team Providers Name Role Phone Unknown, Provider Primary Care Provider Encounter Details Date Type Department Care Team Description 08/03/2016 Results Only [facility] Meenu Lanier NP [phone] [place] [address] [place] [address] (Wo rk) Social History Tobacco Use Types [...] Name Priority Date/Time Associated Diagnosis Comme nts PAP TEST- RESULT Routine 08/03/2016 0:00 EDT Resu lts for this ONLY procedure are i n the results section. documented in this encounter Results PAP TEST- RESULT ONLY (08/03/2016 0:00 EDT) Pathology Report: CYTOPATHOLOGY REPORT [facility] Reports generated via electronic interface contain scott ginal data; SERVICES however they are lacking the format of the original re port. Caution should be taken when reading/interpreting unfo rmatted reports. Name: ? SORIN MAJOR ? Accession #: ? [id number] : ? 1990 (Age: [age]) ??F ?Collect Date: ? 08/03 Location: ? [facility] ? Receive Date : ? 08/05/2016 Provider: ?MEENU JACOME TOOLMAKER GRADE THREE Copy to: ? Specimen/Source: ? Pap Test, Cervix, ThinPrep Imaging System with manual evaluation Last Menstrual Period: ? 07/14/2016 Hormonal/Contraceptive Status: ? None Other: ? Digital Communications Manager Clinical/Treatment Hx - None ? SPECIMEN ADEQUACY ? Satisfactory for Evaluation - transformation zone component present GENERAL CATEGORIZATION ? Negative for Intraepithelial Lesion or Malignan cy INTERPRETATION ? Fungal organisms pres ent morphologically consistent with Kasey species. ? Document reviewed and electronically signed by: ? RHIANNON Rangel(ASCP) ? Report Date: ??08/14/2016 13:58 End of Report Specimen Performing Organization Address City/State/ZIP Code Phon e Number [facility] [address] [place] [id number] SERVICES documented in this encounter Visit Diagnoses Not on filedocumented in this encounter Care Teams Paper Cutter Operator Relationship Specialty Start Date End Date Unknown, Provider, PCP - General 01/12/11 documented as of this encounter
--- OUTSIDE RECORDS SUMMARY | 2021-09-01 01:26 | XMS_ITS | Encounter Summary ---
:1990 Author Organization [facility] Address [address] [place] [address] Care Team Providers Name Role Phone Unknown, Provider Primary Care Provider Encounter Details Date Type Department Care Team Description 12/05/2012 Results Only [facility] Donald Angel, [facility] Laboratory Services - [address] Trei Sierra [address] [address] [place] [address] [phone] Social History Tobacco Use Types Packs/Day Years [...] Diagnosis Comme nts PAP TEST- RESULT Routine 12/05/2012 0:00 EDT Resu lts for this ONLY procedure are i n the results section. documented in this encounter Results PAP TEST- RESULT ONLY (12/05/2012 0:00 EDT) Pathology Report: CYTOPATHOLOGY REPORT [facility] Reports generated via electronic interface contain scott ginal data; however they are lacking the format of the original re port. Caution should be taken when reading/interpreting unfo rmatted reports. Name: ? SORIN MAJOR ? Accession #: ? [id number] : ? 1990 (Age: 22) ??F ?Collect Date: ? 11/16 Location: ? [facility] ? Receive Date : ? 12/06/2012 Provider: ?SUJATA ANGEL MASTER OCEAN Copy to: ?MEREDITH QUEZADA MD ? Specimen/Source: ? Pap Test, Cervix/Endocervix, ThinPrep Imaging System with manual evaluation Last Menstrual Period: ? 11/10/12 ? SPECIMEN ADEQUACY ? Satisfactory for Evaluation - transformation zone component present GENERAL CATEGORIZATION ? Negative for Intraepithelial Lesion or Malignan cy ? Document reviewed and electronically signed by: ? RHIANNON Golden(ASCP) ? Report Date: ??12/12/2012 10:12 End of Report Specimen Performing Organization Address City/State/ZIP Code Phon e Number [facility] [address] [place] [address] SERVICES [facility] [address] [place] [address] documented in this encounter Visit Diagnoses Not on filedocumented in this encounter Care Teams Audiology Director Relationship Specialty Start Date End Date Unknown, Provider, PCP - General 01/12/11 documented as of this encounter
--- OUTSIDE RECORDS SUMMARY | 2021-09-01 01:26 | XMS_ITS | Encounter Summary ---
:1990 Author Organization [facility] Address [address] [place] [address] Care Team Providers Name Role Phone Md BENJA Nance Primary Care Provider Unavailable Encounter Details Date Type Department Care Team Description 06/25/2009 Results Only [facility] Ray Arteaga MD Laboratory Services - [address] [place] [address] [address] [facility] [place] [address] [phone] Social History Tobacco Use Types Packs/Day Years Used Date Never Assessed Sex Assigned at Date Recorded Not on file documented as of this encounter Plan of Treatment Not on filedocumented as of this encounter Procedures Procedure Name Priority Date/Time Associated Diagnosis Comme [facility] CYTOPATHOLOGY Routine 06/25/2009 0:00 EDT Results for this procedure are i n the results section . documented in this encounter Results CYTOPATHOLOGY (06/25/2009 0:00 EDT) Pathology Report: CYTOPATHOLOGY REPORT ? [facility] Reports generated via Zannel interface contain original data; ? however they are lacking the format of the original report. ? Caution should be taken when reading/interpreting unformatted reports. ? Name: ? SORIN MAJOR ? Accession #: ? [id number] ? : ? 1990 (Age: 18) ??F ?Collect Date: ? 06/25/2009 ? Location: ? [facility] ? Receive Date: ? 06/27/2009 ? Provider: ?RAY J ROS SMAN MD ? Copy to: ? Specimen/Source: ? Pap Test, Cervix/Endocervix, ThinPrep Imaging System ? with manual evaluation ? Last Menstrual Period: ? 3/18/10 ? Menstrual/ Status: ? Other: ? HPVA - HPV testing requested if ASC-US on the current ThinPrep Pap test. ? SPECIMEN ADEQUACY ? Satisfactory for Eval uation ? - transformation zone compon ent present ? GENERAL CATEGORIZATION ? Negative for Intraepi thelial Lesion or Malignancy ? INTERPRETATION ? Shift in crystal presen t suggestive of bacterial vaginosis. ? Document reviewed and electr onically signed by: ? Marcia Rivera, CT( CP)(IAC) ? Report Date: ??05/19/ 2010 11:51 ? End of Report ? Specimen Performing Organization Address City/State/ZIP Code Phon e Number [facility] [address] [place] [address] SERVICES [facility] [address] [place] [address] documented in this encounter Visit Diagnoses Not on filedocumented in this encounter Care Teams Hydroelectric Plant Operator Relationship Specialty Start Date End Date Md Nance MD PCP - General 06/27/09 01/11/11 documented as of this encounter
--- OUTSIDE RECORDS SUMMARY | 2021-09-01 01:26 | XMS_ITS | Encounter Summary ---
:1990 Author Organization [facility] Address [address] [place] [address] Care Team Providers Name Role Phone Md BENJA Nance Primary Care Provider Unavailable Encounter Details Date Type Department Care Team Description 08/04/2010 Results Only [facility] Gina Cannon MD Laboratory Services - [address],[place] [address] [address] [place] [phone] (Wo rk) Social History Tobacco Use Types Packs/Day Years Used Date Never Assessed Sex Assigned at Date Recorded Not on file documented as of this encounter Plan of Treatment Not on filedocumented as of this encounter Procedures Procedure Name Priority Date/Time Associated Diagnosis Comme nts PAP TEST- RESULT Routine 08/04/2010 0:00 EDT Resu lts for this ONLY procedure are i n the results section. documented in this encounter Results PAP TEST- RESULT ONLY (08/04/2010 0:00 EDT) Pathology Report: CYTOPATHOLOGY REPORT ? [facility] Reports generated via electr onic interface contain original data; ? however they are lacking the format of the original report. ? Caution should be taken when reading/interpreting unformatted reports. ? Name: ? SORIN MAJOR ? Accession #: ? [id number] ? : ? 1990 (Age: 20) ??F ?Collect Date: ? 08/04/2010 ? Location: ? [facility] ? Receive Date: ? 08/05/2010 ? Provider: ?GANICKIN B T HOMAS MD ? Copy to: ? Specimen/Source: ? Pap Test, Cervix/Endocervix, ThinPrep Imaging System ? with manual evaluation ? Last Menstrual Period: ? 07/17/2010 ? Hormonal/Contraceptive Statu s: ? Yes: Orthe evra patch ? SPECIMEN ADEQUACY ? Satisfactory for Eval uation ? - transformation zone compon ent present ? - scant squamous epithelial component secondary to excessive inflammation ? GENERAL CATEGORIZATION ? Negative for Intraepi thelial Lesion or Malignancy ? INTERPRETATION ? Reactive cellular saji nges associated with inflammation present (includes ?? repair). ? Shift in crystal present sugge stive of bacterial vaginosis. ? Document reviewed and electr onically signed by: ? GLADWYN LEIMAN MBBCh ? Report Date: ??07/01/ 2011 16:33 ? End of Report ? Specimen Performing Organization Address City/State/ZIP Code Phon e Number [facility] [address] [place] [address] SERVICES [facility] [address] [place] [address] documented in this encounter Visit Diagnoses Not on filedocumented in this encounter Care Teams Poultry Cleaner Relationship Specialty Start Date End Date Md Nance MD PCP - General 06/27/09 01/11/11 documented as of this encounter
--- OUTSIDE RECORDS SUMMARY | 2021-09-01 01:26 | XMS_ITS | Encounter Summary ---
:1990 Author Organization [facility] Address [address] [place] [address] Care Team Providers Name Role Phone Unknown, Provider Primary Care Provider Encounter Details Date Type Department Care Team Description 11/18/[address] [facility] Outr Resulting Lab, Pathology & Laboratory Provider [facility] [address] [place] [address] Social History Tobacco Use Types Packs/Day Years [...] Procedure Name Priority Date/Time Associated Comments Diagnosis HIGH SENSITIVITY Routine 11/17/2019 14:10 Results for this C-REACTIVE PROTEIN EDT procedure are in (CARDIOVASCULAR the results DISEASE) section. documented in this encounter Results HIGH SENSITIVITY C-REACTIVE PROTEIN (CARDIOVASCULAR DISEASE) (11/17/2019 14:10 EDT) High Sensitivity 5.73 See Note [facility] CRP Comment: mg/L [facility]ENTER LABORATORY Reference Range: SERVICES ??Source: [employer] [place] [employer] Clinical Practice Recommendations, 2003 ??Low Risk: ? <1.0 mg/L ??Average Risk: ?? 1.0 - 3.0 mg/L ??High Risk: ?>3.0 mg/L ??Indeterminate*: >10.0 mg/L ??*May be an indication of another source of inflamma tion or infection Specimen Blood - Venous blood (substance) Performing Organization Address City/State/ZIP Code Phon e Number [facility] [address] [place] [phone] SERVICES documented in this encounter Visit Diagnoses Not on filedocumented in this encounter Care Teams Stamp Analyst Relationship Specialty Start Date End Date Unknown, Provider, PCP - General 01/12/11 documented as of this encounter
--- OUTSIDE RECORDS SUMMARY | 2021-09-01 01:26 | XMS_ITS | Encounter Summary ---
:1990 Author Organization [facility] Address [address] [place] [address] Care Team Providers Name Role Phone Unknown, Provider Primary Care Provider Encounter Details Date Type Department Care Team Description 09/05/2019 Lab Requisition [facility] Outr Resulting Lab, Pathology & Laboratory Provider [facility] [address] [place] [address] Social History Tobacco Use Types Packs/Day Years Used Date Never Assessed Sex Assigned at Date Recorded Not on file documented as of this encounter Plan of Treatment Not on filedocumented as of this encounter Procedures Procedure Name Priority Date/Time Associated Comments Diagnosis RHEUMATOID FACTOR Routine 09/05/2019 8:50 Results for this EDT procedure are i n the results section. HIGH SENSITIVITY Routine 09/05/2019 8:50 Results for this C-REACTIVE PROTEIN EDT procedure are in (CARDIOVASCULAR the results DISEASE) section. ANTI NUCLEAR AB Routine 09/05/2019 8:50 Results f or this (CHRISTINE), IFA EDT procedure are i n the results section. documented in this encounter Results RHEUMATOID FACTOR (09/05/2019 8:50 EDT) Pathologist Sig nature Rheumatoid Factor <8.6 <12.0 IU/mL [facility] SERVICES Specimen Blood - Venous blood (substance) Performing Organization Address City/State/ZIP Code Phon e Number [facility] [address] [place] [address] SERVICES ANTI NUCLEAR AB (CHRISTINE), IFA (09/05/2019 8:50 EDT) Pathologist Sig nature CHRISTINE Interpretation Negative Negative [facility] SERVICES Specimen Blood - Venous blood (substance) Narrative [facility] - 09/06/2019 15:01 EDT Results were obtained with the Digital GuardianVA NOV A Lite HEp-2 CHRISTINE Kit by indirect immunofluorescence. Performing Organization Address City/State/[facility] Code Phon e Number [facility] [address] [place] [address] SERVICES HIGH SENSITIVITY C-REACTIVE PROTEIN (CARDIOVASCULAR DISEASE) (09/05/2019 8:50 EDT) High Sensitivity 2.24 See Note [facility] CRP Comment: mg/L [facility] Reference Range: ??Source: The [place] [employer] Clinical Practice Recommendations, 2003 ??Low Risk: ? <1.0 mg/L ??Average Risk: ?? 1.0 - 3.0 mg/L ??High Risk: ?>3.0 mg/L ??Indeterminate*: >10.0 mg/L ??*May be an indication of another source of inflamma tion or infection Specimen Blood - Venous blood (substance) Performing Organization Address City/[facility] Code Phon e Number [facility] [address] [place] [address] SERVICES documented in this encounter Visit Diagnoses Not on filedocumented in this encounter Care Teams Web Designer Developer Relationship Specialty Start Date End Date Unknown, Provider, PCP - General 01/12/11 documented as of this encounter
--- OUTSIDE RECORDS SUMMARY | 2021-09-01 01:26 | XMS_ITS | Encounter Summary ---
:1990 Author Organization [facility] Address [address] [place] [address] Care Team Providers Name Role Phone Unknown, Provider Primary Care Provider Encounter Details Date Type Department Care Team Description 04/01/2020 Lab Requisition [facility] Outr Resulting Lab, Pathology & Laboratory Provider [facility] [address] [place] [address] Social History Tobacco Use Types [...] Procedure Name Priority Date/Time Associated Comments Diagnosis SPEP, INCLUDES Today 04/01/2020 8:41 Results fo r this QUANTITATION OF EST procedure ar e in MONOCLONAL SPIKE the results PERFORMABLE section. ANTI DNA (DOUBLE Routine 04/01/2020 8:41 Results for this STRANDED) EST procedure are i n the results section. HIGH SENSITIVITY Routine 04/01/2020 8:41 Results for this C-REACTIVE PROTEIN EST procedure are in (CARDIOVASCULAR the results DISEASE) section. ANTI NUCLEAR AB Routine 04/01/2020 8:41 Results f or this (CHRISTINE), IFA EST procedure are i n the results section. SPEP, INCLUDES Routine 04/01/2020 8:41 Results fo r this QUANTITATION OF EST procedure ar e in MONOCLONAL SPIKE the results section. PROTEIN, TOTAL Today 04/01/2020 8:41 EST documented in this encounter Results (ABNORMAL) SPEP, INCLUDES QUANTITATION OF MONOCLONAL SPIKE PERFORMABLE (04/01/2020 8:41 EST) Pathologist [facility] Albumin % 57.7 55.8 - 66.1 % [facility] LABORATORY SERVICES Alpha-1 % 4.3 2.9 - 4.9 % [facility] LABORATORY SERVICES Alpha-2 % 12.0 (H) 7.1 - 11.8 % [facility]ORY SERVICES Beta % 12.7 8.4 - 13.1 % [facility] SERVICES Gamma % 13.3 11.1 - 18.8 % [facility]ORY SERVICES SPEP Comment No apparent [facility] monoclonal protein LABORATORY SERVICES seen on serum electrophoresisComm ent: See scanned/supplementa ry report. Total Protein 6.7 6.3 - 8.2 g/dL [facility]ORATORY SERVICES Specimen Blood - Venous blood (substance) Narrative This result has an attachment that is no t available. Performing Organization Address City/[facility]/ZIP [facility] Phon e Number [facility]ORY [address] [place] [address] SERVICES PROTEIN, TOTAL (04/01/2020 8:41 EST) Specimen Blood - Venous blood (substance) Performing Organization Address [facility]/ZIP [facility] Phon e Number [facility] [address] [place] [address] SERVICES ANTI DNA (DOUBLE STRANDED) (04/01/2020 8:41 EST) Pathologist [facility] Anti-DNA (Double <12.3 <30.0 IU/mL [facility] Stranded) Comment: LABORATORY ? SERV ICES ? Negative: ??<30.0 IU/mL ? Borderline Positive: ??30.0 - 75.0 IU/mL ? Positive: ??>75.0 IU/mL Results were obtained with francisco javier martines SceneShotA SplashCaste dsDNA SC MELONY assay on the [id number]. Specimen Blood - Venous blood (substance) Performing Organization Address City/State/ZIP Code Phon e Number [facility] LABORATORY [address] [place] [address] SERVICES ANTI NUCLEAR AB (CHRISTINE), IFA (04/01/2020 8:41 EST) CHRISTINE Interpretation NegativeComment: Negative [facility] No titer LABORATORY SERVICES performed, CHRISTINE Screen is negative. Specimen Blood - Venous blood (substance) Narrative [facility] LABORATORY SERVICES - 04/02/2020 15:44 EST Results were obtained with the AivoVA NOV A Lite HEp-2 CHRISTINE Kit by indirect immunofluorescence. Performing Organization Address City/[facility] Phon e Number [facility] LABORATORY [address] [place] [address] SERVICES HIGH SENSITIVITY C-REACTIVE PROTEIN (CARDIOVASCULAR DISEASE) (04/01/2020 8:41 EST) Pathologist [facility] High Sensitivity 2.93 See Note [facility] CRP Comment: mg/L CENTER LABORATORY Reference Range: SERVICES ??Source: [employer] Clinical Practice Recommendations, 2003 ??Low Risk: ? <1.0 mg/L ??Average Risk: ?? 1.0 - 3.0 mg/L ??High Risk: ?>3.0 mg/L ??Indeterminate*: >10.0 mg/L ??*May be an indication of another source of inflamma tion or infection Specimen Blood - Venous blood (substance) Performing Organization Address City/[facility] Code Phon e Number [facility] LABORATORY [address] [place] [address] SERVICES documented in this encounter Visit Diagnoses Not on filedocumented in this encounter Care Teams Warehouse Operator Relationship Specialty Start Date End Date Unknown, Provider, PCP - General 01/12/11 documented as of this encounter
--- OUTSIDE RECORDS SUMMARY | 2021-09-01 01:26 | XMS_ITS | Encounter Summary ---
:1990 Author Organization [facility] Address [address] [place] [address] Care Team Providers Name Role Phone Unknown, Provider Primary Care Provider Encounter Details Date Type Department Care Team Description 09/23/2015 Results Only [facility] Milo Turner MD [phone] [place] [address] Social History Tobacco Use Types Packs/Day Years [...] Procedure Name Priority Date/Time Associated Diagnosis Comme [facility] SURGICAL PATHOLOGY Routine 09/23/2015 17:59 Resul ts for this EDT procedure are i n the results section. documented in this encounter Results SURGICAL PATHOLOGY (09/23/2015 17:59 EDT) Pathology Report: SURGICAL PATHOLOGY REPORT [facility] Reports generated via electronic interface contain scott ginal data; LABORATORY however they are lacking the format of the original re port. SERVICES Caution should be taken when reading/interpreting unfo rmatted reports. Name: ? SORIN MAJOR ? Accession #: ? [id number] ? : ? 1990 (Age: [age]) ??F ? Collect Date: ? 09/23/2015 ? Location: ? [facility] ? Receive Date: ? 6 ? Provider: MILO TURNER MD Copy to: MEREDITH QUEZADA MD ? Final Pathologic Diagnosis: A. FALLOPIAN TUBE, RIGHT, DISTAL SALPINGECTOMY: - Fallopian tube with no specific pathologic features; full cross sections identified. B. FALLOPIAN TUBE, LEFT, DISTAL SALPINGECTOMY: - Fallopian tube with no specific pathologic features; full cross sections identified. Document reviewed and electronically signed by: LUIGI FLYNN MD Report ??Date: 09/26/2015 14:03 By the signature above, the attending physician certif ies that he/she has personally conducted a gross and/or microscopic examin ation of the described specimens and rendered or confirmed the above diagnosi s. Specimen(s) Received: A. ??Rt tube B. ??Left tube Clinical History: Repeat ; desires sterilization; for distal sa lpingectomy bilat Gross Description: A. ?Received in formalin labelled with proper p atient identification (initials R, C) and #1 Rt tube is a fimbriated fallo pian tube (7.0 cm in length x 0.7 cm in diameter) , without associated ovary. ??The serosa is fraser-avalos, focally fraser-brown, and gener ally smooth. ??Sectioning reveals a fraser cut surface with a pinpoint lumen throug hout. One-half of the longitudinally bisected distal end of the fallopian tube, along with two cross sections are submitted in A1. B. ?Received in formalin labelled with proper p atient identification (initials R, C) and #2 left tube is a fimbriat ed fallopian tube received in two pieces (2.6 cm and 2.8 cm in length x 0.8 cm in di ameter), without associated ovary. ??The serosa is fraser-avalos, focally ta n-brown, and generally smooth. ??Sectioning reveals a fraser cut surface with a pinpoint lumen throughout. One-half of the longitudinal ly bisected distal end of the fallopian tube, along with two cross sections are submitted in B1. Silverio Brown 09/24/2015 10:00 AM End of Report Specimen Performing Organization Address City/State/ZIP Code Phon e Number [facility] [address] [place] [address] SERVICES documented in this encounter Visit Diagnoses Not on filedocumented in this encounter Care Teams Cabin Crew Relationship Specialty Start Date End Date Unknown, Provider, PCP - General 01/12/11 documented as of this encounter
--- OUTSIDE RECORDS SUMMARY | 2021-09-01 01:26 | XMS_ITS | Encounter Summary ---
:1990 Author Organization [facility] Address [address] [place] [address] Care Team Providers Name Role Phone Unknown, Provider Primary Care Provider Encounter Details Date Type Department Care Team Description 10/19/[address] [facility] Milo Turner MD [phone] [place] [address] Social History Tobacco Use Types Packs/Day Years [...] Diagnosis Comme nts PAP TEST- RESULT Routine 10/19/2013 0:00 EDT Resu lts for this ONLY procedure are i n the results section. documented in this encounter Results PAP TEST- RESULT ONLY (10/19/2013 0:00 EDT) Pathology Report: CYTOPATHOLOGY REPORT [facility] Reports generated via electronic interface contain scott ginal data; however they are lacking the format of the original re port. Caution should be taken when reading/interpreting unfo rmatted reports. Name: ? SORIN MAJOR ? Accession #: ? [id number] ? : ? 1990 (Age: 23) ??F ?Collect Da te: ? 10/19/2013 ? Location: ? [facility] ? Receive Date: ? 014 ? Provider: MILO TURNER MD Copy to: MEREDITH QUEZADA MD ? Final Report SPECIMEN ADEQUACY ? Satisfactory for Evaluation - transformation zone component present GENERAL CATEGORIZATION ? Negative for Intraepithelial Lesion or Malignan cy INTERPRETATION ? Fungal organisms pres ent morphologically consistent with Kasey species. Hormonal/Contraceptive status: Intrauterine device: Mi diamond Specimen/Source: ??Pap Test, Cervix/Endocervix, ThinPr ep Imaging System with manual evaluation Document reviewed and electronically signed by: ? RHIANNON Jackson(ASCP) ? Report ??Date: 10/25/2013 13:55 HPV with Pap Test ? Date Ordered: ? 10/25/2013 ? Status: ?? Signed Out ?Date Complete: ? 10/27/2013 ? By: ??S ystem Interface ? Date Reported: ? 10/27/2013 ? Interpretation RESULT: Negative for HPV. No E6 or E7 mRNA is detected from HPV types 16,18,31,3 3,35, 39,45,51,52,56,58,59,66, and 68 by wireless retail manager media hong amplification. Comments Document reviewed and electronically signed by: ? System Interface ? Report date: 10/27/2013 By the signature above, the attending physician certif ies that he/she has personally conducted a gross and/or microscopic examin ation of the described specimens and rendered or confirmed the above diagnosi s. End of Report Specimen Performing Organization Address City/State/ZIP Code Phon e Number [facility] [address] [place] [address] SERVICES [facility] [address] [place] [address] documented in this encounter Visit Diagnoses Not on filedocumented in this encounter Care Teams Three Dimensional Art Instructor Relationship Specialty Start Date End Date Unknown, Provider, PCP - General 01/12/11 documented as of this encounter
--- OUTSIDE RECORDS SUMMARY | 2021-09-01 01:26 | XMS_ITS | Encounter Summary ---
:1990 Author Organization [facility] Address [address] [place] [id number] Care Team Providers Name Role Phone Unknown, Provider Primary Care Provider Reason for Visit Reason Comments Wrist Pain Encounter Details Date Type Department Care Team Description 02/16/2011 Hospital Encounter [facility] Braden Woodward, Right wrist sprain; Urgent Care - Tenosynovitis of wrist [address] [place] [address] [phone] Social History Tobacco Use Types Packs/Day Years [...] Sign Reading Time Taken Comments Blood Pressure 100/58 02/16/2011 1531 EST Pulse 76 02/16/2011 1531 EST Temperature 37.1 ??C (98.8 ??F) 02/16/2011 1531 EST Respiratory Rate 12 02/16/2011 1531 EST Oxygen Saturation - - Inhaled Oxygen Concentration - - Weight - - Height - - Body Mass Index - - documented in this encounter Discharge Instructions AttachmentsThe following attachments cannot be sent through Care Everywhere. TENOSYNOVITIS OF THE WRIST: AFTER YOUR VISIT (TAJIK)WRIST SPRAIN: AFTER YOUR VISIT (TAJIK)documented in this encounter Medications at Time of Discharge Medication Sig Dispensed Refills Start Date End Date acetaminophen (TYLENOL) 500 Take 500 mg by 0 mg tablet mouth as needed. documented as of this encounter Discharge Disposition Disposition Code Departure Means Destination Home or Self Shelter documented in this encounter ED Notes Braden Woodward - 02/16/2011 1628 EST DOS: 02/16/2011 Chief Complaint Patient presents with ??? Wrist Pain The patient is a 20 y.o. female who presents today with Wrist Pain HPI Comments: This pleasant young woman presents complaining of right wrist pain. When she came homefrom work 2 days ago she noticed some pain. She started wearing a wrist brace she had left over froma previous bout of tendinitis. Unfortunately, she slipped on the ice today landing on her outstretched right hand. She had significantly increased pain. Symptoms throughout this episode happened different than her previous wrist pain episodes. This reports being generally healthy. Her work requires quite a bit of hand and wrist activity, works at [employer]. She is also in school, hair dressing. Patient has a 1-year-old child at home. Family history is negative for inflammatory arthritis. The history is provided by the patient. Wrist Pain The pain is present in the right wrist. The pain is at a severity of 8/10. Pertinent negatives include no fever. Review of Systems Constitutional: Negative for fever, diaphoresis and fatigue. HENT: Negative. Eyes: Negative. Respiratory: Negative. Cardiovascular: Negative. Gastrointestinal: Negative. Musculoskeletal: Positive for joint swelling and arthralgias. Negative for myalgias. Skin: Negative. Negative for rash. Neurological: Negative for weakness and numbness. Hematological: Negative. Psychiatric/Behavioral: Negative. No current facility-administered medications for this encounter. Current Outpatient Prescriptions Medication Sig Dispense Refill ??? acetaminophen (TYLENOL) 500 mg tablet Take 500 mg by mouth as needed. Allergies Allergen Reactions ??? Sulfa (Sulfonamide Antibiotics) Nausea And Vomiting History reviewed. No pertinent past medical history. History Substance Use Topics ??? Smoking status: Never Smoker ??? Smokeless tobacco: Never Used ??? Alcohol Use: Yes Rare No family history on file. BP 100/58 Pulse 76 Temp(Src) 98.8 ??F (37.1 ??C) (Oral) Resp 12 LMP 01/17/2011 Physical Exam Nursing note and vitals reviewed. Constitutional: She is oriented to person, place, and time. She appears well- developed and well-nourished. No distress. HENT: Head: Normocephalic and atraumatic. Eyes: Conjunctivae and EOM are normal. Pupils are equal, round, and reactive to light. Neck: Normal range of motion. Neck supple. Cardiovascular: Normal rate. Pulmonary/Chest: Effort normal. Musculoskeletal: Right wrist: She exhibits decreased range of motion, tenderness, bony tenderness and swelling. She exhibits no effusion, no deformity and no laceration. Right wrist: Positive Xi test. Neurovascularly intact distal to the wrist. Neurological: She is alert and oriented to person, place, and time. She exhibits normal muscle tone.Coordination normal. Skin: Skin is warm and dry. No rash noted. She is not diaphoretic. No erythema. No pallor. Psychiatric: She has a normal mood and affect. Her behavior is normal. Judgment and thought content normal. Consult orders: None PCP: Kumar, DoctorMD No results found for this visit on 02/16/11. Radiology orders: WRIST 3 OR MORE VIEWS WRIST 3 OR MORE VIEWS (Results Pending) Procedures Course: A medical screening exam was performed. X-ray: No acute appearing abnormalities other than some mild soft tissue swelling. Reviewed study and radiologist reading. We discussed my impression and differential diagnosis. Placed in a more substantial wrist brace. Reviewed ongoing supportive care. Note written for her school concerning activity modification. Followupwith new primary care provider next week as scheduled. Disposition: Discharged The patient's pain was managed to an adequate level weighing risk vs. benefit of further medications. Upon departure from the [facility], the patient's pain was 8 on a zero to ten scale. Patient is pleasant and interactive, no acute distress during our visit except tenderness noted on exam. Condition at departure from the [facility]: Stable 1. Right wrist sprain 2. Tenosynovitis of wrist No supervision required. [facility] 02/16/2011 16:28 Fab Menendez 02/16/2011 1535 EST Patient presents for right sided wrist pain. Pain present from third MCP to mid forearm. Patient reported that she was experiencing wrist pain on 02/14/11, but then fell today landing on her outstretched arm while wearing wrist brace. Patient remembers no injury prior to today. Reports: pain, swelling, and numbness. Denies: Tingling and bruising. Upper extremity CSMT's within normal limits and equal bilaterally. Edema present over area of pain. No erythema. Patient declines an ice pack. delmira Stevens - 02/16/2011 1531 EST Patient reports that she is having right wrist pain ever since Wednesday night. She cannot recall anyinjury. documented in this encounter Miscellaneous Notes Scanned Note-Null - Manager Utilities, Scan - 02/26/2011 0829 EST documented in this encounter Plan of Treatment Not on filedocumented as of this encounter Procedures Procedure Name Priority Date/Time Associated Diagnosis Comme nts WRIST 3 OR MORE STAT 02/16/2011 15:58 Results for this VIEWS EST procedure are i n the results section. documented in this encounter Results WRIST 3 OR MORE VIEWS (02/16/2011 15:58 EST) Anatomical Region Laterality Modality Other Specimen Narrative [facility] - 02/16/2011 18:34 EST Right WRIST 3 OR MORE VIEWS ??Feb 16, 2011 03:58:00 PM Signs and Symptoms/Comments: ??Pain from proximal to the third MCP to mid forearm. ??Swelling present. ??Patie nt fell onto her outstretched arm. Comparison: None Findings: Four views of the right wrist reveal no acute fracture or malalignment. There is mild dorsal soft tissue swelling. I have personally reviewed the images an d the above interpretation and agree with the findings. Procedure Note Phillip Maddox MD - 02/16/2011 Right WRIST 3 OR MORE VIEWS Feb 16, 2011 03:58:00 PM Signs and Symptoms/Comments: Pain from p roximal to the third MCP to mid forearm. Swelling present. Patient f ell onto her outstretched arm. Comparison: None Findings: Four views of the right wrist reveal no acute fracture or malalignment. There is mild dorsal soft tissue swelling. I have personally reviewed the images an d the above interpretation and agree with the findings. Performing Organization Address City/State/ZIP Code Phon e Number [facility] documented in this encounter Visit Diagnoses Diagnosis Right wrist sprain Sprain of wrist, unspecified site Tenosynovitis of wrist Other tenosynovitis of hand and wrist documented in this encounter Historical Medications This list may reflect changes made after this encounter. Medication Sig Dispensed Refills Start Date End Date acetaminophen (TYLENOL) 500 Take 500 mg by 0 mg tablet mouth as needed. added in this encounter Care Teams Superintendent Seed [employer] Relationship Specialty Start Date End Date Unknown, Provider, PCP - General 01/12/11 documented as of this encounter
--- OUTSIDE RECORDS SUMMARY | 2021-09-01 01:26 | XMS_ITS | Clinical Summary ---
:1990 Author Organization [facility] Address [address] [place] [address] Care Team Providers Name Role Phone Unknown, Provider Primary Care Provider Allergies Active Allergy Reactions Severity Noted Date Comments Sulfa (Sulfonamide Antibiotics) Nausea And Vomiting Medications Medication Sig Dispensed Refills Start Date End Date Status acetaminophen (TYLENOL) Take 500 mg by 0 Active 500 mg tablet mouth as needed. Surgical History Surgery Date Site/Laterality Comments WISDOM TOOTH EXTRACTION KNEE CARTILAGE SURGERY Left Social History Tobacco Use Types Packs/Day Years [...] - - Body Mass Index - - Plan of Treatment Health Maintenance Due Date Last Done Comments COVID-19 Vaccine (1) 2001 Care Teams Financial Retirement Plan Specialist Relationship Specialty Start Date End Date Unknown, Provider, PCP - General 01/12/11
[2021-09-01 08:09] LABS: Source Nasal/Nares
[2021-09-01 15:28] LABS: COVID-19 PCR Negative (Negative)
== END 2021-09-01 01:25 | disposition home or self-care (01) ==
LOC: LBO 01:24
PROVIDERS: PCP Nurse Practitioner Family; Visit Provider Surgery
DX: Z20.822 Contact with and (suspected) exposure to COVID-19 (principal); Z01.818 Encounter for other preprocedural examination
CPT/HCPCS: 87635

== ENCOUNTER 2021-09-03 06:13 | Day surgery (SDC) | payer MEDICAID, SELFPAY ==
--- NOTE | 2021-09-02 17:07 | W.ANESPRE ---
General Info Date of Service Date Performed: 09/03/21 Height: 5 ft 2 in Weight: 83.007 kg Body Mass Index (BMI): 33.5 Surgical Procedure: Operation Date: 09/03/21 07:40 Proposed Procedure Side Surgeon p Excision of Abdominal Mass at Site Rosalind Casas MD Meds Allergies and Home Medications Allergies Allergy/AdvReac Type Severity Reaction Status Date / Time Sulfa (Sulfonamide Allergy Unknown as a child Verified 09/03/21 06:30 Antibiotics) naproxen AdvReac Unknown GI UPSET Verified 09/03/21 06:30 Home Medication Medication Instructions Recorded hydroxychloroquine 200 mg tablet 400 mg PO DAILY 07/30/21 Current Visit Medications: Current Medications Generic Name Dose Route Start Last Admin Trade Name Freq PRN Reason Stop Dose Admin Ringer's Solution 1,000 mls @ 80 mls/hr 09/03/21 06:00 IV 10/02/21 23:59 INFUSION RYLIE Cefazolin Sodium 2,000 mg/ 100 mls @ 200 mls/hr 09/03/21 06:00 Sodium Chloride IVPB 09/03/21 18:00 PREOP RYLIE IV Miscellaneous Supplies 1 each 09/03/21 06:00 Iv Access IV 10/02/21 23:59 DIRECTED RYLIE Sodium Chloride 0 ml 09/03/21 06:00 Normal Saline Flush 10 Ml Syr IV 10/02/21 23:59 PRN PRN Sodium Chloride 0 ml 09/03/21 06:00 Normal Saline 10 Ml Vial IJ 10/02/21 23:59 DIRECTED PRN Sterile Water 0 ml 09/03/21 06:00 Water,Injection,Sterile 10 Ml Vial IJ 10/02/21 23:59 DIRECTED PRN PFSH Active Problems Active Problems: Problem Status Onset Code Pericarditis I31.9 Ventral hernia without obstruction or gangrene K43.9 Medical History Medical History COVID-19 virus infection Positive test 06/10/20 Depressive disorder Hyperlipidemia Injury of knee, left Left ovarian cyst Lumbar back pain with radiculopathy affecting left lower extremity Migraine headache with aura TMJ (temporomandibular joint disorder) Medical History Comments:: Pt. states her boyfriend was positive a week and a half ago from the time this pre-op patient has done various at home covid tests all negative and has had no symptoms, and is fully vaccainated. Surgical History Surgical History H/O left knee surgery (~2005) Torn Meniscus Repair H/O tubal ligation (09/30/15) History of section (~2012) 2012 and 2015 Tobacco Smoking/Tobacco Use Status: Never Passive smoking exposure: Yes (over 6 years ago) Second hand exposure: Yes Alcohol Alcohol Intake: current Alcohol intake frequency: a few times a month Alcohol type: wine Substance Use Substance use: Never Substance use type: does not use Prental History History 3 Para 3 Hx # Term Pregnancies Multiple births Hx # Pregnancies Ectopic pregnancies AB induced Hx Number of Living Children 3 AB spontaneous Vital Signs and Lab Results Lab Results Blood Type / Crossmatch: No Data to Display Complete Blood Count: No Data to Display Complete Metabolic Panel: No Data to Display Liver Function Panel: No Data to Display Coagulation Panel: No Data to Display Cardiac Panel: No Data to Display Arterial Blood Gas: No Data to Display Venous Blood Gas: No Data to Display Pancreas Panel: No Data to Display Thyroid Panel: No Data to Display Infectious Disease: Coronavirus (COVID-19)(PCR) Negative (Negative) 09/01/21 08:09 Coronavirus 2019 Source Nasal/Nares 09/01/21 08:09 Blood Cultures: No Data to Display Toxicology Panel: No Data to Display Panel: No Data to Display Imaging and Studies Imaging and Studies Study information below may be from another EMR and interpreted by another provider. Please see original notes in EMR for more complete details. Echocardiogram Summary: 08/23/19 (for pericarditis): LVEF 55-60%, mild TR, mild Mr. Anesthesia Assessment and Plan Anesthesia History Personal History: No History of Anesthesia Complications Family History: No Family History of Anesthesia Complications Exercise Tolerance Exercise Tolerance: Metabolic Equivalents>4 Cardiac & Pulmonary Exam Cardiac Exam: Normal S1/S2 Heart Sounds Pulmonary Exam: Clear Bilateral Breath Sounds Implantable Cardiac Device Does patient have a Pacemaker or an ICD?: No Airway Exam Known Difficult Airway: No Mallampati Class: 3 Mouth Opening: Narrow (< 3cm) Thyromental Distance: Less than 3 cm Neck Range of Motion: Full ROM Neck Circumference: Normal Teeth Condition: Normal Dentition Airway Comments: TMJ ASA Classification ASA Score: ASA 2 Emergency Case?: No NPO Status NPO Status: NPO Clears >2 hours, Solids >8 hours Status Status: Negative HCG Anesthesia Plan Resuscitation Status: Full Code Anesthesia Technique: General Anesthesia Airway Planned: Natural Airway Monitors Used: Standard Monitors Preoperative Comments:: 31 yo female for painful scar/mass removal. Sig PMHx: pericarditis (followed by rheum at [facility], low back pain. hydroxychloroquine), TMJ. Previous Anes: no airway on file.
[2021-09-03] VITALS (9 sets, daily range): BP systolic 93–109; BP diastolic 53–73; PULSE 70–90; RESP 13–21; TEMP 36.3–36.8; O2SAT 97–100; BMI 33.5
--- NOTE | 2021-09-03 06:26 | ROE_ITS ---
Date of service: 09/03/21 Time of Service: 08:03 Operative Note Operative Note DATE OF PROCEDURE: 09/03/21 PRE-OP DIAGNOSIS: abdominal wall mass/scar tissue POST-OP DIAGNOSIS: same PROCEDURE: Excision of mass/scar tissue SURGEON: Rosalind Casas SIZE PAINTER: Annamarie Oconnor ANESTHESIA TYPE: General:No Airway Refer to Anesthesia Record ESTIMATED BLOOD LOSS: 15 PATHOLOGY: other (mass) COMPLICATIONS: None Patient was transported to: same day Patient's condition: stable Implants: Ventralex ST patch: REF- [id number] LOT- [id number] - 2022-11-12 Indications: Amina is back to see me because of the pain in her left lower quadrant that has become constant and more severe again.? She had about 2 weeks of complete relief of pain after the Kenalog injection.? It then became intermittent and over the last 2 months it has become constant.? She was seen in the emergency department on the for the pain.? CT scan at that time showed scar tissue versus mass in the left lower quadrant right by her scar.? Differe ntial includes scar tissue and endometrioma.? Discussed doing another injection which will give her some relief versus just going in and removing the scar tissue/mass and seeing if that takes away her pain completely.? We discussed the risks, benefits and complications of both of her options.? At this point she would like to proceed with excision. Risks, benefits, complications were reviewed with her.? Complications include but are not limited to bleeding, infection, wound dehiscence, return of the pain and adverse reaction to the medications given.? Her questions were entertained and answered to her satisfaction and she wished to proceed.? No guarantees were given or implied. Findings: Hard rubbery mass measuring 2 x 3 cm Procedure Description: After informed consent was obtained the patient was taken to the OR and placed in a supine position. Monitors were applied and the patient was placed under general anesthesia without airway. A time out was done and the patients name, , allergies to medications, DVT prophilaxis, antibiotic given, procedure to be done and site were reviewed. Fire risk was assessed. Next the patients abdomen was prepped and draped in a standard fashion. The skin and subcutaneous tissue was infiltrated with 0.25% Bupivocaine plain. The mass was then palpated again. An incision was made over the palpable mass measuring 3 cm. Dissection was done with cautery through the subcutaneous tissue down to the fascia. The fascia and mass was grasped with an Rosy. Dissection was done around the palpable mass with cautery. The rectus muscle had to be cut in order to remove the mass. The overlying fascia had to be removed with the mass. Once the mass was removed it was placed in formalin and sent to pathology. Because I had to remove part of the fascia I elected to place a small piece of mesh. The rectus muscle was dissected away from the fascia. A sm all 2.5 cm Ventralex mesh was placed over the muscle and secured to the fascia. The fascia was then closed over the mesh with 0 vicryl. The subcutaneous tissue was then re-approximated with 2-0 vicryl. The dermis was closed with 4-0 Monocryl. The skin was cleaned and dried and skin affix was applied. The patient was woken up and taken back to [facility] in stable condition. There were no immediate co mplications and the patient tolerated the procedure well. Sponge, instrument and needle counts were correct.
--- NOTE | 2021-09-03 06:27 | PDOC.DSDIS_ITS ---
Discharge Plan Disposition Patient Disposition: HOME Condition: Good Discharge Details Reason For Visit: abdominal wall mass Attending Provider: Rosalind Casas Primary Care Provider: Nuzhat Garcia Home Meds and New Rx's Prescriptions: Continued hydroxychloroquine 200 mg tablet 400 mg PO DAILY Label Comments: TAKE 1 TABLET BY MOUTH TWICE DAILY Discharge Instructions Additional Instructions: Activity at Home after surgery: 1. Make sure you walk outside at least 4 times per day 2. You should be able to climb a flight of stairs 3. No driving while in pain or taking pain medications 4. No strenuous activity or heavy lifting for 2 weeks Diet, Nutrition, & wound healin. Avoid alcohol until after you are recovered from your surgery 2. Make sure to eat plenty of lean protein (meat, fish, eggs, cottage cheese, beans) 3. Eat a variety of fruits and vegetables. Eat plenty of high fiber foods to avoid constipation. 4. Drink plenty of liquids to stay hydrated and avoid constipation Pain Medications: 1. Tylenol 650mg every 6 hours as needed and Ibuprofen 600 mg every 6 hours as needed. You may alternate between the 2 medications every 3 hours 2. If a narcotic has been prescribed take as directed only for breakthrough pain For Constipation: 1. Take Milk of Magnesia or MiraLax as needed for constipation Other: 1. You may shower daily. Do not scrub the incisions 2. Do not soak the incisions for 1 week 3. You may alternate ice and heat as needed for pain and swelling Wound Care: 1. Keep the incisions clean and dry Please call our office if you develop: 1. Fevers >101.5 2. Nausea or Vomiting 3. Worsening pain 4. Redness and thick discharge from the wounds If after hours please call the Hospital at and ask to speak to the on-call surgeon Referrals: Annamarie Oconnor PA [PHYSICIANS CARDIOPULMONARY TECHNICIAN] - 09/12/21 1:45 am Activity:: Activity as Tolerated Diet:: As Tolerated Discharge Orders Discharge Orders: Discharge Order (Routine); Ordered 09/03/21 Ordered By: Rosalind Casas
[2021-09-03] MEDS: Acetaminophen 500 MG TAB (06:46)
[2021-09-03] MEDS: Celecoxib 200 MG CAP (06:47)
[2021-09-03] MEDS: Gabapentin 300 MG CAP (06:48)
[2021-09-03] MEDS: Lactated Ringers 1,000 ML 80 ML IV (07:07)
[2021-09-03] MEDS: ceFAZolin 2,000 MG in Normal Saline 100 ML 200 MG IVPB (07:23)
[2021-09-03] MEDS: Bupivacaine 0.25% Pres-Free 30 ML VIAL (07:43)
--- NOTE | 2021-09-03 07:53 | SOFT_PTH ---
PATIENT: Amina Jones LOC: [facility] U#:[id number] AGE/SX: 31/F ROOM: RE09/03/[address]: Rosalind Casas MD : 1990 BED: DIS: 09/03/2021 SPEC #: [id number] RECD: 09/03/21 12:48 STATUS: FELICIA FUNG #: [id number] RODRIGO: 09/03/21 07:[address]: Rosalind Casas DEPT: Surgical Specimen RECD BY: Cristina Hernandez ENTERED: 09/03/21 12:50 SP TYPE: SOFT OTHR DR: BISI Da Silva Tissues: 1 - SOFT TISSUE MISC (INC. LIPOMA) Procedures: GROSS AND MICRO LEVEL 3 Comments: [id number]
[2021-09-03] MEDS: fentaNYL 100 MCG/2 ML VIAL IVP (08:50)
--- NOTE | 2021-09-03 09:03 | W.ANESPOSTOP ---
Postoperative Evaluation Date, Time and Location Date Performed: 09/03/21 Time Performed: 09:03 Patient Location: PACU Vital Signs Most Recent Imported Vital Signs: Most Recent Vital Signs Temp Pulse Resp BP Pulse Ox 36.5 C 75 15 109/69 98 09/03/21 08:50 09/03/21 08:50 09/03/21 08:50 09/03/21 08:50 09/03/21 08:50 Pain Score Most Recent Pain Score: Most Recent Pain Score Pain Level 5 09/03/21 08:50 Assessment Mental Status: Arousable with meaningful communication Airway and Respiratory Function: Patent airway with normal (patient baseline) respiratory exam Cardiovascular Function: Hemodynamically Stable Hydration Status: Adequately Hydrated Nausea & Vomiting: No Nausea or Vomiting Pain: Pain is tolerable per patient Peripheral Nerve Block: Patient did not receive a nerve block
[2021-09-03] MEDS: traMADol 50 MG TAB PO (09:16)
== END 2021-09-03 10:49 | disposition home or self-care (01) ==
PROVIDERS: PCP Nurse Practitioner Family; Visit Provider Surgery
PROC: (CPT 22903; principal; 2021-09-03 07:30)
DX: R22.2 Localized swelling, mass and lump, trunk (principal); E78.5 Hyperlipidemia, unspecified; F32.A Depression, unspecified; N80.9 Endometriosis, unspecified
CPT/HCPCS: 22903; 13101; 81025; 88304; C1781; J0690; J1100; J1885; J2250; J2405; J3010

== ENCOUNTER 2022-04-02 02:27 | Outpatient (CLI) | payer MEDICAID, SELFPAY ==
[2022-04-02 15:51] LABS: Abs Immature Grans 0.01 10^3/uL (0.0-0.06); Absolute Basophil Count 0.04 10^3/uL (0.0-0.2); Absolute Eosinophil Count 0.23 10^3/uL (0.0-0.7); Absolute Lymphocyte Count 2.17 10^3/uL (1.2-3.4); Absolute Monocyte Count 0.47 10^3/uL (0.1-0.8); Absolute Neutrophil Count 2.42 10^3/uL (1.2-6.7); Basophils % 0.7; Eosinophils % 4.3; HCT 38.6 % (36.0-46.0); HGB 12.6 g/dL (11.2-15.7); Immature Grans % 0.2; Lymphocytes % 40.6; MCH 29.6 pg (27.0-33.0); MCHC 32.6 % (32.0-36.0); MCV 91 fL (80-95); MPV 9.4 fL (8.0-11.0); Monocytes % 8.8; Neutrophils % 45.4; Platelet Count 315 10^3/uL (130-400); RBC 4.25 10^6/uL (3.93-5.22); RDW 14.1 % (11.7-14.6); RDW-SD 46.3 fL; WBC 5.34 10^3/uL (4.4-10.8)
[2022-04-02 15:54] LABS: ESR 11 mm/hr (0-20)
[2022-04-02 16:45] LABS: ALT 26 U/L (14-59); AST 16 U/L (15-37); Albumin 3.9 g/dL (3.4-5.0); Alkaline Phosphatase 78 U/L (46-116); Anion Gap 8.7 mmol/L (3-11); BUN 9 mg/dL (7-18); Bilirubin, Total 0.7 mg/dL (0.2-1.0); C-Reactive Protein 0.23 mg/dL (0.0-0.3); CO2 28.3 mmol/L (21.0-32.0); CREATININE 0.8 mg/dL (0.55-1.02); Calcium 9.2 mg/dL (8.5-10.1); Calculated LDL 92 mg/dL (<100); Chloride 102 mmol/L (98-107); Cholesterol 182 mg/dL (<200); Estimated GFR 100.33 (mL/min/1.73m2); Ferritin 38 ng/mL (8-252); Glucose 80 mg/dL (74-106); HDL Cholesterol 69 mg/dL (40-60); Sodium 139 mmol/L (136-145); TSH (W/Ref FT4) 1.91 uIU/mL (0.36-3.74); Triglyceride 105 mg/dL (<150)
== END 2022-04-02 02:28 | disposition home or self-care (01) ==
LOC: LBO 02:27
PROVIDERS: PCP Nurse Practitioner Family; Visit Provider Internal Medicine
DX: G62.9 Polyneuropathy, unspecified (principal); R20.2 Paresthesia of skin; E78.5 Hyperlipidemia, unspecified; M06.09 Rheumatoid arthritis without rheumatoid factor, multiple sites; Z79.899 Other long term (current) drug therapy
CPT/HCPCS: 36415; 80053; 80061; 85652; 82728; 83036; 84443; 85025; 86140

== ENCOUNTER 2022-04-27 02:06 | Outpatient (CLI) | payer MEDICAID, SELFPAY ==
--- NOTE | 2022-04-27 07:00 | DI.MRI_ITS ---
Exam(s) MR UPPER JOINT RT WO EXAM: MR UPPER JOINT RT WO CLINICAL HISTORY: right shoulder pain x 1 yr, ? rotator cuff tear,,m25.511. TECHNIQUE: Multiplanar multisequence MRI was performed. COMPARISON: No exams were available for comparison FINDINGS: The examination is limited due to patient motion artifact. BONES: There is no fracture or contusion pattern. JOINTS: Very mild degenerative changes are seen at the AC joint. The glenohumeral joint is normal. TENDONS: Supraspinatus: Unremarkable. Infraspinatus: Unremarkable. Subscapularis: Unremarkable. Teres Minor: Unremarkable. Biceps and Morenci: Unremarkable. MUSCLES: Unremarkable. GLENOID LABRUM: Unremarkable on this noncontrast examination. SOFT TISSUES: Unremarkable. LIGAMENTS: Unremarkable. OTHER: There is a mild amount of edema seen in the subdeltoid bursa. IMPRESSION: 1. No evidence of a rotator cuff or labral tear is seen on this noncontrast examination. 2. Very mild degenerative changes of the AC joint. 3. Mild edema seen in the subdeltoid bursa. DATA REPOSITORY:
== END 2022-04-27 02:26 ==
LOC: DI 02:06
PROVIDERS: PCP Nurse Practitioner Family; Visit Provider Nurse Practitioner Family
DX: M25.511 Pain in right shoulder (principal); R60.0 Localized edema; M25.811 Other specified joint disorders, right shoulder
CPT/HCPCS: 73221

== ENCOUNTER 2022-07-01 09:45 | Emergency (ER) | payer OTHER, SELFPAY ==
[2022-07-01 09:49] VITALS: BP 128/83; PULSE 87; RESP 18; TEMP 36.4; O2SAT 97
--- NOTE | 2022-07-01 10:06 | ED.GENADUL_ITS ---
Discharge Plan Disposition Patient Disposition: Home Discharge Details Clinical Impression: Traumatic contusion of right periorbital region Primary Care Provider: Nuzhat Garcia ED Provider: Belia Hickman Home Meds and New Rx's Prescriptions: No Action colchicine 0.6 mg capsule 0.6 mg PO PRN methotrexate sodium 2.5 mg tablet 20 mg PO QWEEK norgestimate-ethinyl estradiol [Sprintec (28)] 0.25-35 mg-mcg tablet 1 tab PO DAILY Qty: 84 2RF Rx Instructions: Take in a continuous fashion. Skip placebo. hydroxychloroquine [Plaquenil] 200 mg tablet 200 mg PO BID folic acid 1 mg tablet 1 mg PO DAILY Discharge Instructions Instructions: Contusion in Adults (ED) Additional Instructions: Keep ice on every 20 minutes for 1 to 2 days. Please take Tylenol or Ibuprofen with food every 4-6 hours as needed for pain and swelling. Be seen sooner or return to the ER for any vomiting, increasing headache, visual disturbances or concerns. 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 Patient does have some superficial abrasions and swelling noted to her periorbital area. She was wearing glasses at the time and her glasses did break. She reports a foreign body sensation noted to the outer part of her eye. She also is complaining of a headache. No loss of consciousness. Past medical history includes hyperlipidemia, positional vertigo, migraine endometriosis pericarditis. She is alert and oriented x4. She denies any LOC. We will do a Leger lamp exam with tetracaine and fluorescein. Leger lamp exam performed no uptake in dye, EOM's intact. No foreign body noted no corneal abrasion noted. Patient does have periorbital contusion and ecchymosis noted. Discussed home care ice Tylenol ibuprofen. A gram of Tylenol ordered here. Discussed red flags including vomiting, confusion, visual disturbances which to return. This text was generated using BinWiseation system, please disregard any oddities of phrase or misspellings. HPI General Mode of arrival: ambulatory . Date/Time Provider Initiated Documentation: 07/01/22 09:46 . Limitations to Documentation: no limitations . Information obtained by: patient, RN notes reviewed and old records reviewed . 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 Patient does have some superficial abrasions and swelling noted to her periorbital area. She was wearing glasses at the time and her glasses did break. She reports a foreign body sensation noted to the outer part of her eye. She also is complaining of a headache. No loss of consciousness. Past medical history includes hyperlipidemia, positional vertigo, migraine endometriosis pericarditis. She is alert and oriented x4. She denies any LOC. Related Data Home Medications Medication Instructions Recorded Confirmed folic acid 1 mg tablet 1 mg PO DAILY 12/16/21 07/01/22 hydroxychloroquine 200 mg tablet 200 mg PO BID 12/16/21 07/01/22 (Plaquenil) colchicine 0.6 mg capsule 0.6 mg PO PRN 04/01/22 07/01/22 methotrexate sodium 2.5 mg tablet 20 mg PO QWEEK 04/01/22 07/01/22 norgestimate 0.25 mg-ethinyl 1 tab PO DAILY #84 tabs 04/10/22 07/01/22 estradiol 35 mcg tablet (Sprintec (28)) Previous Rx's Medication Instructions Recorded norgestimate 0.25 mg-ethinyl 1 tab PO DAILY #84 tabs 04/10/22 estradiol 35 mcg tablet (Sprintec (28)) Allergies Allergy/AdvReac Type Severity Reaction Status Date / Time Sulfa (Sulfonamide Allergy Unknown as a child Verified 04/01/22 08:28 Antibiotics) naproxen AdvReac Unknown GI UPSET Verified 04/01/22 08:28 General Stated Complaint: EyeProblem BONNIE: 4 Review of Systems All systems reviewed & are unremarkable except as noted in HPI and below Eyes Eyes: Reports as per HPI, Reports eye pain and Reports other (Swelling and bruising around right eye) PFSH All Active Problems (Updated 07/01/22 @ 10:26 by Belia Hickman NP) Traumatic contusion of right periorbital region (Acute) Palindromic rheumatism (Chronic) Followed by [facility] Pericarditis (Chronic ~2019) Followed by [facility] Peripheral neuropathy (Chronic) Endometriosis (Chronic) Lumbar back pain with radiculopathy affecting left lower extremity (Chronic) Migraine headache with aura (Chronic) Hyperlipidemia (Chronic) BPPV (benign paroxysmal positional vertigo) (Chronic) Ventral hernia without obstruction or gangrene (Chronic) Medical History COVID-19 virus infection Positive test 06/10/20 Depressive disorder Left ovarian cyst TMJ (temporomandibular joint disorder) Surgical History H/O left knee surgery (~2005) Torn Meniscus Repair H/O tubal ligation (09/30/15) History of section (~2012) 2012 and 2015 Family History Mother Diabetes Depression Hyperlipidemia Hypothyroidism Father Diabetes Hyperlipidemia Sister Hyperlipidemia Son ADHD Daughter No problems noted. Daughter No problems noted. Maternal Grandfather , at 82 of kidney failure COPD (chronic obstructive pulmonary disease) Heart disease Chronic kidney disease Diabetes Depression Maternal Grandmother , at 62 of colon cancer Colon cancer Paternal Grandfather , in his 60s of ID Heart disease Myocardial infarction Paternal Grandmother , in her 70s of metastatic bone cancer Metastatic bone cancer Breast cancer Social History Smoking/Tobacco Use Status: Never Second Hand Exposure: Yes Smoking risk assessment performed?: Yes Alcohol Intake: current Alcohol Intake frequency: holidays/special occasions only Alcohol type: wine Drug use: Never Substance use type: does not use Caregiver/Support person: No Household members: other Housing: apartment Communication Needs: None Do you need help understanding health information?: Often current occupation: Cook Pets and animals: Yes Pets and animals: cat(s) Sexually active: Yes Do you think of yourself as: straight/heterosexual Current gender identity: female What is your relationship status?: living with partner How often do you talk on the phone with friends or family?: three or more times per week How often do you get together with friends or relatives?: three or more times per week How often do you attend pentecostal or protestant services?: decline to answer Do you belong to any clubs or organized social groups?: no Panel score (0-1 are the most socially isolated patients): 2 What type of physical activity do you participate in: none Duration: 15-30 minutes/day Frequency: 3-4 times per week Rosa/Judaism: No preference Special rosa needs: No Seatbelt use: always Helmet use: Yes Helmet use: always Drive intox or ride w/intox front end loader driver: No Do you feel safe at home: Yes Do you feel safe in your relationship?: Yes History History 3 Para 3 Hx # Term Pregnancies Multiple births Hx # Pregnancies Ectopic pregnancies AB induced Hx Number of Living Children 3 AB spontaneous Exam HENMT Head: normal to inspection, no palpable skull fracture, normocephalic and contusion Head images: 1. Swelling and ecchymosis, superficial abrasions Eyes Periorbital: periorbital findings abnormal right periorbital swelling, periorbital tenderness and periorbital ecchymosis; no crepitus Conjunctivae: conjunctivae normal Sclera: sclerae normal Cornea: corneas normal and fluorescein used (No uptake in dye) Pupils: PERRL, normal by confrontation and accommodation normal EOM: EOM intact bilaterally Direct ophthalmoscopy: normal light reflex Eyes/upper lids images: 1. Superficial abrasion, ecchymosis Course Vital Signs Vital signs: Vital Signs Temperature 36.4 C 07/01/22 09:49 Pulse 87 07/01/22 09:49 Respiratory Rate 18 07/01/22 09:49 Blood Pressure 128/83 07/01/22 09:49 Pulse Oximetry 97 07/01/22 09:49 Temperature 36.4 C 07/01/22 09:49 Temperature Source Tympanic 07/01/22 09:49 Pulse 87 07/01/22 09:49 Respiratory Rate 18 07/01/22 09:49 Respiratory Effort Normal, Non-Labored 07/01/22 09:52 Blood Pressure 128/83 07/01/22 09:49 Blood Pressure Position Sitting 07/01/22 09:49 Pulse Oximetry 97 07/01/22 09:49 Oxygen Delivery Method Room Air 07/01/22 09:49 Oxygen Flow Rate 0 07/01/22 09:49 Pain Level 8 07/01/22 09:49
[2022-07-01] MEDS: Acetaminophen 500 MG TAB 1000 MG PO (10:24)
[2022-07-01] MEDS: Fluorescein STRIPS 100/BOX 1 MG (10:25)
[2022-07-01] MEDS: Tetracaine 0.5% 4 ML BTL (10:25)
== END 2022-07-01 10:38 | disposition home or self-care (01) ==
PROVIDERS: Emergency Provider Registered Nurse Emergency; PCP Nurse Practitioner Family
DX: S05.11XA Contusion of eyeball and orbital tissues, right eye, initial encounter (principal); W21.09XA Struck by other hit or thrown ball, initial encounter
CPT/HCPCS: 99283

== ENCOUNTER 2022-08-26 15:45 | Outpatient (CLI) | payer MEDICAID, SELFPAY ==
--- NOTE | 2022-08-26 15:30 | DI.RAD_ITS ---
Exam(s) XR KNEE RT 2V AP,LAT EXAM: XR KNEE RT 2V AP,LAT CLINICAL HISTORY: RT KNEE PAIN...M25.561. TECHNIQUE: 2D digital imaging was performed. COMPARISON: CR XR KNEE LT 4V+ from 01/21/2021 FINDINGS: Two views: No evidence of acute fracture nor prominent joint effusion. No degenerative changes evident. No oss eous lesions. Bone density is age-appropriate. No loose bodies evident. IMPRESSION: No acute osseous findings on these two views of the right knee. DATA REPOSITORY: RADIATION DOSE DELIVERED:
== END 2022-08-26 16:05 ==
LOC: DI 15:48
PROVIDERS: PCP Nurse Practitioner Family; Visit Provider Nurse Practitioner Family
DX: M25.561 Pain in right knee (principal)
CPT/HCPCS: 73560

== ENCOUNTER 2022-08-26 18:04 | Outpatient (CLI) | payer MEDICAID, SELFPAY ==
[2022-08-26 16:25] LABS: D-Dimer 650 ng/mlFEU (<500)
== END 2022-08-26 18:05 | disposition home or self-care (01) ==
LOC: LBO 18:05
PROVIDERS: PCP Nurse Practitioner Family; Visit Provider Nurse Practitioner Family
DX: M25.561 Pain in right knee (principal)
CPT/HCPCS: 36415; 85379

== ENCOUNTER → 2022-08-27 08:35 | Outpatient (CLI) | payer MEDICAID, SELFPAY ==
--- NOTE | 2022-08-27 08:00 | DI.US_ITS ---
Exam(s) US SOFT TISSUE EXTREMITY EXAM: US SOFT TISSUE EXTREMITY CLINICAL HISTORY: evaluate for cyst M25.561 PAIN RT KNEE TECHNIQUE: Grayscale, color, and doppler imaging of the deep venous system of the right lower extrem ity was performed. COMPARISON: US US TRANSVAGINAL from 07/30/2021 FINDINGS: There is no evidence of intraluminal thrombus and there is normal compression and augmentation demons trated within the common femoral vein, femoral vein, and popliteal vein. In the ipsilateral calf the interrogated veins also exhibit normal compression/ augmentation properti es. The ipsilateral saphenofemoral junction is patent. IMPRESSION: 1. No evidence of DVT in the right no DVT evident testing lower extremity. DATA REPOSITORY:
--- NOTE | 2022-08-27 08:09 | DI.US_ITS ---
Exam(s) US LOWER EXTREMITY VENOUS RT EXAM: Lower Extremity Venous RT CLINICAL HISTORY: evaluate for cyst M25.561 PAIN RT KNEE TECHNIQUE: Grayscale, color, and doppler imaging of the deep venous system of the right lower extrem ity was performed. COMPARISON: US US TRANSVAGINAL from 07/30/2021 FINDINGS: There is no evidence of intraluminal thrombus and there is normal compression and augmentation demons trated within the common femoral vein, femoral vein, and popliteal vein. In the ipsilateral calf the interrogated veins also exhibit normal compression/ augmentation properti es. The ipsilateral saphenofemoral junction is patent. IMPRESSION: 1. No evidence of DVT in the right no DVT evident testing lower extremity. DATA REPOSITORY:
== END ==
PROVIDERS: PCP Nurse Practitioner Family; Visit Provider Nurse Practitioner Family
DX: M25.561 Pain in right knee (principal)
CPT/HCPCS: 76881; 93971

== ENCOUNTER 2022-11-05 15:17 | Emergency (ER) | payer MEDICAID, SELFPAY ==
[2022-11-05] VITALS (47 sets, daily range): BP systolic 119–139; BP diastolic 65–89; PULSE 73–97; RESP 11–26; TEMP 36.4–36.8; O2SAT 96–100
--- NOTE | 2022-11-05 15:15 | RT.EKG_ITS ---
APPROVED REPORT Exam: Resting ECG Reason for Exam: CHEST PAIN Patient Location: E HR:86 bpm ECG Measurements Heart Rate 86 AXIS MN 151 P -12 QRSd 89 QRS 53 QT 366 T 53 QTc 437 Conclusion Sinus rhythm.. V-rate 60- 99 ST elev, probable normal early repol pattern...ST elevation, age<55 Appropriate intervals. No ST segment or T wave abnormalities to suggest occlusive CA
[2022-11-05 16:28] LABS: Abs Immature Grans 0.02 10^3/uL (0.0-0.06); Absolute Basophil Count 0.03 10^3/uL (0.0-0.2); Absolute Eosinophil Count 0.18 10^3/uL (0.0-0.7); Absolute Lymphocyte Count 3.02 10^3/uL (1.2-3.4); Absolute Monocyte Count 0.61 10^3/uL (0.1-0.8); Absolute Neutrophil Count 3.79 10^3/uL (1.2-6.7); Basophils % 0.4; Eosinophils % 2.4; HGB 12.7 g/dL (11.2-15.7); Immature Grans % 0.3; Lymphocytes % 39.5; MCHC 32.6 % (32.0-36.0); MCV 92 fL (80-95); MPV 9.4 fL (8.0-11.0); Neutrophils % 49.4; Platelet Count 329 10^3/uL (130-400); RBC 4.24 10^6/uL (3.93-5.22); RDW 13.8 % (11.7-14.6); RDW-SD 46.3 fL; WBC 7.65 10^3/uL (4.4-10.8)
[2022-11-05 16:31] LABS: ESR 12 mm/hr (0-20)
[2022-11-05 16:51] LABS: ALT 32 U/L (14-59); AST 22 U/L (15-37); Albumin 3.8 g/dL (3.4-5.0); Alkaline Phosphatase 86 U/L (46-116); Anion Gap 7.8 mmol/L (3-11); BUN 10 mg/dL (7-18); Bilirubin, Total 0.5 mg/dL (0.2-1.0); CO2 30.2 mmol/L (21.0-32.0); CREATININE 0.8 mg/dL (0.55-1.02); Calcium 9.5 mg/dL (8.5-10.1); Chloride 101 mmol/L (98-107); Estimated GFR 99.71 (mL/min/1.73m2); Glucose 87 mg/dL (74-106); Magnesium 2.1 mg/dL (1.8-2.4); NT-proBNP 45 pg/mL (<300); Potassium 3.6 mmol/L (3.5-5.1); Sodium 139 mmol/L (136-145); Total Protein 7.4 g/dL (6.4-8.2); Troponin I < 50 ng/L (<or=60)
[2022-11-05 16:59] LABS: D-Dimer 474 ng/mlFEU (<500)
[2022-11-05] MEDS: Acetaminophen 500 MG TAB 1000 MG PO (17:11)
[2022-11-05] MEDS: Ketorolac 15 MG/ML VIAL IVP (17:11)
--- NOTE | 2022-11-05 17:56 | W.ED.GENAD ---
Discharge Plan Disposition Patient Disposition: Home Condition: Good Discharge Details Clinical Impression: Chest pain, musculoskeletal Primary Care Provider: Nuzhat Garcia ED Provider: Debora Kimble Home Meds and New Rx's Prescriptions: No Action colchicine (gout) 0.6 mg capsule 0.6 mg PO PRN norgestimate-ethinyl estradiol [Sprintec (28)] 0.25-35 mg-mcg tablet 1 tab PO DAILY Qty: 84 2RF Patient Comments: pt states not taking Rx Instructions: Take in a continuous fashion. Skip placebo. ferrous sulfate 325 mg (65 mg iron) tablet 325 mg PO DAILY hydroxychloroquine [Plaquenil] 200 mg tablet 200 mg PO BID folic acid 1 mg tablet 1 mg PO DAILY methotrexate sodium 2.5 mg tablet 25 mg PO QWEEK Humira(CF) 40 mg/0.4 mL syringe kit 40 mg subcut Q14D Discharge Instructions Instructions: Chest Pain (ED) Additional Instructions: Tylenol and ibuprofen over the counter for pain; follow the directions on the bottle. Call your PCP tomorrow to schedule an appointment within the next 5 days to followup on your visit today. Return to the emergency department for new or worsening symptoms including new/different/worse chest pain, difficultly breathing, symptoms that do not improve within a few days, or if you have any other concerns. Stand Alone Forms: Work Release Medical Decision Making 32yo F with rheumoatoid arthritis presenting with left sided chest pain x 3 days, acutely worse this afternoon around 2pm. Vital signs reassuring, no tachycardia or hypoxia. Reproducible left chest wall and anterior shoulder tenderness to palpation on exam. High suspicion for MSK etiology but will further evaluate for acute cardiac or pulmonary pathology. EKG NSR, appropriate intervals, no sequela of occlusive MD, no significant changes form prior 04/01/20. No TX depression to suggest pericarditis and symptoms not particularly consistent with pericarditis. Labs reviewed as below, CBC & CMP reassuring with no actionable abnormalities, dimer negative (would not further workup pulmonary embolism with CT/etc), troponin negative x 2. ESR normal, slightly elevated CRP. CXR independently reviewed, no focal pneumonia or pneumothorax on my view, agree with radiology read below. Given tylenol & toradol for symptoms; on reassessment pain significantly improved. Suspect likely MSK in etiology. Advised tylenol and ibuprofen at home with close PCP followup. Discharged home; discharge instructions including return precautions were reviewed with patient who verablized understanding. Alll questions were answered and they are in full agreement with the plan. Imaging Data Radiologic Study: Imaging: X-Ray Radiologist's impression: IMPRESSION: Negative frontal chest. Lab Data Lab results reviewed: Yes I reviewed the patient's lab results. Labs: Laboratory Tests Range/Units 11/05/22 11/05/22 11/05/22 16:06 16:06 16:06 WBC (4.4-10.8) 10^3/uL 7.65 RBC (3.93-5.22) 10^6/uL 4.24 Hgb (11.2-15.7) g/dL 12.7 Hct (36.0-46.0) % 39.0 MCV (80-95) fL 92 MCH (27.0-33.0) pg 30.0 MCHC (32.0-36.0) % 32.6 RDW (11.7-14.6) % 13.8 Plt Count (130-400) 10^3/uL 329 MPV (8.0-11.0) fL 9.4 Immature Gran % 0.3 Neutrophils % 49.4 Lymphocytes % 39.5 Monocytes % 8.0 Eosinophils % 2.4 Basophils % 0.4 Nucleated RBC % (0.0-0.3) % 0.0 Absolute Neutrophils (1.2-6.7) 10^3/uL 3.79 Absolute Lymphocytes (1.2-3.4) 10^3/uL 3.02 Absolute Monocytes (0.1-0.8) 10^3/uL 0.61 Absolute Eosinophils (0.0-0.7) 10^3/uL 0.18 Absolute Basophils (0.0-0.2) 10^3/uL 0.03 ESR (0-20) mm/hr D-Dimer (<500) ng/mlFEU 474 Sodium (136-145) mmol/L 139 Potassium (3.5-5.1) mmol/L 3.6 Chloride (98-107) mmol/L 101 Carbon Dioxide (21.0-32.0) mmol/L 30.2 Anion Gap (3-11) mmol/L 7.8 BUN (7-18) mg/dL 10 Creatinine (0.55-1.02) mg/dL 0.8 Est GFR (CKD-EPI 2020) (mL/min/1.73m2) 99.71 Glucose (74-106) mg/dL 87 Calcium (8.5-10.1) mg/dL 9.5 Magnesium (1.8-2.4) mg/dL 2.1 Total Bilirubin (0.2-1.0) mg/dL 0.5 AST (15-37) U/L 22 ALT (14-59) U/L 32 Alkaline Phosphatase (46-116) U/L 86 Troponin I (<or=60) ng/L < 50 C-Reactive Protein (0.0-0.3) mg/dL NT-Pro-B Natriuret Pep (<300) pg/mL 45 Total Protein (6.4-8.2) g/dL 7.4 Albumin (3.4-5.0) g/dL 3.8 Range/Units 11/05/22 11/05/22 16:06 16:06 WBC (4.4-10.8) 10^3/uL RBC (3.93-5.22) 10^6/uL Hgb (11.2-15.7) g/dL Hct (36.0-46.0) % MCV (80-95) fL MCH (27.0-33.0) pg MCHC (32.0-36.0) % RDW (11.7-14.6) % Plt Count (130-400) 10^3/uL MPV (8.0-11.0) fL Immature Gran % Neutrophils % Lymphocytes % Monocytes % Eosinophils % Basophils % Nucleated RBC % (0.0-0.3) % Absolute Neutrophils (1.2-6.7) 10^3/uL Absolute Lymphocytes (1.2-3.4) 10^3/uL Absolute Monocytes (0.1-0.8) 10^3/uL Absolute Eosinophils (0.0-0.7) 10^3/uL Absolute Basophils (0.0-0.2) 10^3/uL ESR (0-20) mm/hr 12 D-Dimer (<500) ng/mlFEU Sodium (136-145) mmol/L Potassium (3.5-5.1) mmol/L Chloride (98-107) mmol/L Carbon Dioxide (21.0-32.0) mmol/L Anion Gap (3-11) mmol/L BUN (7-18) mg/dL Creatinine (0.55-1.02) mg/dL Est GFR (CKD-EPI 2020) (mL/min/1.73m2) Glucose (74-106) mg/dL Calcium (8.5-10.1) mg/dL Magnesium (1.8-2.4) mg/dL Total Bilirubin (0.2-1.0) mg/dL AST (15-37) U/L ALT (14-59) U/L Alkaline Phosphatase (46-116) U/L Troponin I (<or=60) ng/L C-Reactive Protein (0.0-0.3) mg/dL 0.60 H NT-Pro-B Natriuret Pep (<300) pg/mL Total Protein (6.4-8.2) g/dL Albumin (3.4-5.0) g/dL HPI General Date/Time Provider Initiated Documentation: 11/05/22 16:07. Limitations to Documentation: no limitations. Information obtained by: patient. HPI Narrative: 32yo F with rheumoatoid arthritis presenting with left sided chest pain. Pain x 2-3 days, acutely worse this afternoon around 2pm. Left sided, sharp, constant, and radiates down her side & arm. Non positional. Somewhat worse with deep inspiration. No provoking or aggravating factors. No palpitations or shortness of breath. No recent trauma or exertion. Has had pericarditis in the past which felt more dull and substernal. No recent travel, surgery, not on BC or other hormones, no personal hx blood clots. She is otherwise in her usual state of health with no fevers, chills, rash, nausea, vomiting, abdominal pain, LE edema, or other concerns. Related Data Home Medications Medication Instructions Recorded Confirmed folic acid 1 mg tablet 1 mg PO DAILY 12/16/21 11/05/22 hydroxychloroquine 200 mg tablet 200 mg PO BID 12/16/21 11/05/22 (Plaquenil) colchicine (gout) 0.6 mg capsule 0.6 mg PO PRN 04/01/22 11/05/22 norgestimate 0.25 mg-ethinyl 1 tab PO DAILY #84 tabs 04/10/22 08/30/22 estradiol 35 mcg tablet (Sprintec (28)) ferrous sulfate 325 mg (65 mg 325 mg PO DAILY 08/06/22 11/05/22 iron) tablet adalimumab 40 mg/0.4 mL 40 mg subcut Q14D 10/15/22 11/05/22 subcutaneous syringe kit (Humira(CF)) methotrexate sodium 2.5 mg tablet 25 mg PO QWEEK 10/15/22 11/05/22 Previous Rx's Medication Instructions Recorded norgestimate 0.25 mg-ethinyl 1 tab PO DAILY #84 tabs 04/10/22 estradiol 35 mcg tablet (Sprintec (28)) Allergies Allergy/AdvReac Type Severity Reaction Status Date / Time Sulfa (Sulfonamide Allergy Unknown as a child Verified 08/26/22 14:35 Antibiotics) naproxen AdvReac Unknown GI UPSET Verified 08/26/22 14:35 General Stated Complaint: Chest Pain BONNIE: 2 Review of Systems Narrative: see HPI PFSH All Active Problems (Updated 11/05/22 @ 20:01 by Debora Kimble MD) Chest pain, musculoskeletal (Acute) Numbness of foot (Acute) Palindromic rheumatism (Chronic) Followed by [facility] Pericarditis (Chronic ~2019) Followed by [facility] Rheumatology Peripheral neuropathy (Chronic) Endometriosis (Chronic) Lumbar back pain with radiculopathy affecting left lower extremity (Chronic) Migraine headache with aura (Chronic) Hyperlipidemia (Chronic) BPPV (benign paroxysmal positional vertigo) (Chronic) Ventral hernia without obstruction or gangrene (Chronic) Medical History COVID-19 virus infection Positive test 06/10/20 Depressive disorder Left ovarian cyst TMJ (temporomandibular joint disorder) Surgical History H/O left knee surgery (~2005) Torn Meniscus Repair H/O tubal ligation (09/30/15) History of section (~2012) 2012 and 2015 Family History Mother Diabetes Depression Hyperlipidemia Hypothyroidism Father Diabetes Hyperlipidemia Sister Hyperlipidemia Son ADHD Daughter No problems noted. Daughter No problems noted. Maternal Grandfather , at 82 of kidney failure COPD (chronic obstructive pulmonary disease) Heart disease Chronic kidney disease Diabetes Depression Maternal Grandmother , at 62 of colon cancer Colon cancer Paternal Grandfather , in his 60s of MD Heart disease Myocardial infarction Paternal Grandmother , in her 70s of metastatic bone cancer Metastatic bone cancer Breast cancer Social History Smoking/Tobacco Use Status: Never Second Hand Exposure: Yes Smoking risk assessment performed?: Yes Alcohol Intake: current Alcohol Intake frequency: holidays/special occasions only Alcohol type: wine Drug use: Never Substance use type: does not use Caregiver/Support person: No Household members: other Housing: apartment Communication Needs: None Do you need help understanding health information?: Often current occupation: Cook Pets and animals: Yes Pets and animals: cat(s) Sexually active: Yes Do you think of yourself as: straight/heterosexual Current gender identity: female What is your relationship status?: living with partner How often do you talk on the phone with friends or family?: three or more times per week How often do you get together with friends or relatives?: three or more times per week How often do you attend anglican or taoist services?: decline to answer Do you belong to any clubs or organized social groups?: no Panel score (0-1 are the most socially isolated patients): 2 What type of physical activity do you participate in: none Duration: 15-30 minutes/day Frequency: 3-4 times per week Rosa/Orthodox: No preference Special rosa needs: No Seatbelt use: always Helmet use: Yes Helmet use: always Drive intox or ride w/intox route driver salesperson: No Do you feel safe at home: Yes Do you feel safe in your relationship?: Yes History History 3 Para 3 Hx # Term Pregnancies Multiple births Hx # Pregnancies Ectopic pregnancies AB induced Hx Number of Living Children 3 AB spontaneous Exam Narrative Exam Narrative: General: Alert, well appearing, well nourished, in no acute distress. Head: Normocephalic, atraumatic Neck: Trachea midline, Neck supple. ENT: MMM. No oropharygeal lesions or exudate. Cardiac: RRR, no murmurs appreciated Resp: No respiratory distress. CTAB. Chest: Reproducible MSK tenderness to palpation of left anterior shoulder and chest wall, mild pain with ROM at left shoulder. Abd: Soft, non-distended, nontender : No suprapubic tenderness. No CVA tenderness. Extremities: No deformities. No peripheral edema. Neurologic: GCS 15. Moves all extremities freely against gravity Course Vital Signs Vital signs: Vital Signs Temperature 36.8 C 11/05/22 15:18 Pulse 90 11/05/22 15:18 Respiratory Rate 20 11/05/22 15:18 Blood Pressure 137/89 11/05/22 15:18 Pulse Oximetry 99 11/05/22 15:18 Temperature 36.8 C 11/05/22 15:18 Pulse 81 11/05/22 16:17 Pulse 84 11/05/22 16:20 Respiratory Rate 18 11/05/22 16:20 Respiratory Effort Normal 11/05/22 15:21 Respiratory Depth Normal 11/05/22 15:21 Respiratory Pattern Normal 11/05/22 15:21 Blood Pressure 122/74 11/05/22 16:17 Blood Pressure Mean 87 11/05/22 16:17 Blood Pressure Position Supine 11/05/22 15:18 Pulse Oximetry 98 11/05/22 16:20 Oxygen Delivery Method Room Air 11/05/22 15:18 Oxygen Flow Rate 0 11/05/22 15:18 Pain Level 7 11/05/22 15:21 Lab/Test Results Lab/Test Results: Laboratory Tests Range/Units 11/05/22 11/05/22 11/05/22 16:06 16:06 16:06 WBC (4.4-10.8) 10^3/uL 7.65 RBC (3.93-5.22) 10^6/uL 4.24 Hgb (11.2-15.7) g/dL 12.7 Hct (36.0-46.0) % 39.0 MCV (80-95) fL 92 MCH (27.0-33.0) pg 30.0 MCHC (32.0-36.0) % 32.6 RDW (11.7-14.6) % 13.8 Plt Count (130-400) 10^3/uL 329 MPV (8.0-11.0) fL 9.4 Immature Gran % 0.3 Neutrophils % 49.4 Lymphocytes % 39.5 Monocytes % 8.0 Eosinophils % 2.4 Basophils % 0.4 Nucleated RBC % (0.0-0.3) % 0.0 Absolute Neutrophils (1.2-6.7) 10^3/uL 3.79 Absolute Lymphocytes (1.2-3.4) 10^3/uL 3.02 Absolute Monocytes (0.1-0.8) 10^3/uL 0.61 Absolute Eosinophils (0.0-0.7) 10^3/uL 0.18 Absolute Basophils (0.0-0.2) 10^3/uL 0.03 ESR (0-20) mm/hr D-Dimer (<500) ng/mlFEU 474 Sodium (136-145) mmol/L 139 Potassium (3.5-5.1) mmol/L 3.6 Chloride (98-107) mmol/L 101 Carbon Dioxide (21.0-32.0) mmol/L 30.2 Anion Gap (3-11) mmol/L 7.8 BUN (7-18) mg/dL 10 Creatinine (0.55-1.02) mg/dL 0.8 Est GFR (CKD-EPI 2020) (mL/min/1.73m2) 99.71 Glucose (74-106) mg/dL 87 Calcium (8.5-10.1) mg/dL 9.5 Magnesium (1.8-2.4) mg/dL 2.1 Total Bilirubin (0.2-1.0) mg/dL 0.5 AST (15-37) U/L 22 ALT (14-59) U/L 32 Alkaline Phosphatase (46-116) U/L 86 Troponin I (<or=60) ng/L < 50 C-Reactive Protein (0.0-0.3) mg/dL NT-Pro-B Natriuret Pep (<300) pg/mL 45 Total Protein (6.4-8.2) g/dL 7.4 Albumin (3.4-5.0) g/dL 3.8 Range/Units 11/05/22 11/05/22 16:06 16:06 WBC (4.4-10.8) 10^3/uL RBC (3.93-5.22) 10^6/uL Hgb (11.2-15.7) g/dL Hct (36.0-46.0) % MCV (80-95) fL MCH (27.0-33.0) pg MCHC (32.0-36.0) % RDW (11.7-14.6) % Plt Count (130-400) 10^3/uL MPV (8.0-11.0) fL Immature Gran % Neutrophils % Lymphocytes % Monocytes % Eosinophils % Basophils % Nucleated RBC % (0.0-0.3) % Absolute Neutrophils (1.2-6.7) 10^3/uL Absolute Lymphocytes (1.2-3.4) 10^3/uL Absolute Monocytes (0.1-0.8) 10^3/uL Absolute Eosinophils (0.0-0.7) 10^3/uL Absolute Basophils (0.0-0.2) 10^3/uL ESR (0-20) mm/hr 12 D-Dimer (<500) ng/mlFEU Sodium (136-145) mmol/L Potassium (3.5-5.1) mmol/L Chloride (98-107) mmol/L Carbon Dioxide (21.0-32.0) mmol/L Anion Gap (3-11) mmol/L BUN (7-18) mg/dL Creatinine (0.55-1.02) mg/dL Est GFR (CKD-EPI 2020) (mL/min/1.73m2) Glucose (74-106) mg/dL Calcium (8.5-10.1) mg/dL Magnesium (1.8-2.4) mg/dL Total Bilirubin (0.2-1.0) mg/dL AST (15-37) U/L ALT (14-59) U/L Alkaline Phosphatase (46-116) U/L Troponin I (<or=60) ng/L C-Reactive Protein (0.0-0.3) mg/dL 0.60 H NT-Pro-B Natriuret Pep (<300) pg/mL Total Protein (6.4-8.2) g/dL Albumin (3.4-5.0) g/dL PAWSS Have you Been Recently Intoxicated or Drunk Within the Last 30 days?: No Result: 0
--- NOTE | 2022-11-05 18:30 | DI.RAD_ITS ---
Exam(s) XR CHEST 2V PA LATERAL EXAM: XR CHEST 2V PA LATERAL CLINICAL HISTORY: chest pain TECHNIQUE: 2D digital imaging was performed. COMPARISON: CR,XR XR PORTABLE CHEST AP from 08/17/2019 FINDINGS: HEART: Normal size. Aorta: Not dilated. PULMONARY VASCULATURE: Normal. LUNGS: Clear. PLEURAL SPACE: No pleural effusion or pneumothorax. BONE:Unremarkable for age. IMPRESSION: No acute abnormality. DATA REPOSITORY: RADIATION DOSE DELIVERED:
--- NOTE | 2022-11-05 19:24 | DI.VRAD_ITS ---
PROCEDURE INFORMATION: Exam: XR Chest Exam date and time: 11/05/2022 19:02 Age: 32 years old Clinical indication: Other: Unspecified; Patient HX: Chest pain TECHNIQUE: Imaging protocol: Radiologic exam of the chest. Views: 2 views. COMPARISON: CR XR PORTABLE CHEST AP 08/17/2019 22:34 FINDINGS: Lungs: No consolidation. Pleural spaces: No pleural effusion. No pneumothorax. Heart/Mediastinum: No cardiomegaly. Bones/joints: No acute fracture. IMPRESSION: Negative frontal chest. Dictated and Authenticated by: Loreto West MD. Ordering:DINA Cazares MD
[2022-11-05 19:59] LABS: Troponin I < 50 ng/L (<or=60)
== END 2022-11-05 20:41 | disposition home or self-care (01) ==
PROVIDERS: Emergency Provider Student in an Organized Health Care Education/Training Program; PCP Nurse Practitioner Family
DX: R07.89 Other chest pain
CPT/HCPCS: 80053; 85652; 93005; 96374; 99285; 71046; 83735; 83880; 84484; 85025; 85379; 86140; 93010; 99284; J1885

== ENCOUNTER 2023-07-06 16:19 | Outpatient (REF) | payer MEDICAID, SELFPAY ==
--- NOTE | 2023-07-06 15:30 | PAPFT_PTH ---
PATIENT: Amina Jones LOC: [facility] U#:[id number] AGE/SX: 32/F ROOM: RE07/06/[address]: Summer Vadlez DO : 1990 BED: DIS: 07/06/2023 SPEC #: [id number] RECD: 07/06/23 17:35 STATUS: FELICIA REDalila #: [id number] RODRIGO: 07/06/23 15:[address]: Summer Valdez DEPT: COUNT INCLUDES THE [facility] Cytology RECD BY: Cristina Hernandez ENTERED: 07/06/23 17:35 SP TYPE: PAPFT OTHR DR: Nuzhat Garcia, FLAVORER Tissues: 1 - CX/ENDOCX FOR PAP SMEARS Procedures: PAP THIN PREP/[facility] Screening Comments: [id number] (CHLAMYDIA/GC) (UNSATISFACTORY FOR EVALUATION)
[2023-07-07 15:29] LABS: Chlamydia Result Negative (Negative); GC Result Negative (Negative)
== END 2023-07-06 16:20 | disposition home or self-care (01) ==
LOC: LBN 16:19
PROVIDERS: PCP Nurse Practitioner Family; Visit Provider Obstetrics & Gynecology
DX: Z01.419 Encounter for gynecological examination (general) (routine) without abnormal findings (principal); N92.0 Excessive and frequent menstruation with regular cycle
CPT/HCPCS: 87491; 87591; 88142

== ENCOUNTER → 2023-07-16 00:27 | Outpatient (CLI) | payer MEDICAID, SELFPAY ==
--- NOTE | 2023-07-16 06:30 | DI.US_ITS ---
Exam(s) US PELVIS TRANSVAGINAL EXAM: US PELVIS TRANSVAGINAL CLINICAL HISTORY: DUB, HEAVY MENSES, N92.0 EXCESSIVE/FREQ MENSTRUATION TECHNIQUE: Transabdominal and transvaginal imaging was performed using standard protocol. COMPARISON: CT CT ABDOMEN PELVIS WO from 07/30/2021 FINDINGS: UTERUS: Anteverted. 9.0 x 4.4 x 5.6 cm Endometrium: 5 mm Myometrium: Unremarkable. Cervix: Unremarkable. OVARIES: Right: Cyst or mass: None. Left: Cyst or mass: None. DOPPLER: Color: Symmetric and uniform flow to both ovaries. No hyperemia. CUL-DE-SAC: Free fluid: None. IMPRESSION: 1. Normal-appearing uterus with endometrial stripe within normal limits. 2. Unremarkable bilateral ovaries. DATA REPOSITORY:
== END ==
PROVIDERS: PCP Nurse Practitioner Family; Visit Provider Obstetrics & Gynecology
DX: N92.0 Excessive and frequent menstruation with regular cycle (principal)
CPT/HCPCS: 76830; 76856

== ENCOUNTER 2024-11-06 07:35 | Outpatient (CLI) | payer BC, SELFPAY ==
--- NOTE | 2024-11-06 12:44 | DI.RAD_ITS ---
Exam(s) XR KNEE LT 3V AP,LAT,ZURDO EXAM: XR KNEE LT 3V AP,LAT,ZURDO CLINICAL HISTORY: Left knee pain,m25.562. TECHNIQUE: 2D digital imaging was performed. Three views. COMPARISON: CR XR KNEE RT 2V AP,LAT from 08/26/2022 FINDINGS: BONES: No acute fracture is present. No bony destructive lesion is seen. JOINTS: The knee is normally aligned. No joint effusion is seen. The joint spaces SOFT TISSUE: Normal. IMPRESSION: Normal radiographs of the left knee. DATA REPOSITORY: RADIATION DOSE DELIVERED:
== END 2024-11-06 07:55 ==
LOC: DI 07:35
PROVIDERS: PCP Nurse Practitioner Family; Visit Provider Nurse Practitioner Family
DX: M25.562 Pain in left knee (principal)
CPT/HCPCS: 73562

== ENCOUNTER 2025-01-24 18:09 | Outpatient (REF) | payer BC, MEDICAID, SELFPAY | END 2025-01-24 18:10 | disposition home or self-care (01) | LOC: LBN 18:09 | PROVIDERS: PCP Nurse Practitioner Family; Visit Provider Obstetrics & Gynecology | DX: Z12.4 Encounter for screening for malignant neoplasm of cervix (principal) | CPT/HCPCS: 88142; 87624 ==